=== PATIENT | female | born 1945 | race Caucasian/White ===

== ENCOUNTER 2020-02-28 08:32 | Outpatient (CLI) | payer MEDICARE, SELFPAY ==
--- NOTE | ~2020-02-28 | MM_ITS ---
EXAMINATION: MM screening kika BI w jaqueline HISTORY: Screening TECHNIQUE: Craniocaudal and mediolateral oblique 3-D tomosynthesis images were obtained and synthetic 2-D images were generated. CAD analysis was submitted and interpreted. COMPARISON: Comparison to multiple prior studies sequentially, with oldest reviewed study dated 12/2013. BREAST PARENCHYMAL COMPOSITION: There are scattered areas of fibroglandular density. FINDINGS: There is no evidence of suspicious mass, calcification, or architectural distortion to sugg est malignancy in either breast. There has been no suspicious interval change. IMPRESSION: 1. No mammographic evidence of malignancy. 2. Recommend routine screening mammography in one year. BI-RADS Category 1: Negative Reviewed, dictated and finalized at location A.
== END 2020-02-28 08:33 | disposition home or self-care (01) ==
PROVIDERS: PCP Family Medicine; Visit Provider Family Medicine
DX: Z12.31 Encounter for screening mammogram for malignant neoplasm of breast (principal)
CPT/HCPCS: 77063; 77067

== ENCOUNTER 2021-03-13 07:25 | Outpatient (CLI) | payer MEDICARE, SELFPAY ==
--- NOTE | ~2021-03-13 | MM_ITS ---
EXAMINATION: MM screening kika BI w jaqueline HISTORY: Screening mammogram TECHNIQUE: Craniocaudal and mediolateral oblique 3-D tomosynthesis images were obtained and synthetic 2-D images were generated. CAD analysis was submitted and interpreted. COMPARISON: 02/28/2020, 02/01/2019, 12/15/2017 bilateral digital screening mammogram examinations BREAST PARENCHYMAL COMPOSITION: There are scattered areas of fibroglandular density. FINDINGS: There is a biopsy marker on the right; history of prior bilateral benign breast biopsies. T here is no evidence of suspicious mass, calcification, or architectural distortion to suggest maligna ncy in either breast. There has been no suspicious interval change. IMPRESSION: 1. No mammographic evidence of malignancy. 2. Recommend routine screening mammography in one year. BI-RADS Category 1: Negative Reviewed, dictated and finalized at location A.
== END 2021-03-13 07:26 | disposition home or self-care (01) ==
PROVIDERS: PCP Family Medicine; Visit Provider Family Medicine
DX: Z12.31 Encounter for screening mammogram for malignant neoplasm of breast (principal)
CPT/HCPCS: 77063; 77067

== ENCOUNTER 2021-03-26 15:46 | Outpatient (CLI) | payer MEDICARE, SELFPAY ==
--- NOTE | ~2021-03-26 | US_ITS ---
EXAMINATION: US venous doppler [facility] DATE: 03/26/2021 16:37 INDICATION: Bilateral lower limb edema TECHNIQUE: Cueto scale images without and with compression and Doppler images of the bilateral lower e xtremity veins were obtained. COMPARISON: None FINDINGS: The right common femoral vein, profunda femoral vein, femoral vein, popliteal vein, peroneal trunk, p osterior tibial veins, and greater saphenous vein are patent. The left common femoral vein, profunda femoral vein, femoral vein, popliteal vein, peroneal trunk, po sterior tibial veins, and greater saphenous vein are patent. IMPRESSION: 1. Patent bilateral lower extremity veins. No evidence of deep venous thrombosis. Reviewed, dictated and finalized at location B. IMPRESSION: 1. Patent bilateral lower extremity veins. No evidence of deep venous thrombosi s.
== END 2021-03-26 15:47 | disposition home or self-care (01) ==
LOC: ANHIMG 15:51
PROVIDERS: Visit Provider Hospitalist
DX: M79.89 Other specified soft tissue disorders (principal)
CPT/HCPCS: 93970

== ENCOUNTER 2021-09-02 10:58 | Outpatient (CLI) | payer MEDICARE, SELFPAY ==
--- NOTE | ~2021-09-02 | US_ITS ---
EXAMINATION: US venous doppler LE RT EXAM DATE: 09/02/2021 11:38 INDICATION: Right leg pain and swelling. TECHNIQUE: Multiple grayscale, color flow and Doppler images of the right lower extremity deep venous system were obtained and reviewed. Comparison is made to prior examination from 03/26/2021. FINDINGS: The right common femoral, femoral and profunda veins demonstrate normal color flow, respira tory variation, augmentation and compressibility. Compressibility, color flow confirmed within the r ight popliteal, posterior tibial, peroneal, and greater saphenous veins. IMPRESSION: 1. No right lower extremity deep venous thrombosis. Reviewed, dictated and finalized at location B.
== END 2021-09-02 10:59 | disposition home or self-care (01) ==
LOC: ANHIMG 11:01
PROVIDERS: Visit Provider Internal Medicine
DX: R22.41 Localized swelling, mass and lump, right lower limb (principal)
CPT/HCPCS: 93971

== ENCOUNTER 2021-09-03 13:11 | Outpatient (CLI) | payer MEDICARE, SELFPAY ==
--- NOTE | ~2021-09-03 | XR_ITS ---
EXAM: XR ankle RT min 3V, XR foot RT min 3V HISTORY: ACUTE RT ANKLE PAIN LATERAL SWELLING NO INJURY; right foot pain COMPARISON: None available FINDINGS: Mild osteopenia. No fracture or dislocation. Scattered degenerative changes in the ankle a nd foot joints. Os navicularis. Plantar enthesopathy. Os trigonum. Small volume right ankle joint eff usion. IMPRESSION: No acute osseous finding in the right ankle or foot. Small right ankle joint effusion. Reviewed, dictated and finalized at location K. IMPRESSION: No acute osseous finding in the right ankle or foot. Small right ankle joint ef fusion.
== END 2021-09-03 13:12 | disposition home or self-care (01) ==
LOC: ANHIMG 13:21
PROVIDERS: PCP Internal Medicine; Visit Provider Nurse Practitioner Family
DX: M25.571 Pain in right ankle and joints of right foot (principal); M79.671 Pain in right foot; M25.741 Osteophyte, right hand
CPT/HCPCS: 73610; 73630

== ENCOUNTER 2021-10-16 08:43 | Outpatient (CLI) | payer MEDICARE, SELFPAY ==
--- NOTE | ~2021-10-16 | DEXA_ITS ---
Bone Density Report Name: ELLY BA Age: 76 Sex: Female Ethnicity: White Date of : 1945 Indication: postmenopausal osteoporosis; monitoring treatment; height loss; prior fracture; Referring Provider: COLLIN, ANTHONY Study: Bone densitometry was performed. Exam Date: October 16, 2021 Accession number: [id number] Bone Density: Region BMD T-score Z-score Classification AP Spine(L1-L4) 0.660 -3.5 -1.0 Osteoporosis Femoral Neck (Left) 0.506 -3.1 -0.9 Osteoporosis Total Hip (Left) 0.651 -2.4 -0.5 Osteopenia Femoral Neck (Right) 0.523 -2.9 -0.8 Osteoporosis Total Hip (Right) 0.677 -2.2 -0.3 Osteopenia Total Hip Mean 0.664 -2.3 -0.4 Osteopenia World Health Organization criteria for BMD impression classify patients as: Normal (T-score at or above -1.0), Osteopenia (T-score between -1.0 and -2.5), or Osteoporosis (T-score at or below -2.5). 10-year Fracture Risk: FRAX not reported because: Some T-score for Spine Total or Hip Total or Femoral Neck at or below -2.5 Treated for osteoporosis Previous Exams: Region Exam Age BMD T-score BMD Change BMD Change Date g/cm2 vs Baseline vs Previous AP Spine (L1-L4) 10/16/2021 76 0.660 -3.5 -0.031 (-4.4%) -0.001 (-0.2%) 02/01/2019 73 0.661 -3.5 -0.029 (-4.2%) -0.025 (-3.7%) 01/06/2017 71 0.687 -3.3 -0.004 (-0.6%) -0.004 (-0.6%) 09/14/2013 67 0.690 -3.2 Total Hip(Left) 10/16/2021 76 0.651 -2.4 -0.075 (-10.3% -0.076 (-10.4% 02/01/2019 73 0.726 -1.8 0.001 (0.1%)# -0.010 (-1.3%) 01/06/2017 71 0.736 -1.7 0.010 (1.4%)# 0.010 (1.4%)# 09/14/2013 67 0.726 -1.8 Total Hip(Right) 10/16/2021 76 0.677 -2.2 -0.118 (-14.9% -0.097 (-12.5% 02/01/2019 73 0.774 -1.4 -0.021 (-2.7%) 0.018 (2.4%) 01/06/2017 71 0.756 -1.5 -0.039 (-5.0%) -0.039 (-5.0%) 09/14/2013 67 0.796 -1.2 *Denotes significance at 95% confidence level, LSC for AP Spine = 0.022 g/cm2, LSC for Total Hip = 0.027 g/cm2 # Denotes dissimilar scan types or analysis methods Clinical Information Provided by Patient: Has had a low trauma fracture Is being treated for osteoporosis Patient maximum height was 63 Menopause Age: 49 No regular weight bearing exercise Drinks caffeinated beverages Onset of menses at age 12 Number of children 2 Impression: The patient has established osteoporosis, based on the Total Spine T-score and the existence of a prior fracture. The patient has risk fa
== END 2021-10-16 08:44 | disposition home or self-care (01) ==
PROVIDERS: PCP Internal Medicine; Visit Provider Internal Medicine
DX: Z78.0 Asymptomatic menopausal state (principal); M85.89 Other specified disorders of bone density and structure, multiple sites; M81.0 Age-related osteoporosis without current pathological fracture
CPT/HCPCS: 77080

== ENCOUNTER 2022-11-03 09:20 | Outpatient (CLI) | payer MEDICARE, SELFPAY ==
--- NOTE | ~2022-11-03 | MM_ITS ---
EXAMINATION: MM screening kika BI w jaqueline HISTORY: Screening mammogram TECHNIQUE: Craniocaudal and mediolateral oblique 3-D tomosynthesis images were obtained and synthetic 2-D images were generated. CAD analysis was submitted and interpreted. COMPARISON: 03/13/2021, 02/28/2020, 02/01/2019 bilateral screening mammogram examinations BREAST PARENCHYMAL COMPOSITION: There are scattered areas of fibroglandular density. FINDINGS: There is a biopsy marker on the right. History of bilateral benign breast biopsies. There i s no evidence of suspicious mass, calcification, or architectural distortion to suggest malignancy in either breast. There has been no suspicious interval change. IMPRESSION: 1. No mammographic evidence of malignancy. 2. Recommend routine screening mammography in one year. BI-RADS Category 1: Negative Reviewed, dictated and finalized at location A.
== END 2022-11-03 09:21 | disposition home or self-care (01) ==
PROVIDERS: PCP Internal Medicine; Visit Provider Internal Medicine
DX: Z12.31 Encounter for screening mammogram for malignant neoplasm of breast (principal)
CPT/HCPCS: 77063; 77067

== ENCOUNTER 2024-08-18 16:24 | Emergency (ER) | payer MEDICARE, SELFPAY ==
--- NOTE | ~2024-08-18 | XR_ITS ---
XR wrist RT min 3V 08/18/2024 17:35 Indication: Procedure: 3 views right wrist Comparison: 04/16/2014 Findings: There is a fracture of the radial styloid which is possibly comminuted. There is impaction of the distal aspect of the radius with ventral angulation. There is moderate diffuse soft tissue swe lling of the wrist. 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 Impression: 1: Mildly displaced, possibly comminuted distal radial fracture with ventral angulation. This is near the site of prior fracture seen on 2013 examination. Reviewed, dictated and finalized at location A. Impression: 1: Mildly displaced, possibly comminuted distal radial fracture with ventral an gulation. This is near the site of prior fracture seen on 2013 examination.
--- NOTE | ~2024-08-18 | XR_ITS ---
XR elbow RT min 3V 08/18/2024 17:35 Indication: Right elbow pain after fall Procedure: 3 views right elbow Comparison: No prior studies for comparison. Findings: There is an avulsion fracture from the right humeral lateral epicondyle with associated sof t tissue swelling. Moderate joint effusion. No foreign bodies. Impression: 1: Avulsion fracture right humeral lateral epicondyle with associated soft tissue swelling. Reviewed, dictated and finalized at location A. Impression: 1: Avulsion fracture right humeral lateral epicondyle with associated soft tiss ue swelling.
--- NOTE | ~2024-08-18 | CT_ITS ---
CT diagnostic chest wo con Ordering provider: Kisha Amin PA-C History: 78 years Female with . R rib/breast pain s/p fall . Comparison: None. Technique: CT chest without IV contrast.Radiation reduction technique utilized.The dose-length produc t was 470.25 mGy-cm. FINDINGS: VISUALIZED THORACIC INLET: Normal. MEDIASTINUM: Aorta/coronary arteries: Mild atheromatous disease. Heart/other: The heart is not enlarged. Lymph nodes: No mediastinal or hilar adenopathy. LUNGS: 5.4, 4 and 4 mm nodules seen in the right upper lobe. Possible Granuloma versus nodule seen in the left lower lobe measuring 5 mm. Focal atelectatic changes versus pneumonia seen in the right upper lobe. Dependent atelectatic changes with minimal fibrotic changes in the lung bases. minimal atelectatic changes in the lingula.. No pulmonary masses. No effusions. No pneumothorax. VISUALIZED UPPER ABDOMEN: Status post cholecystectomy. Small sliding hiatus hernia. Otherwise, the vi sualized upper abdomen is normal. MUSCULOSKELETAL: Soft tissues: The superficial soft tissues are normal. Bones: Age appropriate degenerative changes of the spine. No definite rib fractures seen. IMPRESSION: 1. Multiple nodules in the lungs with the largest measuring 5 mm. 6 months follow-up CT is advised. 2. Focal atelectatic changes in the right upper lobe and lingula. Follow-up advised. 3. No definite fractures seen. 4. Sliding hiatus hernia. Reviewed, dictated and finalized at location A. IMPRESSION: 1. Multiple nodules in the lungs with the largest measuring 5 mm. 6 months fol low-up CT is advised. 2. Focal atelectatic changes in the right upper lobe and lingula. Follow-up ad vised. 3. No definite fractures seen. 4. Sliding hiatus hernia.
--- OUTSIDE RECORDS SUMMARY | 2024-08-18 16:26 | XMS_ITS | Clinical Summary ---
Author Organization [facility] Address [address] [place] [address] Care Team Providers Care Sighter Name Role Phone Joe Harman MD Unavailable [phone] Willis Gill MD Primary Care Provider Allergies No known active allergies Medications aspirin EC (ASPIRIN EC) 81 MG tablet Take 1 tablet (81 mg total) by mouth daily. 4 Active sertraline (ZOLOFT) 25 MG tabletIndications :Mild episode of recurrent major depressive disorder Take 0.5 tablets (12.5 mg total) by mouth nightly at bedtime. 90 tablet 1 4 Active rosuvastatin (CRESTOR) 5 MG tabletIndications :TIA (transient ischemic attack),Benign essential hypertension Take 1 tablet (5 mg total) by mouth nightly at bedtime. New dose 90 tablet 1 4 Active omeprazole (PRILOSEC) 40 MG capsuleIndication s:Gastroesophagea l reflux disease without esophagitis Take 1 capsule (40 mg total) by mouth daily as needed. 90 capsule 2 4 Active losartan (COZAAR) 25 MG tabletIndications :Benign essential hypertension Take 1 tablet (25 mg total) by mouth daily. 90 tablet 1 4 Active alendronate (FOSAMAX) 70 MG tabletIndications :Age-related osteoporosis without current pathological fracture Take 1 tablet (70 mg total) by mouth every 7 days. Take the medicine on an empty stomach. It should be taken as soon as you get out of bed in the morning and at least 30 minutes before any food, beverage, or other medicines. Take with about 8oz of water. 12 tablet 1 4 Active oxybutynin XL (DITROPAN-XL) 5 MG 24 hr tabletIndications :Overactive bladder Take 1 tablet (5 mg total) by mouth daily. 90 tablet 4 Active albuterol sulfate HFA 108 (90 Base) MCG/ACT inhalerIndication s:URTI (acute upper respiratory infection) Inhale 2 puffs into the lungs every 6 (six) hours as needed. 18 g 5 Active benzonatate (TESSALON) 200 MG capsuleIndication s:URTI (acute upper respiratory infection) Take 1 capsule (200 mg total) by mouth 3 (three) times daily as needed. 20 capsule 5 07/21/19 25 oseltamivir (TAMIFLU) 75 MG capsuleIndication s:URTI (acute upper respiratory infection),Influe nza A Take 1 capsule (75 mg total) by mouth 2 (two) times daily for 5 days. 10 capsule 5 07/19/19 25 Active Problems Problem Noted Date Diagnosed Date Anemia, unspecified type 09/24/2023 Multiple atypical skin moles 09/24/2023 Mild episode of recurrent major depressive disor farshad 01/09/2022 Osteoporosis 11/03/2021 Osteopenia 11/03/2021 Nonrheumatic tricuspid valve regurgitation 05/21 Primary osteoarthritis of both knees 05/21/2021 TIA (transient ischemic attack) 01/01/2016 Nonrheumatic aortic valve insufficiency 01/01/20 16 Benign essential hypertension Encounters Date Type Department Care Team Description 07/14/2024 2:20 PM ASSISTANT PROFESSOR OF BUSINESS Office Visit [facility] - [address] [place] [address] Willis Gill MD Cough; Congestion; Fatigue; Diarrhea 07/14/2024 Travel from Last 3 Months Immunizations Name Administration Dates Next Due Fluad influenza vaccine, Camilo drivalent (aIIV4), Inactivated, adjuvanted, preservative free, 0.5 mL,IM use 03/09/2017 Fluzone High Dose (IIV, triv alent, 0.5mL) 04/10/2024 Fluzone High Dose - >Age 65 (Prefilled Syringe) 03/12/2023,03/23/2022,03/09/2020,2017,03/26/2015 Influenza Adult (Generic) 03/08/2021 MODERNA COVID-19 (12+) MRNA, LNP-S, PF, 100 MCG/ 0.5 ML DOSE 03/14/2021,08/12/2020,07/11/2020 Pneumococcal (Pneumovax 23) 08/20/2021 Pneumococcal (Prevnar 13) 09/25/2022 Family History Medical History Relation Comments CABG Brother [place] Brother Stent Cardiac Brother PTCA Heart Attack Father Cancer Mother Colon Cancer Mother Stroke Mother Arthritis Sister Cancer Sister breast cancer PTCA Sister Parkinson's Disease Sister Stent Cardiac Sister Relation Status Comments Brother Father Mother Sister Alive Social History Tobacco Use Types Packs/Day Years Used Date Smoking Tobacco: Never Smokeless Tobacco: Never Tobacco Cessation:Counseling Given: Yes Comments:counseled by Dr Gill Alcohol Use Standard Drinks/Week Comments Not Currently 0 (1 standard drink = 0.6 oz pur e alcohol) PHQ-2 Answer Date Recorded Patient Health Questionnaire-2 Score 0 04/10/2024 Comments No Sex and Gender Information Value Date Recorded Sex Assigned at Female 07/14/2024 2:34 PM ASSISTANT PROFESSOR OF BUSINESS Legal Sex Female 10:30 PM CDT Gender Identity Female 09/08/2021 2:46 PM CDT Sexual Orientation Straight 07/14/2024 2: 34 PM ASSISTANT PROFESSOR OF BUSINESS Occupation Industry Job Start Date Job End Date Not on file Not on file Not on file Not on file Last Filed Vital Signs Vital Sign Reading Time Taken Comments Blood Pressure 103/80 07/14/2024 2:35 PM ASSISTANT PROFESSOR OF BUSINESS Pulse 81 07/14/2024 2:35 PM ASSISTANT PROFESSOR OF BUSINESS Temperature 37.6 C (99.6 F) 07/14/2024 2:35 PM ASSISTANT PROFESSOR OF BUSINESS Respiratory Rate 12 07/14/2024 2:35 PM ASSISTANT PROFESSOR OF BUSINESS Oxygen Saturation 94% 07/14/2024 2:35 PM ASSISTANT PROFESSOR OF BUSINESS Inhaled Oxygen Concentration - - Weight 75.7 kg (166 lb 12.8 oz) 07/14/2024 2:35 PM ASSISTANT PROFESSOR OF BUSINESS Height 160 cm (5' 3 ) 07/14/2024 2:35 PM ASSISTANT PROFESSOR OF BUSINESS Body Mass Index 29.55 07/14/2024 2:35 PM ASSISTANT PROFESSOR OF BUSINESS Plan of Treatment Upcoming Encounters Date Type Department Care Team (Late st Contact Info) Description 08/23/2024 2:40 PM CDT Office Visit [facility] - [place] [address] [place] [address] [address] [place] [address] Willis Gill MD [address] [facility] [address] [place], [place] [id number] 10/25/2024 11:00 AM CDT Office Visit [facility], [facility] [address] [place], [place] [id number] Joe Harman MD [facility]. [facility] [address] [place], [place] [id number] Health Maintenance Due Date Last Done Comments DTaP, Tdap and Td Vaccines (1 - Tdap) 10/16/1963 Zoster Vaccines (1 of 2) 1994 Annual Medicare Wellness Visit 2009 RSV Immunization or 60+ Years (1 - 1-dose 75+ series) 10/16/2019 COVID-19 Vaccine ( season) 2024 11/16/2022, 03/14/2021, 08/12/2020, Additional history exists PHQ-2 (Physician [place]) 05/24/2024 04/10/2024 Colorectal Cancer Screening Colonoscopy (10 Years) Discontinued 06/22/2018, 05/03/2013 Dexa Scan (General) Completed 10/16/2021, 9 Hepatitis C Completed 09/25/2022, 08/20/2021 Pneumococcal Vaccine: 65+ Years Completed 09/25/2022, 08/20/2021 Influenza Adult Completed 04/10/2024, 02/22, 03/23/2022, Additional history exists Meningococcal B Vaccine Aged Out No l onger eligible based on patient's age to complete this topic Meningococcal Vaccine Aged Out No jossy maira eligible based on patient's age to complete this topic RSV Immunizations Under 20 Months Aged Out No longer eligible based on patient's age to complete this topic Procedures Procedure Name Priority Date/Time Associated Diagnosis Comments CORONAVIRUS (COVID-19) INFLUENZA A & B ANTIGEN IA PANEL Routine 07/14/2024 URTI (acute upper respiratory infection) HEPATITIS C ANTIBODY Routine 09/25/2022 10:06 AM CDT General medical exam BONE DENSITY/DEXA Routine 10/16/2021 12: 00 AM CDT Postmenopausal COLONOSCOPY GENERIC (SCAN ORDER) 06/22/2018 from Last 3 Months or Most Recently Relevant to Health Maintenance Results * (ABNORMAL) CORONAVIRUS (COVID-19) INFLUENZA A & B ANTIGEN IA PANEL (07/14/2024) [facility] CORONAVIRUS ANTIGEN IA NEGATIVE NEGATIVE [address], [place] INFLUENZA A POSITIVE(A) NEGATIVE MG[address], [place] INFLUENZA B NEGATIVE NEGATIVE [address], [place] Internal Control: VALID VALID [address] [place] NASAL STRUCTURE / Unknown 07/14/2024 us Willis Gill MD MICROBIOLOGY - GENERAL ORDERABLE S Final Result [address], [place] [address] [place] [address], [place] [phone] * HEPATITIS C ANTIBODY (09/25/2022 10:06 AM CDT) Pathologist [facility] HEPATITIS C AB NON-REACTI VE NON-REACT KYLE 09/25/2022 9:[address] [facility] Comment: ANTIBODIES TO HCV NOT DETECTED. DOES NOT EXCLUDE THE POSSIBILITY OF EXPOSURE TO HCV. 09/25/2022 10:0 6 AM CDT us Willis Gill MD LABORATORY Final Result [facility] [address] [place] [address], [place] [phone] [id number] * BONE DENSITY/DEXA (10/16/2021 12:00 AM CDT) Anatomical Region Laterality Modality Bone Bone Density 10/16/2021 Willis Gill MD DEXA Final Result * COLONOSCOPY GENERIC (06/22/2018) 06/22/2018 Narrative 06/22/2018 Ordered by an unspecified provider. Documents Scanned SCANNING Final Result from Last 3 Months or Most Recently Relevant to Health Maintenance Insurance MEDICARE MEDICARE Care Teams Sighter Relationship Specialty Start Date End Date Willis Gill MD [address] [facility] [address] [place] [address] PCP - General INTERNAL MEDICINE 04/03/21 Joe Harman MD [facility]. [address] [address] [place] [employer] Operator CARDIOVASCULAR DISEASE 12/23/15
--- OUTSIDE RECORDS SUMMARY | 2024-08-18 16:26 | XMS_ITS | Encounter Summary ---
Author Organization [facility] Address [address] [place] [address] Care Team Providers Care Group Social Worker Name Role Phone Joe Harman MD Unavailable [phone] Perla Luna MD Primary Care Provider Maria D Dawn NP Primary Care Provider Willis Almonte MD Primary Care Provider [phone] Encounter Details Date Type Department Care Team (Late st Contact Info) Description 09/21/2017 [facility] at [address] [address] Tex Patel MA Social History Tobacco Use Types Packs/Day Years Used Date Smoking Tobacco: Never Smokeless Tobacco: Never Alcohol Use Standard Drinks/Week Comments No 0 (1 standard drink = 0.6 oz pur e alcohol) Comments Unknown Sex and Gender Information Value Date Recorded Sex Assigned at Female 07/14/2024 2:34 PM RAMPMAN Legal Sex Female 10:30 PM CDT Gender Identity Female 09/08/2021 2:46 PM CDT Sexual Orientation Straight 07/14/2024 2: 34 PM RAMPMAN Occupation Industry Job Start Date Job End Date Not on file Not on file Not on file Not on file documented as of this encounter Progress Notes * PEMA Valenzuela - 09/21/2017 2:35 PM CDT PG pt send letter continue current meds documented in this encounter Plan of Treatment Upcoming Encounters Date Type Department Care Team (Late st Contact Info) Description 08/23/2024 2:40 PM CDT Office Visit [facility] Medical Group Multispecialty Care - New Site [address] [facility] [address] [place] [address] Willis Gill MD [address] [facility] [address] [place] [address] 10/25/2024 11:00 AM CDT Office Visit [facility] [address] [facility] [address] [place], [place] [id number] Joe Harman MD Three [facility]. [address] [place], [place] [id number] documented as of this encounter Procedures Procedure Name Priority Date/Time Associated Diagnosis Comments THYROID STIM HORMONE TSH Routine 08/28/2020 CBC (OUTSIDE LAB) Routine 07/25/2020 COMPREHENSIVE METABOLIC PANEL Routine 07/25/2020 LIPID PANEL Routine 07/25/2020 CK (CPK) Routine 07/25/2020 CBC (OUTSIDE LAB) Routine 12/26/2019 COMPREHENSIVE METABOLIC PANEL Routine 12/26/2019 LIPID PANEL Routine 03/01/2019 CBC (OUTSIDE LAB) Routine 08/17/2018 COMPREHENSIVE METABOLIC PANEL Routine 08/17/2018 LIPID PANEL Routine 08/17/2018 THYROID STIM HORMONE TSH Routine 08/17/2018 VITAMIN D, 25 OH Routine 08/17/2018 CK (CPK) Routine 08/17/2018 CBC (OUTSIDE LAB) Routine 03/02/2018 COMPREHENSIVE METABOLIC PANEL Routine 03/02/2018 BASIC METABOLIC PANEL Routine 09/20/2017 LIPID PANEL Routine 09/20/2017 documented in this encounter Results * THYROID STIM HORMONE, TSH (08/28/2020) TSH 1.97 0.40 - 4.50 08/28/2020 us [facility] Final Result * CBC (OUTSIDE LAB) (07/25/2020) WBC 3.9 HGB 14.5 HCT 42.6 PLT 127 07/25/2020 us Doc [facility] Abstract LAB-OUTSIDE/ABSTRACTED Final Result * CK (CPK) (07/25/2020) CPK 50 29 - 143 07/25/2020 us Doc [facility] Final Result * COMPREHENSIVE METABOLIC PANEL (07/25/2020) SODIUM S/P/B 143 POTASSIUM S/P/B 4.3 CO2 30 CHLORIDE S/P/B 107 GLUCOSE 104 mg/dL CALCIUM S/P/B 9.4 BUN 11 CREATININE S/P/B 0.79 0.5 - 1.0 EGFR AFR. AMER. 85 <=90 EGFR NON-AFR. AMER. 73 <=90 ALKALINE PHOSPHATASE S/P/B 118 ALT 18 AST 21 BILIRUBIN TOTAL S/P/B 0.9 ALBUMIN S/P/B 3.8 3.5 - 5.0 TOTAL PROTEIN S/P/B 6.4 GLOBULIN 2.6 07/25/2020 us Doc [facility] Final Result * LIPID PANEL (07/25/2020) CHOLESTEROL 183 HDL 69 TRIGLYCERIDES 60 NON HDL CHOLESTEROL 114 LDL (CALCULATED) 99 07/25/2020 us [employer] [facility] Edited Resul t - Final * CBC (OUTSIDE LAB) (12/26/2019) Pathologist [facility] WBC 3.8 HGB 14.7 HCT 43.3 PLT 139 12/26/2019 [facility]-OUTSIDE/ABSTRACTED Final Result * COMPREHENSIVE METABOLIC PANEL (12/26/2019) Pathologist [facility] SODIUM S/P/B 142 POTASSIUM S/P/B 3.8 CO2 29 CHLORIDE S/P/B 106 GLUCOSE 98 mg/dL CALCIUM S/P/B 9.2 BUN 9 CREATININE S/P/B 0.83 0.5 - 1.0 EGFR AFR. AMER. 80 <=90 EGFR NON-AFR. AMER. 69 <=90 ALKALINE PHOSPHATASE S/P/B 95 ALT 15 AST 20 BILIRUBIN TOTAL S/P/B 1.0 ALBUMIN S/P/B 3.8 3.5 - 5.0 TOTAL PROTEIN S/P/B 6.3 GLOBULIN 2.5 12/26/2019 us Doc [facility] Final Result * LIPID PANEL (03/01/2019) CHOLESTEROL 171 HDL 65 TRIGLYCERIDES 82 NON HDL CHOLESTEROL 106 LDL (CALCULATED) 89 03/01/2019 us Doc [facility] Edited Resul t - Final * CK (CPK) (08/17/2018) CPK 86 08/17/2018 us Doc [facility] Final Result * LIPID PANEL (08/17/2018) Pathologist [facility] CHOLESTEROL 177 HDL 64 TRIGLYCERIDES 89 NON HDL CHOLESTEROL 113 LDL (CALCULATED) 95 08/17/2018 us Doc [facility] Edited Resul t - Final * VITAMIN D, 25 OH (08/17/2018) Pathologist [facility] VITAMIN D 25 HYDROXY S/P/B 30 08/17/2018 us Doc [facility] Final Result * CBC (OUTSIDE LAB) (08/17/2018) [facility] WBC 2.9 HGB 13.1 HCT 38.1 PLT 147 08/17/2018 us Doc [facility] LAB-OUTSIDE/ABSTRACTED Final Result * THYROID STIM HORMONE, TSH (08/17/2018) Pathologist [facility] TSH 2.38 08/17/2018 us Doc [facility] Final Result * COMPREHENSIVE METABOLIC PANEL (08/17/2018) Pathologist [facility] SODIUM S/P/B 141 POTASSIUM S/P/B 4.4 CO2 27 CHLORIDE S/P/B 106 GLUCOSE 104 mg/dL CALCIUM S/P/B 9.3 BUN 13 CREATININE S/P/B 0.97 0.5 - 1.0 EGFR AFR. AMER. 67 <=90 EGFR NON-AFR. AMER. 58 <=90 ALKALINE PHOSPHATASE S/P/B 109 ALT 16 AST 24 BILIRUBIN TOTAL S/P/B 0.7 ALBUMIN S/P/B 3.9 3.5 - 5.0 TOTAL PROTEIN S/P/B 6.3 GLOBULIN 2.4 08/17/2018 us Doc [facility] Edited Resul t - Final * CBC (OUTSIDE LAB) (03/02/2018) WBC 3.1 HGB 13.9 HCT 39.5 PLT 151 03/02/2018 us Doc [facility] LAB-OUTSIDE/ABSTRACTED Final Result * COMPREHENSIVE METABOLIC PANEL (03/02/2018) SODIUM S/P/B 142 POTASSIUM S/P/B 4.1 CO2 27 CHLORIDE S/P/B 109 GLUCOSE 100 mg/dL CALCIUM S/P/B 8.9 BUN 9 CREATININE S/P/B 0.81 0.5 - 1.0 EGFR AFR. AMER. 84 <=90 EGFR NON-AFR. AMER. 72 <=90 ALKALINE PHOSPHATASE S/P/B 107 ALT 18 AST 23 BILIRUBIN TOTAL S/P/B 0.9 ALBUMIN S/P/B 3.8 3.5 - 5.0 TOTAL PROTEIN S/P/B 6.3 GLOBULIN 2.5 03/02/2018 us Doc [facility] Final Result * BASIC METABOLIC PANEL (09/20/2017) SODIUM S/P/B 142 POTASSIUM S/P/B 4.0 CO2 27 CHLORIDE S/P/B 107 GLUCOSE 96 mg/dL CALCIUM S/P/B 9.1 BUN 8 CREATININE S/P/B 0.78 0.5 - 1.0 EGFR AFR. AMER. 88 <=90 EGFR NON-AFR. AMER. 76 <=90 09/20/2017 us Doc [facility] Final Result * LIPID PANEL (09/20/2017) CHOLESTEROL 192 HDL 70 TRIGLYCERIDES 94 NON HDL CHOLESTEROL 122 LDL (CALCULATED) 103 09/20/2017 us Doc [facility] Final Result documented in this encounter Visit Diagnoses Not on filedocumented in this encounter Additional Health Concerns Infection Onset Date Last Indicated Resolved Time COVID-19 Rule Out 07/14/2024 07/14/2024 07/14/2024 3:12 PM RAMPMAN Influenza - Seasonal 07/14/2024 07/14/2024 025 12:32 AM RAMPMAN documented as of this encounter Care Teams Group Social Worker Relationship Specialty Start Date End Date Perla Luna MD Three [facility]. [address] [address] PCP - General FAMILY PRACTICE 07/22/17 01/21/21 Maria D Dawn, ONCOLOGY TECHNICIAN Three [facility]. [address] [address] PCP - General NURSE PRACTITIONER 01/22/21 04/02/21 Willis Gill MD [address] [facility] [address] [place] [address] PCP - General INTERNAL MEDICINE 04/03/21 Joe Harman MD Three [facility]. [address] [address] Poli Nurse Administrator CARDIOVASCULAR DISEASE 12/23/15 documented as of this encounter
--- OUTSIDE RECORDS SUMMARY | 2024-08-18 16:26 | XMS_ITS | Encounter Summary ---
Author Organization [facility] Address [address] [place] [address] Care Team Providers Care Musical Instrument Supervisor Name Role Phone Joe Harman MD Unavailable [phone] Willis Gill MD Primary Care Provider [phone] Encounter Details Date Type Department Care Team (Late st Contact Info) Description 01/22/2022 Academic Earth Message Enc [facility] Medical Group Multispecialty Care - [address] [place] [address] Mychart, [facility] Provider Lidoderm patches Social History Tobacco Use Types Packs/Day Years Used Date Smoking Tobacco: Never Smokeless Tobacco: Never Comments:counseled by Dr Leticia massey Alcohol Use Standard Drinks/Week Comments No 0 (1 standard drink = 0.6 oz pur e alcohol) PHQ-2 Answer Date Recorded PHQ-2 Score - If the patient scores above 3, please move on to questions 3-9 1 01/09/2022 Comments No Sex and Gender Information Value Date Recorded Sex Assigned at Female 07/14/2024 2:34 PM TECHNICAL LEAD Legal Sex Female 10:30 PM CDT Gender Identity Female 09/08/2021 2:46 PM CDT Sexual Orientation Straight 07/14/2024 2: 34 PM TECHNICAL LEAD Occupation Industry Job Start Date Job End Date Not on file Not on file Not on file Not on file COVID-19 Exposure Response Date Recorded In the last 10 days, have yo u been in contact with someone who was confirmed or suspected to have Coronavirus/COVID-19? No / Unsure 01/20/2022 7:30 AM CDT documented as of this encounter Plan of Treatment Upcoming Encounters Date Type Department Care Team (Late st Contact Info) Description 08/23/2024 2:40 PM CDT Office Visit [facility] Medical Group Multispecialty Care - [place] [address] [address] [place] [address] Willis Gill MD [address] [address] 10/25/2024 11:00 AM CDT Office Visit [facility] [address] [facility] [address] [place] [address] Joe Harman MD [facility] [address] [place], [place] [id number] documented as of this encounter Visit Diagnoses Not on filedocumented in this encounter Additional Health Concerns Infection Onset Date Last Indicated Resolved Time COVID-19 Rule Out 07/14/2024 07/14/2024 07/14/2024 3:12 PM TECHNICAL LEAD Influenza - Seasonal 07/14/2024 07/14/2024 025 12:32 AM TECHNICAL LEAD Assessment Noted Time PHQ-9 Depression Total Score: 4 08/21/19 22 9:24 AM CDT documented as of this encounter Care Teams Musical Instrument Supervisor Relationship Specialty Start Date End Date Willis Gill MD [address] [place] [address] PCP - General INTERNAL MEDICINE 04/03/21 Joe Harman MD Three [facility] [address] [place], [place] [address] [place] Production Corrugator CARDIOVASCULAR DISEASE 12/23/15 documented as of this encounter
--- OUTSIDE RECORDS SUMMARY | 2024-08-18 16:26 | XMS_ITS | Encounter Summary ---
Author Organization [facility] Address [address] [place] [address] Care Team Providers Care Dyeing Machine Back Tender Name Role Phone Joe Harman MD Unavailable [phone] Willis Gill MD Primary Care Provider [phone] Encounter Details Date Type Department Care Team (Late st Contact Info) Description 09/04/2021 MyChart Message Enc [facility] Medical Group Multispecialty Care - [address] [place] [address] Maria D Dawn, BLASTING MINER xray Social History Tobacco Use Types Packs/Day Years Used Date Smoking Tobacco: Never Smokeless Tobacco: Never Comments:counseled by Dr Leticia massey Alcohol Use Standard Drinks/Week Comments No 0 (1 standard drink = 0.6 oz pur e alcohol) PHQ-2 Answer Date Recorded PHQ-2 Score - If the patient scores above 3, please move on to questions 3-9 2 08/20/2021 Comments No Sex and Gender Information Value Date Recorded Sex Assigned at Female 07/14/2024 2:34 PM ROUTE SALES SPECIALIST Legal Sex Female 10:30 PM CDT Gender Identity Female 09/08/2021 2:46 PM CDT Sexual Orientation Straight 07/14/2024 2: 34 PM ROUTE SALES SPECIALIST Occupation Industry Job Start Date Job End Date Not on file Not on file Not on file Not on file COVID-19 Exposure Response Date Recorded In the last 10 days, have yo u been in contact with someone who was confirmed or suspected to have Coronavirus/COVID-19? No / Unsure 08/19/2021 10:20 AM CDT documented as of this encounter Plan of Treatment Upcoming Encounters Date Type Department Care Team (Late st Contact Info) Description 08/23/2024 2:40 PM CDT Office Visit [facility] Medical Group Multispecialty Care - [place] [address] [address] [place] [address] Willis Gill MD [address] [address] 10/25/2024 11:00 AM CDT Office Visit [place] [facility] [address] [facility] [address] [place] [address] Joe Harman MD Three [facility] [address] [place], [place] [address] documented as of this encounter Visit Diagnoses Not on filedocumented in this encounter Additional Health Concerns Infection Onset Date Last Indicated Resolved Time COVID-19 Rule Out 07/14/2024 07/14/2024 07/14/2024 3:12 PM ROUTE SALES SPECIALIST Influenza - Seasonal 07/14/2024 07/14/2024 025 12:32 AM ROUTE SALES SPECIALIST Assessment Noted Time PHQ-9 Depression Total Score: 4 08/21/19 22 9:24 AM CDT documented as of this encounter Care Teams Dyeing Machine Back Tender Relationship Specialty [place] [address] [place] [address] PCP - General INTERNAL MEDICINE 04/03/21 Joe Harman MD Three [facility] [address] [place], [place] [address] [place] Special Crimes Investigator CARDIOVASCULAR DISEASE 12/23/15 documented as of this encounter
--- OUTSIDE RECORDS SUMMARY | 2024-08-18 16:26 | XMS_ITS | Encounter Summary ---
Author Organization [facility] Address [address] [place] [address] Care Team Providers Care Metal Plater Name Role Phone Joe Harman MD Unavailable [phone] Willis Gill MD Primary Care Provider [phone] Encounter Details Date Type Department Care Team (Late st Contact Info) Description 02/26/2022 MyChart Message Enc [address] [place] [address] Zoie Lutz, ELEMENTARY SECRETARY Mammogram Social History Tobacco Use Types Packs/Day Years [...] Sex Assigned at Female 07/14/2024 2:34 PM ACCOUNTS SPECIALIST Legal Sex Female 10:30 PM CDT Gender Identity Female 09/08/2021 2:46 PM CDT Sexual Orientation Straight 07/14/2024 2: 34 PM ACCOUNTS SPECIALIST Occupation Industry Job Start Date Job End Date Not on file Not on file Not on file Not on file documented as of this encounter Plan of Treatment Upcoming Encounters Date Type Department Care Team (Late st Contact Info) Description 08/23/2024 2:40 PM CDT [facility] [address] [place] [address] Willis Gill MD [address] [place] [address] [address] 10/25/2024 11:00 AM CDT Office Visit [place] [facility] THREE [facility], [address] [address] Joe Harman MD Three [facility]. [facility] [address] [place] [address] documented as of this encounter Visit Diagnoses Not on filedocumented in this encounter Additional Health Concerns Infection Onset Date Last Indicated Resolved Time COVID-19 Rule Out 07/14/2024 07/14/2024 07/14/2024 3:12 PM ACCOUNTS SPECIALIST Influenza - Seasonal 07/14/2024 07/14/2024 025 12:32 AM ACCOUNTS SPECIALIST Assessment Noted Time PHQ-9 Depression Total Score: 4 08/21/19 22 9:24 AM CDT documented as of this encounter Care Teams Metal Plater Relationship Specialty Start Date End Date Willis Gill MD [address] [place] [address] [address] PCP - General INTERNAL MEDICINE 04/03/21 Joe Harman MD Three [facility]. [address] [address] [place] Data Control Clerk Supervisor CARDIOVASCULAR DISEASE 12/23/15 documented as of this encounter
--- OUTSIDE RECORDS SUMMARY | 2024-08-18 16:26 | XMS_ITS | Encounter Summary ---
Author Organization [facility] Address [address] [place] [address] Care Team Providers Care Special Education Associate Name Role Phone Dez Al MD Primary Care Provider [phone] Joe Harman MD Unavailable [phone] Eleazar Al MD Primary Care Provider [phone] Perla Luna MD Primary Care Provider Maria D Dawn NP Primary Care Provider Willis Almonte MD Primary Care Provider [phone] Encounter Details Date Type Department Care Team (Late st Contact Info) Description 01/02/2016 Abstract [facility] AT [address] [address] Tex Patel [place] Social History Tobacco Use Types Packs/Day Years Used Date Smoking Tobacco: Never Smokeless Tobacco: Never Alcohol Use Standard Drinks/Week Comments No 0 (1 standard drink = 0.6 oz pur e alcohol) Comments Unknown Sex and Gender Information Value Date Recorded Sex Assigned at Female 07/14/2024 2:34 PM HOSPITAL SECRETARY Legal Sex Female 10:30 PM CDT Gender Identity Female 09/08/2021 2:46 PM CDT Sexual Orientation Straight 07/14/2024 2: 34 PM HOSPITAL SECRETARY Occupation Industry Job Start Date Job End Date Retired Not on file Not on file Not on file documented as of this encounter Plan of Treatment Upcoming Encounters Date Type Department Care Team (Late st Contact Info) Description 08/23/2024 2:40 PM CDT Office Visit [facility] Medical [facility] Multispecialty [place] [address] [facility] [address] [place] [address] Willis Gill MD [address] [facility] [address] [place] [address] 10/25/2024 11:00 AM CDT Office Visit [place] [facility] [address] [facility] [address] [place], [place] [id number] Joe Harman MD Three [facility]. [address] [place] [address] documented as of this encounter Procedures Procedure Name Priority Date/Time Associated Diagnosis Comments CBC (OUTSIDE LAB) Routine 11/28/2015 COMPREHENSIVE METABOLIC PANEL Routine 11/28/2015 THYROXINE, TOTAL Routine 11/28/2015 THYROXINE, FREE (FT4) Routine 11/28/2015 THYROID STIM HORMONE TSH Routine 11/28/2015 documented in this encounter Results * CBC (OUTSIDE LAB) (11/28/2015) WBC 3.8 HGB 13.7 HCT 40.3 PLT 161 11/28/2015 us Doc [facility] LAB-OUTSIDE/ABSTRACTED Final Result * THYROXINE, FREE (FT4) (11/28/2015) FREE T4 1.0 11/28/2015 us Doc [facility] Final Result * THYROXINE, TOTAL (11/28/2015) TOTAL T4 9.3 11/28/2015 us Doc [facility] Final Result * THYROID STIM HORMONE, TSH (11/28/2015) TSH 2.88 11/28/2015 us Doc [facility] Final Result * COMPREHENSIVE METABOLIC PANEL (11/28/2015) SODIUM S/P/B 143 POTASSIUM S/P/B 4.0 CO2 26 CHLORIDE S/P/B 107 GLUCOSE 99 CALCIUM S/P/B 9.1 BUN 12 CREATININE S/P/B 0.92 EGFR AFR. AMER. 73 EGFR NON-AFR. AMER. 63 ALKALINE PHOSPHATASE S/P/B 104 ALT 22 AST 20 BILIRUBIN TOTAL S/P/B 0.6 ALBUMIN S/P/B 3.8 3.5 - 5.0 TOTAL PROTEIN S/P/B 6.6 GLOBULIN 2.8 11/28/2015 us Doc [facility] Final Result documented in this encounter Visit Diagnoses Not on filedocumented in this encounter Additional Health Concerns Infection Onset Date Last Indicated Resolved Time COVID-19 Rule Out 07/14/2024 07/14/2024 07/14/2024 3:12 PM HOSPITAL SECRETARY Influenza - Seasonal 07/14/2024 07/14/2024 03 025 12:32 AM HOSPITAL SECRETARY documented as of this encounter Care Teams Special Education Associate Relationship Specialty Start Date End Date Dez Al MD [address] [place] [address] PCP - General FAMILY PRACTICE 12/23/15 09/01/16 Eleazar Al MD [address] [place] [address] PCP - General 09/02/16 01/04/17 Perla Luna MD [address] [place] [address] PCP - General FAMILY PRACTICE 07/22/17 01/21/21 Maria D Dawn NP [address] [facility] [address] PCP - General NURSE PRACTITIONER 01/22/21 04/02/21 Willis Gill MD [address] [facility] [address] [place] [address] PCP - General INTERNAL MEDICINE 04/03/21 Joe Harman MD Three [facility]. [address] [address] [place]i Vinyl Flooring Installer CARDIOVASCULAR DISEASE 12/23/15 documented as of this encounter
--- OUTSIDE RECORDS SUMMARY | 2024-08-18 16:26 | XMS_ITS | Encounter Summary ---
Author Organization [facility] Address [address] [place] [address] Care Team Providers Care Envelope Sealer Name Role Phone Joe Harman MD Unavailable [phone] Willis Gill MD Primary Care Provider [phone] Encounter Details Date Type Department Care Team (Latest Contact Info) Description 10/23/2021 MyChart Message Enc [facility] Medical Group Multispecialty Care - [place] [address] [address] [place] [address] [place] [address] [place] [address] [address] [place] [address] bone scan results Social History Tobacco Use Types Packs/Day Years [...] Sex Assigned at Female 07/14/2024 2:34 PM SECOND HELPER Legal Sex Female 10:30 PM CDT Gender Identity Female 09/08/2021 2:46 PM CDT Sexual Orientation Straight 07/14/2024 2: 34 PM SECOND HELPER Occupation Industry Job Start Date Job End Date Not on file Not on file Not on file Not on file COVID-19 Exposure Response Date Recorded In the last 10 days, have yo u been in contact with someone who was confirmed or suspected to have Coronavirus/COVID-19? No / Unsure 10/26/2021 8:32 AM CDT documented as of this encounter Plan of Treatment Upcoming Encounters Date Type Department Care Team (Late st Contact Info) Description 08/23/2024 2:40 PM CDT Office Visit [facility] Medical Group Multispecialty Care - [place] [address] [address] [place] [address] Willis Gill MD [facility] [address] [address] 10/25/2024 11:00 AM CDT Office Visit [place] [facility] THREE [facility] [address] [place], [place] [phone] Joe Harman MD Three [facility]. [facility] [address] [place], [place] [phone] documented as of this encounter Visit Diagnoses Not on filedocumented in this encounter Additional Health Concerns Infection Onset Date Last Indicated Resolved Time COVID-19 Rule Out 07/14/2024 07/14/2024 07/14/2024 3:12 PM SECOND HELPER Influenza - Seasonal 07/14/2024 07/14/2024 025 12:32 AM SECOND HELPER Assessment Noted Time PHQ-9 Depression Total Score: 4 08/21/19 22 9:24 AM CDT documented as of this encounter Care Teams Envelope Sealer Relationship Specialty Start Date End Date Willis Gill MD [address] [place] [address] PCP - General INTERNAL MEDICINE 04/03/21 Joe Harman MD Three [facility]. [facility] [address] [place], [place] [phone] [place] Case Worker CARDIOVASCULAR DISEASE 12/23/15 documented as of this encounter
--- OUTSIDE RECORDS SUMMARY | 2024-08-18 16:26 | XMS_ITS | Encounter Summary ---
Author Organization [facility] Address [address] [place] [address] Care Team Providers Care Flaker Operator Name Role Phone Joe Harman MD Unavailable [phone] Willis Gill MD Primary Care Provider [phone] Encounter Details Date Type Department Care Team (Late st Contact Info) Description 11/05/2022 MyChart Message Enc [address] [address] [address] [place] [address] [place] [address] [place] [address] 157 [place], [place] [id number] mammogram Social History Tobacco Use Types Packs/Day Years Used Date Smoking Tobacco: Never Smokeless Tobacco: Never Comments:counseled by Dr Leticia massey Alcohol Use Standard Drinks/Week Comments Never 0 (1 standard drink = 0.6 oz pur e alcohol) PHQ-2 Answer Date Recorded Patient Health Questionnaire-2 Score 1 09/25/2022 Comments No Sex and Gender Information Value Date Recorded Sex Assigned at Female 07/14/2024 2:34 PM BUFFING MACHINE TENDER Legal Sex Female 10:30 PM CDT Gender Identity Female 09/08/2021 2:46 PM CDT Sexual Orientation Straight 07/14/2024 2: 34 PM BUFFING MACHINE TENDER Occupation Industry Job Start Date Job End Date Not on file Not on file Not on file Not on file documented as of this encounter Plan of Treatment Upcoming Encounters Date Type Department Care Team (Late st Contact Info) Description 08/23/2024 2:40 PM CDT Office Visit [address] [place] [address] Willis Gill MD [facility] [address] 10/25/2024 11:00 AM CDT Office Visit [facility], [address] [place] [address] Joe Harman MD [facility]. [address] [place] [address] documented as of this encounter Visit Diagnoses Not on filedocumented in this encounter Additional Health Concerns Infection Onset Date Last Indicated Resolved Time COVID-19 Rule Out 07/14/2024 07/14/2024 07/14/2024 3:12 PM BUFFING MACHINE TENDER Influenza - Seasonal 07/14/2024 07/14/2024 025 12:32 AM BUFFING MACHINE TENDER Assessment Noted Time PHQ-9 Depression Total Score: 4 08/21/19 22 9:24 AM CDT documented as of this encounter Care Teams Flaker Operator Relationship Specialty Start Date End Date Willis Gill MD [address] [place] [address] PCP - General INTERNAL MEDICINE 04/03/21 Joe Harman MD [facility]. [address] [place] [address] [place] Photogrammetric Engineer CARDIOVASCULAR DISEASE 12/23/15 documented as of this encounter
--- OUTSIDE RECORDS SUMMARY | 2024-08-18 16:26 | XMS_ITS | Continuity of Care Document ---
Author Organization [facility] Address [address] [facility] [address] [place] [address] Phone Care Team Providers Care Gerentological Physiotherapist Name Role Phone Derrick PT,MPT,ATC, Jalil Unavailable Unavai lable Procedures Procedure Date Therapeutic Activities Therapeutic Exercise Neuromuscular Re-Ed Therapeutic Activities Therapeutic Exercise Neuromuscular Re-Ed Neuromuscular Re-Ed Therapeutic Activities Therapeutic Exercise Therapeutic Activities Therapeutic Exercise Therapeutic Activities Therapeutic Exercise Neuromuscular Re-Ed Doc neg elder mal no plan Doc neg elder mal no plan Therapeutic Activities PT Evaluation Moderate Complexity Therapeutic Activities Neuromuscular Re-Ed Therapeutic Exercise Therapeutic Activities Neuromuscular Re-Ed Therapeutic Exercise Therapeutic Activities Neuromuscular Re-Ed Therapeutic Exercise Therapeutic Activities Neuromuscular Re-Ed Therapeutic Exercise Neuromuscular Re-Ed Therapeutic Activities Therapeutic Exercise PT Re-evaluation Therapeutic Activities Neuromuscular Re-Ed Therapeutic Exercise Therapeutic Activities Neuromuscular Re-Ed Therapeutic Exercise Therapeutic Activities Neuromuscular Re-Ed Therapeutic Exercise Therapeutic Activities Neuromuscular Re-Ed Therapeutic Exercise Therapeutic Activities Neuromuscular Re-Ed Therapeutic Exercise Therapeutic Activities Neuromuscular Re-Ed Therapeutic Exercise Progress Note Therapeutic Exercise Neuromuscular Re-Ed Therapeutic Activities Neuromuscular Re-Ed Therapeutic Exercise Therapeutic Activities Therapeutic Activities Neuromuscular Re-Ed Manual Therapy Therapeutic Activities Neuromuscular Re-Ed Therapeutic Exercise Neuromuscular Re-Ed Therapeutic Activities Therapeutic Exercise Therapeutic Activities Neuromuscular Re-Ed Therapeutic Exercise Therapeutic Activities Neuromuscular Re-Ed Therapeutic Exercise Therapeutic Exercise Therapeutic Activities Neuromuscular Re-Ed Doc neg elder mal no plan PT Evaluation Moderate Complexity Therapeutic Activities Therapeutic Exercise Therapeutic Exercise Therapeutic Activities Neuromuscular Re-Ed Therapeutic Exercise Therapeutic Activities Neuromuscular Re-Ed Therapeutic Exercise Therapeutic Activities Neuromuscular Re-Ed Therapeutic Exercise Therapeutic Activities Neuromuscular Re-Ed Therapeutic Exercise Therapeutic Activities Neuromuscular Re-Ed Therapeutic Activities Neuromuscular Re-Ed PT Evaluation Moderate Complexity Therapeutic Exercise Therapeutic Activities Neuromuscular Re-Ed PT RE-EVALUATION THERAPEUTIC EXERCISES NEUROMUSCULAR RE-ED MANUAL THERAPY FUNC ACTIVITY HOT/COLD PACK ELECTRIC STIMULATION UNATT Carrying, Moving And Handling Objects-Cu rrent Carrying, Moving And Handling Objects-Go al Medications Name Dose Freq Route DOC Feb THERAPEUTIC EXERCISES NEUROMUSCULAR RE-ED MANUAL THERAPY FUNC ACTIVITY Medications Name Dose Freq Route DOC Feb THERAPEUTIC EXERCISES NEUROMUSCULAR RE-ED MANUAL THERAPY FUNC ACTIVITY HOT/COLD PACK ELECTRIC STIMULATION UNATT Medications Name Dose Freq Route DOC Feb THERAPEUTIC EXERCISES NEUROMUSCULAR RE-ED MANUAL THERAPY FUNC ACTIVITY HOT/COLD PACK ELECTRIC STIMULATION UNA Medications Name Dose Freq Route DOC Feb THERAPEUTIC EXERCISES NEUROMUSCULAR RE-ED MANUAL THERAPY FUNC ACTIVITY HOT/COLD PACK ELECTRIC STIMULATION UNA THERAPEUTIC EXERCISES NEUROMUSCULAR RE-ED MANUAL THERAPY FUNC ACTIVITY HOT/COLD PACK ELECTRIC STIMULATION UNA Medications Name Dose Freq Route DOC Feb THERAPEUTIC EXERCISES NEUROMUSCULAR RE-ED MANUAL THERAPY HOT/COLD PACK ELECTRIC STIMULATION UNA Medications Name Dose Freq Route DOC Jan THERAPEUTIC EXERCISES NEUROMUSCULAR RE-ED MANUAL THERAPY HOT/COLD PACK ELECTRIC STIMULATION UNATT Medications Name Dose Freq Route DOC Jan THERAPEUTIC EXERCISES MANUAL THERAPY Medications Name Dose Freq Route DOC Jan PT EVALUATION THERAPEUTIC EXERCISES HOT/COLD PACK ELECTRIC STIMULATION UNATT Carrying, Moving And Handling Objects-Cu rrent Carrying, Moving And Handling Objects-Go al Medications Name Dose Freq Route DOC Jan Pain Assess Positive DOC 2014 BMI Above/Below Normal Parameters NO F/U Plan DOC Future Fall Risk Positive 2+ Falls or 1 Fall w/ Injury RA DOC Scre ened for Fall Risk Plan of Care DOC Functional Outcome Assessmen t documented, deficits identified, treatment plan es Advance Directives Directive Yes / No Effective Date File Name No Information Encounters Encounter Description Practice Location Reason(s) For Visit Diagnoses Date Provider Providers Copied on Encounter [facility] [facility] [address], [place], [place], [id number], tel:[phone] [place] No Information 2 [facility] [place]. Referring Provider: Willis Gill [address] [facility] [address], [place], [address]. tel:[phone] [facility], [place], [place], [address], tel:[phone] [place] No Information 0 2 [facility] [place]. Referring Provider: Willis Gill, [address], [place], [address]. tel:[phone] [facility], [place], [place], [address], tel:[phone] [place] No Information 0 2 [place], [place], [place]. Referring Provider: Willis Gill [address], [place], [address]. tel:[phone] [facility], [place], [place], [address], [place] tel:[phone] [place] No Information Sep-2 2 Derrick Harrisn. , [place], [place]. Referring Provider: Willis Gill [address], [place], [address]. tel:[phone] [facility], [place], [address], [place] tel:[phone] [place] No Information Sep-2 2 Derrick Jimenes. , [place], [place]. Referring Provider: Willis Gill [address], [place], [address]. tel:[phone] [facility], [place], [address], [place] tel:[phone] [place] No Information Sep-1 2 Derrick Jimenes. , [place], [place]. Referring Provider: Willis Gill [address], [place], [address]. tel:[phone] [facility], [place], [address], [place] tel:[phone] [place] No Information Aug-0 2 Derrick Harrisn. , [place], [place]. [facility], [place], [address], [place] tel:[phone] [place] No Information Aug-0 2 Derrick Harrisn. , [place], [place]. [facility], [place], [address], [place] tel:[phone] [place] No Information Aug-0 2 Derrick Harrisn. , [place], [place]. [facility], [place], [address], [place] tel:[phone] [place] No Information 2 Meza Jalil. , [place], [place]. [facility], [place], [address], [place] tel:[phone] [place] No Information 2 Meza Jalil. , [place], [place]. [facility], [place], [address], [place] tel:[phone] [place] No Information 2 Meza Jalil. , [place], [place]. [facility], [place], [address], [place] tel:[phone] [place] No Information 2 Meza Jalil. , [place], [place]. [facility], [place], [address], [place] tel:[phone] [place] No Information 2 Meza Jalil. , [place], [place]. [facility], [place], [address], [place] tel:[phone] [place] No Information 2 Meza Jal[place]. , [place]. [facility], [place], [address], [place] tel:[phone] [place] No Information 2 Meza Jalil. , [place], [place]. [facility], [place], [address], [place] tel:[phone] [place] No Information 2 Meza Jal[place]. , [place], [place]. [facility], [place], [address], [place] tel:[phone] [place] No Information 2 Meza Jalil. , [place], [place]. [facility], [place], [address], [place] tel:[phone] [place] No Information [place]-3 0 2 Meza Jalil. , [place], [place]. [facility], [address], [place], [place], [address], tel:[phone] [place] No Information [place]-2 2 Meza Jalil. , [place], [place]. [facility], [place], [address], tel:[phone] [place] No Information [place]-2 2 Meza Jalil. , [place], [place]. [facility], [place], [address], tel:[phone] [place] No Information [place]-2 2 Meza Jalil. , [place], [place]. [facility], [place], [address], [place] tel:[phone] [place] No Information [place]-1 2 Meza Jalil. , [place], [place]. [facility], [place], [address], [place] tel:[phone] [place] No Information [place]-1 2 Meza Jalil. , [place], [place]. [facility], [place], [address], [place] tel:[phone] [place] No Information [place]-1 2 Meza Jalil. , [place], [place]. [facility], [address], [place], [address], [place] tel:[phone] [place] No Information [place]-1 0 2 Meza Jalil. , [place], [place]. [facility], [place], [address], [place] tel:[phone] [place] Low back pain Apr-2 201 9 Ralph Solano. . Referring Provider: Bob Luna [address], [place], [address]. tel:[phone] [facility], [address] [facility], [place], [address], [place] tel:[phone] [place] Low back pain Apr-2 2-201 9 Makler Luke. . Referring Provider: [address], [place], [address]. tel:[phone] [facility], [place], [address], [place] tel:[phone] [place] Low back pain Apr-1 7-201 9 Makler Luke. . Referring Provider: Bob Luna, [address], [place], [address]. tel:[phone] [place] [address], [address] [address], [place], [place], [address], [place] tel:[phone] [place] Low back pain Apr-1 5-201 9 Makler Luke. . Referring Provider: [address], [place], [address]. tel:[phone] [place] [address] [address] [address], [place], [address], [place] tel:[phone] [place] Low back pain Apr-1 0-201 9 Makler Luke. . Referring Provider: [address], [place], [address]. tel:[phone] [facility] [facility], [place], [address], [place] tel:[phone] [place] Low back pain Apr-0 8-201 9 Makler Luke. . Referring Provider: [address], [place], [address]. tel:[phone] [facility] [facility], [place], [address], [place] tel:[phone] [place] Low back pain Apr-0 3201 9 Ralph Solano. . Referring Provider: Bob Luna, [facility] [facility] [address], [place], [address]. tel:[phone] [facility], [address] [place], [place] [address], [place], [place], [address], [place] tel:[phone] [place] No Information Feb-2 1 5 Andrei Chika. [address] [facility], [address], [place], [place], [facility], [place]. tel:[phone] Referring Provider: Eleazar Jim, [address], [place], [address]. tel:[phone] [place] [address], [address] [place], [place] [address] [address], [place], [place], [address], [place] tel:[phone] [place] No Information 1 5 Andrei Chika. [address] [place] [address], [address], [place], [place], [facility], [place]. tel:[phone] Referring Provider: Eleazar Jim, [address], [place], [address]. tel:[phone], [place], [place], [address], [place] tel:[phone] [place] No Information 0 9201 5 Andrei Chika. [address] [place] [address], [address], [place], [address], [place]. tel:[phone] Referring Provider: Eleazar Jim, [address], [place], [address]. tel:[phone], [place], [place], [address], [place] tel:[phone] [place] No Information 0 7 5 Andrei Chika. [address] [place] [address], [address], [place], [address], . tel:[phone] Referring Provider: Eleazar Jim, [address], [place], [address]. tel:[phone] [place] [address], [address] [facility], [place], [address], [place] tel:[phone] [place] No Information Oct-0 5-201 5 Andrei Chika. [address] [place] [address], [address], [place], [address], [place]. tel: [phone] Referring Provider: Eleazar Jim, [address], [place], [address]. tel:[phone] [place] [address], [address] [facility], [place], [address], [place] tel:[phone] [place] Unsp rotatr-cuff tear/ruptr of left shoulder, not traumaStiffne ss of left shoulder, not elsewhere classifiedPai n in left shoulderPerso nal history of (healed) traumatic fracturePain in right wristStiffnes s of right wrist, not elsewhere classified Oct-0 2-201 5 Andrei Chika. [address] [place] [address], [address], [place], [place], [facility], [place]. tel:[phone] Referring Provider: Eleazar Jim, [address], [place], [address]. [phone] [place] [address], [address] [facility] [address] [place] [address], [id number], [place] tel:[phone] [place] No Information Sep-3 0-201 5 Andrei Chika. [address] [place] [address], [address], [place], [place], [facility], [place]. tel:[phone] Referring Provider: Eleazar Jim, [address], [place], [address]. tel:[phone] [place] [address], [address] [facility] [address], [address], [place] tel:[phone] [place] No Information Sep-2 8-201 5 Andrei Chika. [address] [place] [address], [address], [place], [address], [place]. tel:[phone] Referring Provider: Eleazar Jim, [address], [place], [address]. tel:[phone] [facility] [address] [place], [place] [address], [place], [place], [address], [place] tel:[phone] [place] No Information Sep-2 5 Andrei Chika. [address] [facility], [address], [place], [facility], . tel:[phone] Referring Provider: Dewey [place] [place], [address]. tel:[phone] [facility] [address] [place] [address] [address], [place], [address], [place] tel:[phone] [place] Pain in joint involving handPain in joint involving shoulder region Sep- Andrei Mccartneyie. [address] [facility], [address], [place], [address], . tel:[phone] Referring Provider: [place], [address]. tel:[phone] Family History Family Member Type Diagnosis Age At Onset No Information Payers Payer name Insurance type Covered green party ID Authorjovannya tipurvi(s) Medicare [place] [id number] [facility] [id number] Social History Type Description Quantity Date Captured Comments Sex Female Smoking Status No Information Chief Complaint And Reason For Visit No Information Reason For Referral Reason For Referral No Information History Of Present Illness Encounter Date Complaint History Of Prese nt Illness No Information Functional Status Date Functional Assessmen t No Information Instructions Date Instruction Additional Infor mation Giving encouragement to exercise Related to Overweight Giving encouragement to exercise Related to Overweight Giving encouragement to exercise Related to Overweight Giving encouragement to exercise Related to Overweight Giving encouragement to exercise Related to Overweight Giving encouragement to exercise Related to Overweight Assessments Type Assessment Date No Information Patient Care Teams Name Effective Dates (start - stop) Status Members No Information
--- OUTSIDE RECORDS SUMMARY | 2024-08-18 16:26 | XMS_ITS | Continuity of Care Document ---
Author Organization [facility] Address [address] [place] [address] Phone Care Team Providers Care Barrel Dedenting Machine Operator Name Role Phone Kaushik Ricardo Unavailable Unavailable Advance Directives Directive Yes / No Effective Date File Name No Information Encounters Encounter Description Practice Location Reason(s) For Visit Diagnoses Date Provider Providers Copied on [facility] [address] [place] [address] [address], [place], [place], [address], [place] tel:[phone] [facility] No Information Haleigh Faulkner. [address] [place], [address], [place]. tel:[phone] Family History Family Member Type Diagnosis Age At Onset No Information Payers Payer name Insurance type Covered libertarian ID Authoriza tipurvi(s) [employer] SOI CI [id number] Social History Type Description Quantity Date Captured Comments Sex Female Smoking Status No Information Chief Complaint And Reason For Visit No Information Reason For Referral Reason For Referral No Information History Of Present Illness Encounter Date Complaint History Of Prese nt Illness No Information Functional Status Date Functional Assessmen t No Information Instructions Date Instruction Additional Infor mation No Information Assessments Type Assessment Date No Information Patient Care Teams Name Effective Dates (start - stop) Status Members No Information
--- OUTSIDE RECORDS SUMMARY | 2024-08-18 16:26 | XMS_ITS | Encounter Summary ---
Author Organization [facility] Address [facility] [place] [address] Care Team Providers Care Food Operations Manager Name Role Phone Dez Al MD Primary Care Provider [phone] Joe Harman MD Unavailable [phone] Eleazar Al MD Primary Care Provider [phone] Eleazar Al MD Primary Care Provider [phone] Eleazar Al MD Primary Care Provider [phone] Perla Luna MD Primary Care Provider Maria D Dawn NP Primary Care Provider Willis Almonte MD Primary Care Provider [phone] Encounter Details Date Type Department Care Team (Late st Contact Info) Description 06/26/2015 Abstract [facility] AT [address] [address] Joe Harman MD [address] [address] Social History Tobacco Use Types Packs/Day Years Used Date Smoking Tobacco: Never Alcohol Use Standard Drinks/Week Comments No 0 (1 standard drink = 0.6 oz pur e alcohol) Comments Unknown Sex and Gender Information Value Date Recorded Sex Assigned at Female 07/14/2024 2:34 PM SUPERVISOR ASSEMBLING Legal Sex Female 10:30 PM CDT Gender Identity Female 09/08/2021 2:46 PM CDT Sexual Orientation Straight 07/14/2024 2: 34 PM SUPERVISOR ASSEMBLING documented as of this encounter Plan of Treatment Upcoming Encounters Date Type Department Care Team (Late st Contact Info) Description 08/23/2024 2:40 PM CDT Office Visit [facility] [place] [address] [facility] [address] [place] [address] Willis Gill MD [address] [facility] [address] [place] [address] 10/25/2024 11:00 AM CDT Office Visit [facility] [facility] THREE [facility], [facility] [address] [place], [place] [id number] Joe Harman MD Three [facility]. [facility] [address] [place], [place] [id number] documented as of this encounter Visit Diagnoses Not on filedocumented in this encounter Additional Health Concerns Infection Onset Date Last Indicated Resolved Time COVID-19 Rule Out 07/14/2024 07/14/2024 07/14/2024 3:12 PM SUPERVISOR ASSEMBLING Influenza - Seasonal 07/14/2024 07/14/2024 025 12:32 AM SUPERVISOR ASSEMBLING documented as of this encounter Care Teams Food Operations Manager Relationship Specialty Start Date End Date Dez Al MD [address] [place] [address] PCP - General FAMILY PRACTICE 12/23/15 09/01/16 Eleazar Al MD [address] [place] [address] PCP - General 09/02/16 01/04/17 Eleazar Al MD [address] [place] [address] PCP - General 07/03/15 12/22/15 Eleazar Al MD [address] [place] [place] [address] PCP - General 05/08/13 07/02/15 Perla Luna MD [address] [place] [address] PCP - General FAMILY PRACTICE 07/22/17 01/21/21 Maria D Dawn, BLOCK SAW OPERATOR [address] [place] [address] PCP - General NURSE PRACTITIONER 01/22/21 04/02/21 Willis Gill MD [address] [facility] [address] [place] [address] PCP - General INTERNAL MEDICINE 04/03/21 Joe Harman MD Three [facility]. [address] [place] [address] [place] Survey Operations Director CARDIOVASCULAR DISEASE 12/23/15 documented as of this encounter
--- OUTSIDE RECORDS SUMMARY | 2024-08-18 16:26 | XMS_ITS | Encounter Summary ---
Author Organization [facility] Address [address] [place] [address] Care Team Providers Care Sandwich Artist Name Role Phone Joe Harman MD Unavailable [phone] Willis Gill MD Primary Care Provider [phone] Encounter Details Date Type Department Care Team (Late Contact Info) Description 12/01/2023 [employer] Message Enc [facility] [address] [address] [address] [place] [address] Arielle, [facility] Provider Lab Results Social History Tobacco Use Types Packs/Day Years Used Date Smoking Tobacco: Never Smokeless Tobacco: Never Comments:counseled by Dr Leticia massey Alcohol Use Standard Drinks/Week Comments Never 0 (1 standard drink = 0.6 oz pur e alcohol) PHQ-2 Answer Date Recorded Patient Health Questionnaire-2 Score 1 03/12/2023 Comments No Sex and Gender Information Value Date Recorded Sex Assigned at Female 07/14/2024 2:34 PM PROMOTIONAL MARKETING AGENT Legal Sex Female 10:30 PM CDT Gender Identity Female 09/08/2021 2:46 PM CDT Sexual Orientation Straight 07/14/2024 2: 34 PM PROMOTIONAL MARKETING AGENT Occupation Industry Job Start Date Job End Date Not on file Not on file Not on file Not on file documented as of this encounter Plan of Treatment Upcoming Encounters Date Type Department Care Team (Late Contact Info) Description 08/23/2024 2:40 PM CDT Office Visit [facility] [address] [address] [address] [place] [address] Willis Gill MD [facility] [address] [place] [address] 10/25/2024 11:00 AM CDT Office Visit [facility] THREE [facility], [facility] [address] [place] [address] Joe Harman MD Three [facility]. [facility] [address] [place] [address] documented as of this encounter Visit Diagnoses Not on filedocumented in this encounter Additional Health Concerns Infection Onset Date Last Indicated Resolved Time COVID-19 Rule Out 07/14/2024 07/14/2024 07/14/2024 3:12 PM PROMOTIONAL MARKETING AGENT Influenza - Seasonal 07/14/2024 07/14/2024 025 12:32 AM PROMOTIONAL MARKETING AGENT Assessment Noted Time PHQ-9 Depression Total Score: 2 03/12/20 23 10:33 AM CDT documented as of this encounter Care Teams Sandwich Artist Relationship Specialty Start Date End Date Willis Gill MD [address] [facility] [address] [place] [address] PCP - General INTERNAL MEDICINE 04/03/21 Joe Harman MD Three [facility]. [facility] [address] [place] [address] Warren Pillow Filler CARDIOVASCULAR DISEASE 12/23/15 documented as of this encounter
--- OUTSIDE RECORDS SUMMARY | 2024-08-18 16:26 | XMS_ITS | Encounter Summary ---
Author Organization [facility] Address [address] [place] [address] Care Team Providers Care Blog Writer Name Role Phone Dez Al MD Primary Care Provider [phone] Joe Harman MD Unavailable [phone] Eleazar Al MD Primary Care Provider [phone] Perla Luna MD Primary Care Provider Maria D Dawn NP Primary Care Provider Willis Almonte MD Primary Care Provider [phone] Encounter Details Date Type Department Care Team (Late st Contact Info) Description 07/02/2016 Abstract [facility] AT [address] [address] Tex Patel MA Social History Tobacco Use Types Packs/Day Years Used Date Smoking Tobacco: Never Smokeless Tobacco: Never Alcohol Use Standard Drinks/Week Comments No 0 (1 standard drink = 0.6 oz pur e alcohol) Comments Unknown Sex and Gender Information Value Date Recorded Sex Assigned at Female 07/14/2024 2:34 PM VALIDATION LEADER Legal Sex Female 10:30 PM CDT Gender Identity Female 09/08/2021 2:46 PM CDT Sexual Orientation Straight 07/14/2024 2: 34 PM VALIDATION LEADER Occupation Industry Job Start Date Job End Date Not on file Not on file Not on file Not on file documented as of this encounter Progress Notes * AJDE Valenzuela-KENYON - 02/04/2017 2:29 PM CDT PG pt send letter continue current meds documented in this encounter Plan of Treatment Upcoming Encounters Date Type Department Care Team (Late st Contact Info) Description 08/23/2024 2:40 PM CDT Office Visit [facility] [place] [address] [address] [address] [place] [address] Willis Gill MD [address] [facility] [address] [place] [address] 10/25/2024 11:00 AM CDT Office Visit [facility], [facility] [address] [place], [place] [address] Joe Harman MD Three [facility]. [facility] [address] [place], [place] [id number] documented as of this encounter Procedures Procedure Name Priority Date/Time Associated Diagnosis Comments BASIC METABOLIC PANEL Routine 01/13/2017 LIPID PANEL Routine 01/13/2017 VITAMIN D, 25 OH Routine 01/13/2017 LIPID PANEL Routine 07/01/2016 documented in this encounter Results * VITAMIN D, 25 OH (01/13/2017) VITAMIN D 25 HYDROXY S/P/B 24 01/13/2017 [facility] Final Result * (ABNORMAL) BASIC METABOLIC PANEL (01/13/2017) SODIUM S/P/B 143 BUN 10 CREATININE S/P/B 0.69 0.5 - 1.0 EGFR AFR. AMER. 101(A) <=90 01/13/2017 us [facility] Final Result * LIPID PANEL (01/13/2017) CHOLESTEROL 170 HDL 60 TRIGLYCERIDES 111 NON HDL CHOLESTEROL 110 LDL (CALCULATED) 89 01/13/2017 us [facility] Edited Resul t - Final * LIPID PANEL (07/01/2016) CHOLESTEROL 177 HDL 61 TRIGLYCERIDES 78 NON HDL CHOLESTEROL 116 LDL (CALCULATED) 100 07/01/2016 us Doc [facility] Final Result documented in this encounter Visit Diagnoses Not on filedocumented in this encounter Additional Health Concerns Infection Onset Date Last Indicated Resolved Time COVID-19 Rule Out 07/14/2024 07/14/2024 07/14/2024 3:12 PM VALIDATION LEADER Influenza - Seasonal 07/14/2024 07/14/2024 025 12:32 AM VALIDATION LEADER documented as of this encounter Care Teams Blog Writer Relationship Specialty Start Date End Date Dez Al MD [address] [place] [address] PCP - General FAMILY PRACTICE 12/23/15 09/01/16 Eleazar Al MD [address] [place] [address] PCP - General 09/02/16 01/04/17 Perla Luna MD [address] [place] [address] PCP - General FAMILY PRACTICE 07/22/17 01/21/21 Maria D Dawn NP [address] [place] [address] PCP - General NURSE PRACTITIONER 01/22/21 04/02/21 Willis Gill MD [address] [facility] [address] [place] [address] PCP - General INTERNAL MEDICINE 04/03/21 Joe Harman MD Three [facility]. [address] [address] [place] Professional Digital Marketing CARDIOVASCULAR DISEASE 12/23/15 documented as of this encounter
--- OUTSIDE RECORDS SUMMARY | 2024-08-18 16:27 | XMS_ITS | Clinical Summary ---
Author Organization [facility] Care Team Providers Care Vaccine Customer Representative Name Role Phone Unavailable Primary Care Provider Unavailabl e Social History Tobacco Use Types Packs/Day Years Used Date Smoking Tobacco: Never Assessed Comments Unknown Sex and Gender Information Value Date Recorded Sex Assigned at Not on file Legal Sex Female 2:44 PM ACCOUNT LIAISON Gender Identity Not on file Sexual Orientation Not on file Plan of Treatment Health Maintenance Due Date Last Done Comments DEXA Bone Density 1945 Hepatitis C Virus (HCV) Screening 1945 TdaP Immunization 1945 Pneumococcal Immunization (50+ years) (1 of 1 - PCV) 1994 Zoster Immunization (1 of 2) 1994 Respiratory Syncytial Virus (RSV) Immunization (Adult) (1 - 1-dose 75+ series) 10/16/2019 Influenza Immunization (#1) 01/23/202402/21, 03/23/2018, 03/09/2017, Additional history exists SARS-COV-2 Immunization ( season) 2024 Hepatitis B Immunization Aged Out No longer eligible based on patient's age to complete this topic Meningococcal Immunization (ACWY) Aged Out No longer eligible based on patient's age to complete this topic Rotavirus Immunization Aged Out No lo nger eligible based on patient's age to complete this topic
--- OUTSIDE RECORDS SUMMARY | 2024-08-18 16:27 | XMS_ITS | Clinical Summary ---
Author Organization [facility] [address] Address [address] [place] [id number] Care Team Providers Care Program Scheduler Name Role Phone Willis Gill MD Primary Care Provider [phone] Allergies Active Allergy Reactions Criticality Noted Date Comments Hydrocodone-Acetaminophen Hallucinations Medium 2021 Medications predniSONE (DELTASONE) 10 mg tablet pack prednisone 10 mg tablets in a dose pack Take 1 tab by mouth, 3 times a day for 3 daysTake 1 tab by mouth 2 times a day for 2 daysTake 1 tab by mouth once a day for 1 day Active alendronate (FOSAMAX) 70 mg tablet Take 1 tablet (70 mg total) by mouth once a week 2 Active losartan (COZAAR) 25 mg tablet Take 1 tablet (25 mg total) by mouth daily 3 Active rosuvastatin (CRESTOR) 5 mg tablet Take 1 tablet (5 mg total) by mouth daily 3 Active sertraline (ZOLOFT) 25 mg tablet TAKE 0.5 TABLETS (12.5 MG TOTAL) BY MOUTH NIGHTLY AT BEDTIME. 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 01/09/2022 Osteoporosis 11/03/2021 Nonrheumatic tricuspid valve regurgitation 05/21 Primary osteoarthritis of both knees 05/21/2021 Partial thickness rotator cuff tear 05/09/2019 Radial tunnel syndrome 05/09/2019 Nonrheumatic aortic valve insufficiency 01/01/20 16 TIA (transient ischemic attack) 01/01/2016 Carpal tunnel syndrome 04/17/2015 Closed fracture of radius and ulna 04/17/2015 Surgical History Surgery Date Site/Laterality Comments CATARACT EXTRACTION Bilateral RETINA SURGERY N/A torn retina ( years ago ) left eye KNEE SURGERY N/A BREAST BIOPSY Bilateral Medical History Medical History Date Comments Hx Other Medical Gall bladder Hx Other Medical Breast Blop Hypertension Hypertension Family History Medical History Relation Name Comments Heart disease Father Family history of cardiac disorder - (Added by TW Conv) Cancer Mother Family history of malignant neoplasm - (Added by TW Conv) Heart disease Mother Family history of cardiac disorder - (Added by TW Conv) Stroke Mother Family history of cerebrovascular accident (CVA) - (Added by TW Conv) Cancer Other Family history of Cancer, unknown; Heart disease Other Family history of Heart problems; Relation Name Status Comments Father Mother Other Social History Tobacco Use Types Packs/Day Years Used Date Smoking Tobacco: Never Assessed Tobacco Cessation:Counseling Given: Not Answered Comments Unknown Sex and Gender Information Value Date Recorded Sex Assigned at Not on file Legal Sex Female 8:09 PM SHAREPOINT WEB DEVELOPER Gender Identity Not on file Sexual Orientation Not on file Obstetrics History Last Filed Vital Signs Vital Sign Reading Time Taken Comments Blood Pressure 138/80 12/13/2023 10:46 AM CDT Pulse 84 12/13/2023 10:46 AM CDT Temperature 37 C (98.6 F) 12/13/2023 10:46 AM CDT Respiratory Rate 20 12/13/2023 10:46 AM CDT Oxygen Saturation 94% 12/13/2023 10:46 AM CDT Inhaled Oxygen Concentration - - Weight 77.7 kg (171 lb 4.8 oz) 12/13/2023 10:46 AM CDT Height 160 cm (5' 3 ) 12/13/2023 10:46 AM CDT Body Mass Index 30.34 12/13/2023 10:46 AM CDT Plan of Treatment Health Maintenance Due Date Last Done Comments Depression Screening 1944 Fall Risk Assessment 1944 Hepatitis C Screening 1944 DTaP/Tdap/Td Vaccine (1 - Tdap) 10/16/1955 Hepatitis B Screening 1962 Zoster Vaccine (1 of 2) 1994 Well Visit 65+ 2009 Osteoporosis Screening-Bone Density Scan 10/17/2023 10/16/2021 Covid-19 Vaccine (4 - 2023-2 5 season) 2024 03/14/2021, 08/12/2020, 07/11/2020 Influenza Vaccine (#1) 2024 , 03/09/2020, 03/23/2018, Additional history exists Pneumococcal vaccine 65+ Completed 09/25/2022, 07/24 Insurance MEDICARE MEDICARE [facility] MEDICARE [facility] Care Teams Program Scheduler Relationship Specialty Start Date End Date Willis Gill MD [address] [place] [address] PCP - General Internal Medicine 04/13/23
--- OUTSIDE RECORDS SUMMARY | 2024-08-18 16:27 | XMS_ITS ---
Author Name Claudia Sotoyaya Rajput Address [address] [facility] [address] [place] [address] Phone [phone] Organization [facility] Address [address] [place] [address] Phone [phone] Care Team Providers Care Drum Sander Offbearer Name Role Phone Micah Soto Unavailable Willis Gill Unavailable [phone] Joe Harman Unavailable [phone] Functional Status No Results Mental Status No Results Allergies and Intolerances No Known Allergies Encounters Program Name Primary Diagnosis Admission Date/Time Dis charge Date/Time null WedApr 30 06:00 :00 EST [facility] Wed[facility] 05 20:00:00 EDT 2023May 12 17:00:00 EST 2023 Problems Active Concerns * Pain in right shoulder* Code: * Start Date: WedOctober 06 00:00:00 EDT 2023 * End Date: * Text: * Weakness* Code: * Start Date: WedOctober 06 00:00:00 EDT 2023 * End Date: * Text: * Pain in left shoulder* Code: * Start Date: WedOctober 06 00:00:00 EDT 2023 * End Date: * Text: Resolved Concerns * Problem Lateral epicondylitis, unspecified elbow* Code: * Start Date: WedOctober 06 00:00:00 EDT 2023 * End Date: WedMar 05 00:00:00 EDT 2023 Reason for Referral
--- OUTSIDE RECORDS SUMMARY | 2024-08-18 16:27 | XMS_ITS | Referral Summary ---
Author Organization [facility] [address] Address [address] [place] [address] Care Team Providers Care Crater And Packer Name Role Phone Willis Gill MD Primary Care Provider [phone] Allergies Active Allergy Reactions Criticality Noted Date [...] Closed fracture of radius and ulna 04/17/2015 Social History Tobacco Use Types Packs/Day Years Used Date Smoking Tobacco: Never Assessed Tobacco Cessation:Counseling Given: Not Answered Comments Unknown Sex and Gender Information Value Date Recorded Sex Assigned at Not on file Legal Sex Female 8:09 PM ORDER ENTRY Gender Identity Not on file Sexual Orientation Not on file Last Filed Vital Signs [...] 12/13/2023 10:46 AM CDT Plan of Treatment Not on file Insurance MEDICARE MEDICARE [facility] MEDICARE [facility] Care Teams Crater And Packer Relationship Specialty Start Date End Date Willis Gill MD [address] [place] [address] PCP - General Internal Medicine 04/13/23
[2024-08-18 16:29] VITALS: BP 125/65; PULSE 97; RESP 18; TEMP 36.6; O2SAT 96
--- NOTE | 2024-08-18 17:02 | ED_ITS ---
HPI - Fall General Chief Complaint: Fall <JOHN Batista Last Filed: 08/18/24 17:38> Stated Complaint: upper ext <JOHN Batista Last Filed: 08/18/24 17:38> Time Seen by Provider: 08/18/24 17:08 <Kisha Amin PA-C - Last Filed: 08/18/24 17:38> Focused HPI: Patient is a 78-year-old female who presents the ED status post mechanical fall. Patient reports she was walking outside and tripped over the curb, causing her to fall. Patient attempted to catch herself with her right arm. Complains of pain to her right wrist, right elbow, right chest wall -worse with deep breathing. Sustained small abrasions to R hand/elbow. Tetanus is unknown. Did sustain some superficial abrasions to her right knee, but denies pain. Has been ambulatory since the fall without issue. Drove herself to the ED. Denies head injury or LOC. Denies neck or back pain. Denies SOB. Patient notes she has previously fractured R wrist. GENERAL: Well-appearing, well-nourished, and in no acute distress. HEAD: Normocephalic, atraumatic. CHEST: Clear to auscultation. ?No respiratory distress. Lung sounds are equal bilaterally. HEART: Regular rate and rhythm.? MSK: TTP throughout R lateral distal radius/ulnar region, some tenderness in snuffbox. Swelling present. Mild deformity, though patient has had previous wrist fracture. Abrasion over distal ulna w/o active bleeding. Abrasion to R olecranon, mild focal TTP, no significant swelling. Small abrasion over right anterior knee, no tenderness. Mild tenderness to palpation over right inferior anterior chest wall/right breast. No appreciable ecchymosis. Radial pulses are intact. NEURO: ?Alert and oriented x3. Patient screened in triage and initial orders placed.? ?Additional care and disposition to be based upon?diagnostic testing and treatment. <JOHN Batista Last Filed: 08/18/24 17:38> Source: patient <JOHN Batista Last Filed: 08/18/24 17:38> Mode of arrival: ambulatory <JOHN Batista Last Filed: 08/18/24 17:38> Limitations: no limitations <JOHN Batista Last Filed: 08/18/24 17:38> Related Data Home Medications: Home Medications ?Medication ?Instructions ?Recorded ?Confirmed ?Last Taken ?Type aspirin 81 mg tablet,delayed 81 mg PO DAILY 05/02/19 06/27/24 Unknown History release (Aspir-) losartan 25 mg tablet 25 mg PO DAILY 05/02/19 06/27/24 Unknown History <JOHN Batista Last Filed: 08/18/24 17:38> Allergies/Adverse Reactions: Allergies Allergy/AdvReac Type Severity Reaction Status Date / Time No Known Allergies Allergy Unverified 08/18/24 16:25 <JOHN Batista Last Filed: 08/18/24 17:38> COUNT INCLUDES THE [facility] Past Medical History Medical History: Medical History Tendinitis of both rotator cuffs Impingement syndrome, shoulder, left Cervical spondylosis with radiculopathy Impingement syndrome of shoulder Left shoulder pain Right shoulder pain Lateral epicondylitis Torn meniscus On fpc drug therapy Essential (primary) hypertension Osteoporosis without current pathological fracture GERD without esophagitis Nonrheumatic aortic (valve) insufficiency Vitamin D deficiency Chest skin lesion Chronic low back pain without sciatica Fibroadenoma of breast Hx-TIA (transient ischemic attack) <JOHN Batista Last Filed: 08/18/24 17:38> Surgical History Surgical History: Surgical History History of breast biopsy normal History of cholecystectomy Hx of tonsillectomy age 20 <JOHN Batista Last Filed: 08/18/24 17:38> Family History Family History: Family History Other Family history of coronary artery disease <JOHN Batista Last Filed: 08/18/24 17:38> Social History Social History: Social History Smoking status: Never smoker Second hand tobacco smoke exposure: No Alcohol intake: current Substance use: never Substance use type: does not use <Kisha Amin PA-C - Last Filed: 08/18/24 17:38> Exam Narrative: APPEARANCE: No apparent distress. Head: atraumatic. EYES: EOMI, NOSE: Atraumatic NECK: Trachea midline RESPIRATORY: No increased rate of breathing clear to auscultation CARDIOVASCULAR: RRR, no peripheral edema ABDOMINAL: Non-distended MUSCULOSKELETAl: Focal exam of right wrist shows deformity. There is a superficial skin tear but it is not an open fracture. Cap refills strong hand. Flocculator Operator strength intact. Some pain on active and passive range of motion of the elbow. Tenderness to palpation over the right ribcage NEURO: Alert. Moving 4/4 extremities SKIN:: Warm, dry. Normal color PSYCHIATRIC: Normal affect <Dez Chairez MD - Last Filed: 08/18/24 20:29> Course Vital Signs Vital signs: Vital Signs Temperature 97.9 F 08/18/24 16:29 Pulse Rate 97 08/18/24 16:29 Respiratory Rate 18 08/18/24 16:29 Blood Pressure 125/65 08/18/24 16:29 Pulse Oximetry 96 08/18/24 16:29 Oxygen Delivery Room Air 08/18/24 16:29 Temperature 97.9 F 08/18/24 16:29 Pulse Rate 89 08/18/24 19:37 Respiratory Rate 19 08/18/24 19:37 Blood Pressure 159/81 H 08/18/24 19:37 Pulse Oximetry 99 08/18/24 19:37 Oxygen Delivery Room Air 08/18/24 16:29 <Kisha Amin PA-C - Last Filed: 08/18/24 17:38> Vital Signs Temperature 97.9 F 08/18/24 16:29 Pulse Rate 97 08/18/24 16:29 Respiratory Rate 18 08/18/24 16:29 Blood Pressure 125/65 08/18/24 16:29 Pulse Oximetry 96 08/18/24 16:29 Oxygen Delivery Room Air 08/18/24 16:29 Temperature 97.9 F 08/18/24 16:29 Pulse Rate 89 08/18/24 19:37 Respiratory Rate 19 08/18/24 19:37 Blood Pressure 159/81 H 08/18/24 19:37 Pulse Oximetry 99 08/18/24 19:37 Oxygen Delivery Room Air 08/18/24 16:29 <Dez Chairez MD - Last Filed: 08/18/24 20:29> Procedures Orthopedic Splinting/Casting Injury #1: Splinting/Casting Date: 08/18/24 <Dez Chairez MD - Last Filed: 08/18/24 20:29> Side: right <Dez Chairez MD - Last Filed: 08/18/24 20:29> Upper Extremity Injury Location: wrist <Dez Chairez MD - Last Filed: 08/18/24 20:29> Upper Extremity Immobilizer: volar splint <Dez Chairez MD - Last Filed: 08/18/24 20:29> Splint: customized in ED <Dez Chairez MD - Last Filed: 08/18/24 20:29> Pre-Procedure Neuro Vascular Exam: normal <Dez Chairez MD - Last Filed: 08/18/24 20:29> Post-Procedure Neuro Vascular Exam: normal <Dez Chairez MD - Last Filed: 08/18/24 20:29> MDM - Fall MDM Narrative Medical decision making narrative: MSE by JOSE ALEJANDRO in triage. <Kisha Amin PA-C - Last Filed: 08/18/24 17:38> MSE by JOSE ALEJANDRO in triage. -Course: 78-year-old female presenting after a ground level fall. CT of the chest ordered to evaluate for fractures ribs and there were no definitive fractures visualized. Patient will be treated as a rib contusion with incentive spirometer/pain control. Patient has a fracture the distal radius. Hematoma was performed and I attempted to reduce the wrist but was unsuccessful. She was placed in a splint She elbow x-ray showed a small avulsion fracture the lateral epicondyle. She will be placed in a sling. Patient will follow-up with Dr. Banerjee. -DDX includes but is not limited to: Wrist sprain, wrist fracture, bruised ribs, fractured ribs <Dez Chairez MD - Last Filed: 08/18/24 20:29> Discharge Plan Discharge Clinical Impression: Fracture of wrist, Displaced avulsion fracture of lateral epicondyle of right humerus <Kisha Amin PA-C - Last Filed: 08/18/24 17:38> Patient Disposition: Home, Self-Care <JOHN Batista Last Filed: 08/18/24 17:38> Condition: Stable <JOHN Batista Last Filed: 08/18/24 17:38> Instructions: Antibiotic Form, Elbow Fracture (DC), Wrist Fracture in Adults (ED), Rib Contusion (ED) <Kisha Amin PA-C - Last Filed: 08/18/24 17:38> Additional Instructions: He was seen emergency department after ground level fall. You have a fracture of your wrist and a small avulsion fracture in her elbow. Please call Dr. Banerjee's clinic and schedule appointment as soon as possible. You also have bruises your ribs. Please use incentive spirometer 10 times per hour while awake. Use Motrin and Tylenol for pain oxycodone for breakthrough pain. Use the lidocaine patches as instructed. You develop signs of pneumonia such as fevers, shortness breath, or chest pain please return to the ED re- evaluation. <Kisha Amin PA-C - Last Filed: 08/18/24 17:38> Patient Language: Wallisian <JOHN Batista Last Filed: 08/18/24 17:38> Prescriptions: New ibuprofen 800 mg tablet 800 mg PO TID PRN (Reason: pain) 7 Days Qty: 21 0RF acetaminophen 500 mg tablet 1,000 mg PO TID PRN (Reason: luz) 7 Days Qty: 42 0RF oxycodone 5 mg tablet 5 mg PO Q4H PRN (Reason: pain) Qty: 14 0RF lidocaine 5 % adhesive patch,medicated 1 patch topical DAILY Qty: 4 0RF Rx Instructions: leave on most painful area for up to 12 hrs No Action losartan 25 mg tablet 25 mg PO DAILY aspirin [Aspir-81] 81 mg tablet,delayed release (DR/EC) 81 mg PO DAILY <Kisha Amin PA-C - Last Filed: 08/18/24 17:38> Follow-up/Referrals: Micah Soto MD [Physician] - 2 Days Naate,MD Willis [Primary Care Provider] - <Kisha Amin PA-C - Last Filed: 08/18/24 17:38>
[2024-08-18] MEDS: ACETAMINOPHEN 500 MG TABLET 1000 MG PO (19:26)
[2024-08-18] MEDS: IBUPROFEN 600 MG TABLET PO (19:27)
[2024-08-18 19:37] VITALS: BP 159/81; PULSE 89; RESP 19; O2SAT 99
[2024-08-18] MEDS: TETANUS,DIPHTHERIA,AC PERTUSSIS ADULT (0.5 ML) BOOSTRIX IM (19:47)
--- OUTSIDE RECORDS SUMMARY | 2024-08-18 20:07 | XMS_ITS | Encounter Summary ---
Author Organization [facility] Address [address] [place] [address] Care Team Providers Care Public Records Officer Name Role Phone Joe Harman MD Unavailable [phone] Perla Luna MD Primary Care Provider Maria D Dawn NP Primary Care Provider Willis Almonte MD Primary Care Provider [phone] Encounter Details Date Type Department Care Team (Late st Contact Info) Description 09/21/2017 [facility] at [address] [address] Tex Patel [place] Social History Tobacco Use Types Packs/Day Years Used Date Smoking Tobacco: Never Smokeless Tobacco: Never Alcohol Use Standard Drinks/Week Comments No 0 (1 standard drink = 0.6 oz pur e alcohol) Comments Unknown Sex and Gender Information Value Date Recorded Sex Assigned at Female 07/14/2024 2:34 PM HOT DOG VENDER Legal Sex Female 10:30 PM CDT Gender Identity Female 09/08/2021 2:46 PM CDT Sexual Orientation Straight 07/14/2024 2: 34 PM HOT DOG VENDER Occupation Industry Job Start Date Job End [...] Office Visit [facility] Medical Group Multispecialty Care - [place] [address] [facility] [address] [place] [address] Willis Gill MD [address] [facility] [address] [place] [address] 10/25/2024 11:00 AM CDT Office Visit [facility] THREE [facility] [address] [place], [place] [address] Joe Harman MD Three [facility]. [address] [place], [place] [id number] documented as of this encounter Procedures Procedure [...] CHOLESTEROL 114 LDL (CALCULATED) 99 07/25/2020 us [facility] LABORATORY Edited Resul t - Final * CBC (OUTSIDE LAB) (12/26/2019) Pathologist [facility] WBC 3.8 HGB 14.7 HCT 43.3 PLT 139 12/26/2019 [facility] Abstract LAB-OUTSIDE/ABSTRACTED Final Result * COMPREHENSIVE METABOLIC PANEL (12/26/2019) Pathologist [facility] SODIUM S/P/B 142 POTASSIUM S/P/B 3.8 CO2 [...] Final Result * LIPID PANEL (08/17/2018) Pathologist [facility] CHOLESTEROL 177 HDL 64 TRIGLYCERIDES 89 NON HDL CHOLESTEROL 113 LDL (CALCULATED) 95 08/17/2018 us Doc [facility] Abstract LABORATORY Edited Resul t - Final * VITAMIN D, 25 OH (08/17/2018) Pathologist [facility] VITAMIN D 25 HYDROXY S/P/B 30 08/17/2018 us Doc [facility] LABORATORY Final Result * CBC (OUTSIDE LAB) (08/17/2018) [facility] WBC 2.9 HGB 13.1 HCT 38.1 PLT 147 08/17/2018 us Doc [facility] Abstract LAB-OUTSIDE/ABSTRACTED Final Result * THYROID STIM HORMONE, TSH (08/17/2018) Pathologist [facility] TSH 2.38 08/17/2018 us Doc [facility] Abstract LABORATORY Final Result * COMPREHENSIVE METABOLIC PANEL (08/17/2018) Pathologist [facility] SODIUM S/P/B 141 POTASSIUM S/P/B 4.4 CO2 [...] Rule Out 07/14/2024 07/14/2024 07/14/2024 3:12 PM HOT DOG VENDER Influenza - Seasonal 07/14/2024 07/14/2024 025 12:32 AM HOT DOG VENDER documented as of this encounter Care Teams Public Records Officer Relationship Specialty Start Date End Date Perla Luna MD Three [facility]. [address] [address] PCP - General FAMILY PRACTICE 07/22/17 01/21/21 Maria D Dawn, CONTROL ROOM OPERATOR Three [facility]. [address] [address] PCP - General NURSE PRACTITIONER 01/22/21 04/02/21 Willis Gill MD [address] [facility] [address] [place] [address] PCP - General INTERNAL MEDICINE 04/03/21 Joe Harman MD Three [facility]. [address] [address] Poli Assistant Men'S Soccer Coach CARDIOVASCULAR DISEASE 12/23/15 documented as of this encounter
--- OUTSIDE RECORDS SUMMARY | 2024-08-18 20:07 | XMS_ITS | Encounter Summary ---
Author Organization [facility] Address [address] [place] [address] Care Team Providers Care Bleacher [employer] Name Role Phone Joe Harman MD Unavailable [phone] Willis Gill MD Primary Care Provider [phone] Encounter Details Date Type Department Care Team (Latest Contact Info) Description 10/23/[address] [facility] Medical Group Multispecialty Care - [place] [address] [address] [place] [address] [place] [address] [place] [address] 157 [place] [address] bone scan results Social History [...] Sex Assigned at Female 07/14/2024 2:34 PM INTERIOR DECORATOR PAPERHANGING Legal Sex Female 10:30 PM CDT Gender Identity Female 09/08/2021 2:46 PM CDT Sexual Orientation Straight 07/14/2024 2: 34 PM INTERIOR DECORATOR PAPERHANGING Occupation Industry Job Start Date Job End [...] Description 08/23/2024 2:40 PM CDT Office Visit [facility] Medical Group Multispecialty Care - [place] [address] [address] [place] [address] Willis Gill MD [facility] [address] [address] 10/25/2024 11:00 AM CDT Office Visit [facility] [address] [place], [place] [id number] Joe Harman MD Three [facility]. [facility] [address] [place], [place] [id number] documented as of this encounter Visit Diagnoses Not on filedocumented in this encounter Additional Health Concerns Infection Onset Date Last Indicated Resolved Time COVID-19 Rule Out 07/14/2024 07/14/2024 07/14/2024 3:12 PM INTERIOR DECORATOR PAPERHANGING Influenza - Seasonal 07/14/2024 07/14/2024 025 12:32 AM INTERIOR DECORATOR PAPERHANGING Assessment Noted Time PHQ-9 Depression Total Score: 4 08/21/19 22 9:24 AM CDT documented as of this encounter Care Teams Bleacher [employer] Relationship Specialty Start Date End Date Willis Gill MD [address] [place] [address] PCP - General INTERNAL MEDICINE 04/03/21 Joe Harman MD Three [facility]. [facility] [address] [place], [place] [address] [place] Information Technology Teacher CARDIOVASCULAR DISEASE 12/23/15 documented as of this encounter
--- OUTSIDE RECORDS SUMMARY | 2024-08-18 20:07 | XMS_ITS | Clinical Summary ---
Author Organization [facility] Care Team Providers Care Size Worker Name Role Phone Unavailable Primary Care Provider Unavailabl e Social History Tobacco Use Types Packs/Day Years Used Date Smoking Tobacco: Never Assessed Comments Unknown Sex and Gender Information Value Date Recorded Sex Assigned at Not on file Legal Sex Female 2:44 PM FIELD SAMPLING TECHNICIAN Gender Identity Not on file Sexual Orientation [...]
--- OUTSIDE RECORDS SUMMARY | 2024-08-18 20:07 | XMS_ITS | Continuity of Care Document ---
Author Organization [facility] Address [address] [place] [address] Phone Care Team Providers Care Director Of Quality Control Name Role Phone Kaushik Ricardo Unavailable Unavailable Advance Directives Directive Yes / No Effective Date File Name No Information Encounters Encounter Description Practice Location Reason(s) For Visit Diagnoses Date Provider Providers Copied on [facility]counter [facility], [address] [place] [address] [address], [place], [place], [id number], [place] tel:[phone] [facility] No Information Haleigh Faulkner. [address] [place], [address], [place]. tel:[phone] Family History Family Member Type Diagnosis Age At Onset No Information Payers Payer name Insurance type Covered constitution party ID Authoriza tipurvi(s) [employer] SOI CI [id number] Social History Type Description Quantity Date Captured [...]
--- OUTSIDE RECORDS SUMMARY | 2024-08-18 20:07 | XMS_ITS | Encounter Summary ---
Author Organization [facility] Address [address] [place] [address] Care Team Providers Care Tooth Polisher Name Role Phone Joe Harman MD Unavailable [phone] Willis Gill MD Primary Care Provider [phone] Encounter Details Date Type Department Care Team (Late st Contact Info) Description 01/22/2022 Compositence Message Enc [facility] Medical Group Multispecialty Care - [address] [place] [address] Mychart, [facility] Provider Lidoderm patches Social History Tobacco Use [...] Sex Assigned at Female 07/14/2024 2:34 PM DIRECTOR OF MEDICAL STAFF SERVICES Legal Sex Female 10:30 PM CDT Gender Identity Female 09/08/2021 2:46 PM CDT Sexual Orientation Straight 07/14/2024 2: 34 PM DIRECTOR OF MEDICAL STAFF SERVICES Occupation Industry Job Start Date Job End [...] Description 08/23/2024 2:40 PM CDT Office Visit [facility] Medical Group Multispecialty Care - [place] [address] [address] [place] [address] Willis Gill MD [address] [address] 10/25/2024 11:00 AM CDT Office Visit [facility] [address] [facility] [address], [address] [place] [address] Joe Harman MD [facility] [address] [place], [place] [id number] documented as of this encounter Visit Diagnoses Not on filedocumented in this encounter Additional Health Concerns Infection Onset Date Last Indicated Resolved Time COVID-19 Rule Out 07/14/2024 07/14/2024 07/14/2024 3:12 PM DIRECTOR OF MEDICAL STAFF SERVICES Influenza - Seasonal 07/14/2024 07/14/2024 025 12:32 AM DIRECTOR OF MEDICAL STAFF SERVICES Assessment Noted Time PHQ-9 Depression Total Score: 4 08/21/19 22 9:24 AM CDT documented as of this encounter Care Teams Tooth Polisher Relationship Specialty Start Date End Date Willis Gill MD [address] [place] [address] PCP - General INTERNAL MEDICINE 04/03/21 Joe Harman MD [facility] [address] [place], [place] [address] [place] Biosolids Management Technician CARDIOVASCULAR DISEASE 12/23/15 documented as of this encounter
--- OUTSIDE RECORDS SUMMARY | 2024-08-18 20:07 | XMS_ITS | Encounter Summary ---
Author Organization [facility] Address [address] [place] [address] Care Team Providers Care Mall Manager Name Role Phone Dez Al MD Primary Care Provider [phone] Joe Harman MD Unavailable [phone] Eleazar Al MD Primary Care Provider [phone] Perla Luna MD Primary Care Provider Maria D Dawn NP Primary Care Provider Willis Almonte MD Primary Care Provider [phone] Encounter Details Date Type Department Care Team (Late st Contact Info) Description 01/02/2016 [facility] AT [address] [address] Tex Patel [place] Social History Tobacco Use Types Packs/Day Years Used Date Smoking Tobacco: Never Smokeless Tobacco: Never Alcohol Use Standard Drinks/Week Comments No 0 (1 standard drink = 0.6 oz pur e alcohol) Comments Unknown Sex and Gender Information Value Date Recorded Sex Assigned at Female 07/14/2024 2:34 PM BURLAP MAN Legal Sex Female 10:30 PM CDT Gender Identity Female 09/08/2021 2:46 PM CDT Sexual Orientation Straight 07/14/2024 2: 34 PM BURLAP MAN Occupation Industry Job Start Date Job End Date Retired Not on file Not on file Not on file documented as of this encounter Plan of Treatment Upcoming Encounters Date Type Department Care Team (Late st Contact Info) Description 08/23/2024 2:40 PM CDT Office Visit [facility] Medical [facility] Multispecialty [place] [address] [facility] [address] [place] [address] Willis Gill MD [address] [facility] [address] [place] [address] 10/25/2024 11:00 AM CDT Office Visit [facility] THREE [facility] [address], [address] [place], [place] [id number] Joe Harman MD Three [facility]. [address] [place] [address] documented as of this encounter Procedures Procedure [...] Rule Out 07/14/2024 07/14/2024 07/14/2024 3:12 PM BURLAP MAN Influenza - Seasonal 07/14/2024 07/14/2024 03 025 12:32 AM BURLAP MAN documented as of this encounter Care Teams Mall Manager Relationship Specialty Start Date End Date Dez Al MD [address] [place] [address] PCP - General FAMILY PRACTICE 12/23/15 09/01/16 Eleazar Al MD [address] [place] [address] PCP - General 09/02/16 01/04/17 Perla Luna MD [address] [place] [address] PCP - General FAMILY PRACTICE 07/22/17 01/21/21 Maria D Dawn NP [address] [place] [address] PCP - General NURSE PRACTITIONER 01/22/21 04/02/21 Willis Gill MD [address] [facility] [address] [place] [address] PCP - General INTERNAL MEDICINE 04/03/21 Joe Harman MD Three [facility]. [address] [address] Poli Painter Apprentice CARDIOVASCULAR DISEASE 12/23/15 documented as of this encounter
--- OUTSIDE RECORDS SUMMARY | 2024-08-18 20:07 | XMS_ITS | Encounter Summary ---
Author Organization [facility] Address [address] [place] [address] Care Team Providers Care Shipping And Receiving Specialist Name Role Phone Joe Harman MD Unavailable [phone] Willis Gill MD Primary Care Provider [phone] Encounter Details Date Type Department Care Team (Late st Contact Info) Description 11/05/2022 MyChart Message Enc [place] [address] [address] [place] [address] [place] [address] [place] [address] [address] [place], [place] [id number] mammogram Social History Tobacco Use Types Packs/Day Years Used Date Smoking Tobacco: Never Smokeless Tobacco: Never Comments:counseled by Dr Leticia massey Alcohol Use Standard Drinks/Week Comments Never 0 (1 standard drink = 0.6 oz pur e alcohol) PHQ-2 Answer Date Recorded Patient Health Questionnaire-2 Score 1 09/25/2022 Comments No Sex and Gender Information Value Date Recorded Sex Assigned at Female 07/14/2024 2:34 PM HARDWOOD FALLER Legal Sex Female 10:30 PM CDT Gender Identity Female 09/08/2021 2:46 PM CDT Sexual Orientation Straight 07/14/2024 2: 34 PM HARDWOOD FALLER Occupation Industry Job Start Date Job End Date Not on file Not on file Not on file Not on file documented as of this encounter Plan of Treatment Upcoming Encounters Date Type Department Care Team (Late st Contact Info) Description 08/23/2024 2:40 PM CDT Office Visit [address] [place] [address] Willis Gill MD [facility] [address] [address] 10/25/2024 11:00 AM CDT Office Visit [facility] THREE [facility], [address] [place] [address] Joe Harman MD Three [facility]. [address] [place] [address] documented as of this encounter Visit Diagnoses Not on filedocumented in this encounter Additional Health Concerns Infection Onset Date Last Indicated Resolved Time COVID-19 Rule Out 07/14/2024 07/14/2024 07/14/2024 3:12 PM HARDWOOD FALLER Influenza - Seasonal 07/14/2024 07/14/2024 025 12:32 AM HARDWOOD FALLER Assessment Noted Time PHQ-9 Depression Total Score: 4 08/21/19 22 9:24 AM CDT documented as of this encounter Care Teams Shipping And Receiving Specialist Relationship Specialty Start Date End Date Willis Gill MD [address] [place] [address] PCP - General INTERNAL MEDICINE 04/03/21 Joe Harman MD Three [facility]. [address] [place] [address] [place] Lieutenant Ballistics CARDIOVASCULAR DISEASE 12/23/15 documented as of this encounter
--- OUTSIDE RECORDS SUMMARY | 2024-08-18 20:07 | XMS_ITS | Encounter Summary ---
Author Organization [facility] Address [address] [place] [address] Care Team Providers Care Ldr Nurse Name Role Phone Joe Harman MD Unavailable [phone] Willis Gill MD Primary Care Provider [phone] Encounter Details Date Type Department Care Team (Late Contact Info) Description 12/01/2023 ripplrr inc Message Enc [facility] [place] [address] [address] [place] [address] [place], [facility] Provider Lab Results Social History Tobacco Use [...] Sex Assigned at Female 07/14/2024 2:34 PM HOME TEACHING GRADES 9 THRU 12 TEACHER Legal Sex Female 10:30 PM CDT Gender Identity Female 09/08/2021 2:46 PM CDT Sexual Orientation Straight 07/14/2024 2: 34 PM HOME TEACHING GRADES 9 THRU 12 TEACHER Occupation Industry Job Start Date Job End Date Not on file Not on file Not on file Not on file documented as of this encounter Plan of Treatment Upcoming Encounters Date Type Department Care Team (Late Contact Info) Description 08/23/2024 2:40 PM CDT Office Visit [facility] Multispecialty [facility] [place] [address] [address] [place] [address] Willis Gill MD [facility] [address] [place] [address] 10/25/2024 11:00 AM CDT Office Visit [facility] THREE [facility] [address] [place] [address] Joe Harman MD Three [facility]. [facility] [address] [place] [address] documented as of this encounter Visit Diagnoses Not on filedocumented in this encounter Additional Health Concerns Infection Onset Date Last Indicated Resolved Time COVID-19 Rule Out 07/14/2024 07/14/2024 07/14/2024 3:12 PM HOME TEACHING GRADES 9 THRU 12 TEACHER Influenza - Seasonal 07/14/2024 07/14/2024 025 12:32 AM HOME TEACHING GRADES 9 THRU 12 TEACHER Assessment Noted Time PHQ-9 Depression Total Score: 2 03/12/20 23 10:33 AM CDT documented as of this encounter Care Teams Ldr Nurse Relationship Specialty Start Date End Date Willis Gill MD 1188 [facility] 157 [place] [address] PCP - General INTERNAL MEDICINE 04/03/21 Joe Harman MD Three [facility]. [facility] [address] [place] [address] [place] Housekeeping Department Worker CARDIOVASCULAR DISEASE 12/23/15 documented as of this encounter
--- OUTSIDE RECORDS SUMMARY | 2024-08-18 20:07 | XMS_ITS | Clinical Summary ---
Author Organization [facility] [address] Address [address] [place] [address] Care Team Providers Care Lime Kiln And Recausticizing Operator Name Role Phone Willis Gill MD Primary Care Provider [phone] Allergies Active Allergy Reactions Criticality Noted Date [...] on file Legal Sex Female 8:09 PM PMO PROJECT MANAGER Gender Identity Not on file Sexual Orientation [...] 65+ Completed 09/25/2022, 07/24 Insurance MEDICARE MEDICARE [facility] MEDICARE [facility] Care Teams Lime Kiln And Recausticizing Operator Relationship Specialty Start Date End Date Willis Gill MD [address] [place] [address] PCP - General Internal Medicine 04/13/23
--- OUTSIDE RECORDS SUMMARY | 2024-08-18 20:07 | XMS_ITS | Encounter Summary ---
Author Organization [facility] Address [address] [place] [address] Care Team Providers Care Marine Surveyor Name Role Phone Joe Harman MD Unavailable [phone] Willis Gill MD Primary Care Provider [phone] Encounter Details Date Type Department Care Team (Late st Contact Info) Description 02/26/2022 MyChart Message Enc [address] [place] [address] Zoie Lutz, DISHWASHER BUSSER Mammogram Social History Tobacco Use Types Packs/Day [...] Sex Assigned at Female 07/14/2024 2:34 PM ELECTRIC FORK OPERATOR Legal Sex Female 10:30 PM CDT Gender Identity Female 09/08/2021 2:46 PM CDT Sexual Orientation Straight 07/14/2024 2: 34 PM ELECTRIC FORK OPERATOR Occupation Industry Job Start Date Job End Date Not on file Not on file Not on file Not on file documented as of this encounter Plan of Treatment Upcoming Encounters Date Type Department Care Team (Late st Contact Info) Description 08/23/2024 2:40 PM CDT [facility] [address] [place] [address] Willis Gill MD [address] [address] 10/25/2024 11:00 AM CDT Office Visit [facility] THREE [facility], [address] [address] Joe Harman MD Three [facility]. [facility] [address] [place] [address] documented as of this encounter Visit Diagnoses Not on filedocumented in this encounter Additional Health Concerns Infection Onset Date Last Indicated Resolved Time COVID-19 Rule Out 07/14/2024 07/14/2024 07/14/2024 3:12 PM ELECTRIC FORK OPERATOR Influenza - Seasonal 07/14/2024 07/14/2024 025 12:32 AM ELECTRIC FORK OPERATOR Assessment Noted Time PHQ-9 Depression Total Score: 4 08/21/19 22 9:24 AM CDT documented as of this encounter Care Teams Marine Surveyor Relationship Specialty Start Date End Date Willis Gill MD [address] [address] PCP - General INTERNAL MEDICINE 04/03/21 Joe Harman MD Three [facility]. [address] [address] [place] Burn Out Scarfing Operator CARDIOVASCULAR DISEASE 12/23/15 documented as of this encounter
--- OUTSIDE RECORDS SUMMARY | 2024-08-18 20:07 | XMS_ITS | Encounter Summary ---
Author Organization [facility] Address [address] [place] [address] Care Team Providers Care Steam Blocker Name Role Phone Joe Harman MD Unavailable Willis Gill MD Primary Care Provider [phone] Encounter Details Date Type Department Care Team (Late st Contact Info) Description 09/04/2021 MyChart Message Enc [facility] Medical Group Multispecialty Care - [address] [place] [address] Maria D Dawn, MARKETING ANALYTICS SPECIALIST xray Social History Tobacco Use Types Packs/Day [...] Sex Assigned at Female 07/14/2024 2:34 PM PRODUCT PICKER Legal Sex Female 10:30 PM CDT Gender Identity Female 09/08/2021 2:46 PM CDT Sexual Orientation Straight 07/14/2024 2: 34 PM PRODUCT PICKER Occupation Industry Job Start Date Job End [...] Description 08/23/2024 2:40 PM CDT Office Visit [facility] Medical Group Multispecialty Care - [place] [address] [address] [place] [address] Willis Gill MD [address] [address] 10/25/2024 11:00 AM CDT Office Visit [facility] [address] [facility] [address] [place] [address] Joe Harman MD Three [facility] [address] [place], [place] [address] documented as of this encounter Visit Diagnoses Not on filedocumented in this encounter Additional Health Concerns Infection Onset Date Last Indicated Resolved Time COVID-19 Rule Out 07/14/2024 07/14/2024 07/14/2024 3:12 PM PRODUCT PICKER Influenza - Seasonal 07/14/2024 07/14/2024 025 12:32 AM PRODUCT PICKER Assessment Noted Time PHQ-9 Depression Total Score: 4 08/21/19 22 9:24 AM CDT documented as of this encounter Care Teams Steam Blocker Relationship Specialty [place] [address] [place] [address] PCP - General INTERNAL MEDICINE 04/03/21 Joe Harmna MD Three [facility] [address] [place], [place] [address] [place] Enrollment Nurse CARDIOVASCULAR DISEASE 12/23/15 documented as of this encounter
--- OUTSIDE RECORDS SUMMARY | 2024-08-18 20:07 | XMS_ITS ---
Author Name Claudia Sotoyaya Rajput Address [address] [facility] [address] [place] [address] Phone [phone] Organization [facility] Address [address] [place] [address] Phone [phone] Care Team Providers Care Heavy Threader Name Role Phone Micah Soto Unavailable [phone] Willis Gill Unavailable [phone] Joe Harman Unavailable [phone] Functional Status No Results Mental Status No Results Allergies and Intolerances No Known Allergies Encounters Program Name Primary Diagnosis Admission Date/Time Dis charge Date/Time Rehabilitation [facility] WedOctober 05 20:00:00 EDT 2023May 12 17:00:00 EST 2023 null WedApr 30 06:00 :00 EST 2021 Problems Active Concerns * Pain in right [...]
--- OUTSIDE RECORDS SUMMARY | 2024-08-18 20:07 | XMS_ITS | Continuity of Care Document ---
Author Name Auto Generated, Auto Generated Organization [facility] Support Name Relationship Address Phone Serenity Shanks Emergency Contact 1 [address] [place] [address] Unavailable Serenity Shanks Sister [address] [place] [address] Unavailable Roro Martinez Financial Responsible Libertarian [address] [place] [address] Unavailable Roro Martinez Self [address] [place] [address] Unavailable Whitney Roberts Emergency Contact 2 Unknown Unavail able Summary Purpose Consult/Referral Allergies, Adverse Reactions, Alerts No Known Allergies Medications No Known Medications Conditions/Problems Problem/Diagnosis Awareness of Diagnosis Code (ICD-10) Onset Date (Start Date) Resolution Date (End Date) Status Source Comments LATERAL EPICONDYLITIS, UNSPECIFIED ELBOW M77.10 10/07/19 24 03/05/2024 Resolved Grebing , Dr Micah Rajput PAIN IN RIGHT SHOULDER M25.511 10/07/19 24 Active Grebing , Dr Micah Rajput WEAKNESS R53.1 10/07/19 24 Active [place] , Dr Micah Rajput PAIN IN LEFT SHOULDER M25.512 10/07/19 24 Active [place] , Dr Micah Rajput Procedures No Known Procedures
--- OUTSIDE RECORDS SUMMARY | 2024-08-18 20:07 | XMS_ITS | Encounter Summary ---
Author Organization [facility] Address [address] [place] [address] Care Team Providers Care Clinical Application Consultant Name Role Phone Dez Al MD Primary Care Provider [phone] Joe Harman MD Unavailable [phone] Eleazar Al MD Primary Care Provider [phone] Perla Luna MD Primary Care Provider Maria D Dawn NP Primary Care Provider Willis Almonte MD Primary Care Provider [phone] Encounter Details Date Type Department Care Team (Late st Contact Info) Description 07/02/2016 Abstract [facility] AT [address] [address] Tex Patel [place] Social History Tobacco Use Types Packs/Day Years Used Date Smoking Tobacco: Never Smokeless Tobacco: Never Alcohol Use Standard Drinks/Week Comments No 0 (1 standard drink = 0.6 oz pur e alcohol) Comments Unknown Sex and Gender Information Value Date Recorded Sex Assigned at Female 07/14/2024 2:34 PM ADVANCE SEAL DELIVERY SYSTEM MAINTAINER Legal Sex Female 10:30 PM CDT Gender Identity Female 09/08/2021 2:46 PM CDT Sexual Orientation Straight 07/14/2024 2: 34 PM ADVANCE SEAL DELIVERY SYSTEM MAINTAINER Occupation Industry Job Start Date Job End Date Not on file Not on file Not on file Not on file documented as of this encounter Progress Notes * JAED Valenzuela-KENYON - 02/04/2017 2:29 PM CDT PG pt send letter continue current meds documented in this encounter Plan of Treatment Upcoming Encounters Date Type Department Care Team (Late st Contact Info) Description 08/23/2024 2:40 PM CDT Office Visit [facility] Multispecialty Care - [place] [address] [address] [address] [place] [address] Willis Gill MD [address] [facility] [address] [place] [address] 10/25/2024 11:00 AM CDT Office [facility] [address] [place], [place] [address] Joe Harman MD Three [facility]. [facility] [address] [place], [place] [id number] documented as of this encounter Procedures Procedure [...] Rule Out 07/14/2024 07/14/2024 07/14/2024 3:12 PM ADVANCE SEAL DELIVERY SYSTEM MAINTAINER Influenza - Seasonal 07/14/2024 07/14/2024 025 12:32 AM ADVANCE SEAL DELIVERY SYSTEM MAINTAINER documented as of this encounter Care Teams Clinical Application Consultant Relationship Specialty Start Date End Date Dez Al MD [address] [address] PCP - General FAMILY PRACTICE 12/23/15 09/01/16 Eleazar Al MD [address] [place] [address] PCP - General 09/02/16 01/04/17 Perla Luna MD [address] [place] [address] PCP - General FAMILY PRACTICE 07/22/17 01/21/21 Maria D Dawn NP [address] [place] [address] PCP - General NURSE PRACTITIONER 01/22/21 04/02/21 Willis Gill MD [address] [facility] [address] [place] [address] PCP - General INTERNAL MEDICINE 04/03/21 Joe Harman MD Three [facility]. [address] [address] [place] Csr CARDIOVASCULAR DISEASE 12/23/15 documented as of this encounter
--- OUTSIDE RECORDS SUMMARY | 2024-08-18 20:07 | XMS_ITS | Continuity of Care Document ---
Author Organization [facility] Address [address] [facility] [address] [place] [address] Phone Care Team Providers Care Brim Cutter Name Role Phone Derrick PT,MPT,ATC, Jalil Unavailable Unavai lable Procedures Procedure Date Therapeutic Activities Neuromuscular Re-Ed Therapeutic Exercise Therapeutic Activities Therapeutic Exercise Neuromuscular Re-Ed Neuromuscular Re-Ed Therapeutic Activities Therapeutic Exercise Therapeutic Activities Therapeutic Exercise Therapeutic Activities Therapeutic Exercise Neuromuscular Re-Ed Doc neg elder mal no plan Doc neg elder mal no plan Therapeutic Activities PT Evaluation Moderate Complexity Neuromuscular Re-Ed Therapeutic Activities Therapeutic Exercise Therapeutic Activities Neuromuscular Re-Ed Therapeutic Exercise Therapeutic Activities Neuromuscular Re-Ed Therapeutic Exercise Therapeutic Activities Neuromuscular Re-Ed Therapeutic Exercise Therapeutic Activities Neuromuscular Re-Ed Therapeutic Exercise PT Re-evaluation Neuromuscular Re-Ed Therapeutic Exercise Therapeutic Activities Therapeutic Activities Therapeutic Exercise Neuromuscular Re-Ed Therapeutic Activities Neuromuscular Re-Ed Therapeutic Exercise Therapeutic Activities Neuromuscular Re-Ed Therapeutic Exercise Therapeutic Activities Neuromuscular Re-Ed Therapeutic Exercise Therapeutic Activities Therapeutic Exercise Neuromuscular Re-Ed Progress Note Therapeutic Exercise Therapeutic Activities Neuromuscular Re-Ed Therapeutic Activities Neuromuscular Re-Ed Therapeutic Exercise Therapeutic Activities Neuromuscular Re-Ed Manual Therapy Therapeutic Exercise Neuromuscular Re-Ed Therapeutic Activities Neuromuscular Re-Ed Therapeutic Activities Therapeutic Exercise Therapeutic Activities Neuromuscular Re-Ed Therapeutic Exercise Therapeutic Activities Neuromuscular Re-Ed Therapeutic Exercise Therapeutic Activities Neuromuscular Re-Ed Therapeutic Exercise Doc neg elder mal no plan PT [...] Diagnoses Date Provider Providers Copied on Encounter [facility] [facility] [address], [place], [place], [id number], tel:[phone] [place] No Information 2 [facility] [place]. Referring Provider: Willis Gill [address] [facility] [address], [place], [address]. tel:[phone] [facility], [place], [place], [address], tel:[phone] [place] No Information 0 2 [facility] [place]. Referring Provider: Willis Gill, [address], [place], [address]. tel:[phone] [facility], [place], [place], [address], tel:[phone] [place] No Information 0 2 [place], [place], [place]. Referring Provider: Willis Gill [address], [place], [address]. tel:[phone] [facility], [place], [place], [address], [place] tel:[phone] [place] No Information Sep-2 2 Derrick Harrisn. , [place], [place]. Referring Provider: Willis Gill [address], [place], [address]. tel:[phone] [facility], [place], [place], [address], [place] tel:[phone] [place] No Information Sep-2 2 Derrick Jimenes. , [place], [place]. Referring Provider: Willis Gill [address], [place], [address]. tel:[phone] [facility], [place], [place], [address], [place] tel:[phone] [place] No Information Sep-1 2 Derrick Jimenes. , [place], [place]. Referring Provider: Willis Gill [address], [place], [address]. tel:[phone] [facility], [place], [place], [address], [place] tel:[phone] [place] No Information Aug-0 2 Derrick Harrisn. , [place], [place]. [facility], [place], [place], [address], [place] tel:[phone] [place] No Information Aug-0 2 Derrick Harris[place]. , [place], [place]. [facility], [place], [address], [place] tel:[phone] [place] No Information Aug-0 2 Derrick Harrisn. , [place], [place]. [facility], [place], [place], [address], [place] tel:[phone] [place] No Information 2 Meza Jalil. , [place], [place]. [facility], [place], [place], [address], [place] tel:[phone] [place] No Information 2 Meza Jalil. , [place], [place]. [facility], [place], [address], [place] tel:[phone] [place] No Information 2 Meza Jal[place]. , [place], [place]. [facility], [place], [place], [address], [place] tel:[phone] [place] No Information 2 Meza Jal[place]. , [place], [place]. [facility], [place], [place], [address], [place] tel:[phone] [place] No Information 2 Meza Jal[place]. , [place], [place]. [facility], [place], [address], [place] tel:[phone] [place] No Information 2 Meza Jal[place]. , [place], [place]. [facility], [place], [place], [address], [place] tel:[phone] [place] No Information 2 Meza Jalil. , [place], [place]. [facility], [place], [place], [address], [place] tel:[phone] [place] No Information 2 Meza Jalil. , [place], [place]. [facility], [place], [place], [address], [place] tel:[phone] [place] No Information 2 Meza Jalil. , [place], [place]. [facility], [place], [place], [address], [place] tel:[phone] [place] No Information [place]-3 0 2 Meza Jal[place]. , [place], [place]. [facility], [address], [place], [place], [address], tel:[phone] [place] No Information [place]-2 2 Meza Jal[place]. , [place], [place]. [facility], [place], [place], [address], tel:[phone] [place] No Information [place]-2 2 Meza Jal[place]. , [place], [place]. [facility], [place], [place], [address], tel:[phone] [place] No Information [place]-2 2 Meza Jal[place]. , [place], [place]. [facility], [place], [place], [address], [place] tel:[phone] [place] No Information [place]-1 2 Meza Jal[place]. , [place], [place]. [facility], [place], [place], [address], [place] tel:[phone] [place] No Information [place]-1 2 Meza Jal[place]. , [place], [place]. [facility], [place], [address], [place] tel:[phone] [place] No Information [place]-1 2 Meza Jal[place]. , [place], [place]. [facility], [address], [place], [place], [address], [place] tel:[phone] [place] No Information Isreal-1 0 2 Meza Jal[place]. , [place], [place]. [facility], [place], [place], [address], [place] tel:[phone] [place] Low back pain Apr-2 201 9 Ralph Solano. . Referring Provider: Bob Luna [address], [place], [address]. tel:[phone] [facility], [address] [facility], [place], [place], [address], [place] tel:[phone] [place] Low back pain Apr-2 2-201 9 Makler Luke. . Referring Provider: [address], [place], [address]. tel:[phone] [facility], [place], [place], [address], [place] tel:[phone] [place] Low back pain Apr-1 7-201 9 Makler Luke. . Referring Provider: Bob Luna, [address], [place], [address]. tel:[phone] [place] [address], [address] [address], [place], [place], [address], [place] tel:[phone] [place] Low back pain Apr-1 5-201 9 Makler Luke. . Referring Provider: [address], [place], [address]. tel:[phone] [place] [address] [address], [place], [place], [address], [place] tel:[phone] [place] Low back pain Apr-1 0-201 9 Makler Luke. . Referring Provider: [address], [place], [address]. tel:[phone] [facility] [facility] [address], [place], [place], [address], [place] tel:[phone] [place] Low back pain Apr-0 8-201 9 Makler Luke. . Referring Provider: [address], [place], [address]. tel:[phone] [facility] [facility], [place], [place], [address], [place] tel:[phone] [place] Low back pain Apr-0 3201 9 Ralph Solano. . Referring Provider: Bob Luna, [facility] [facility] [address], [place], [address]. tel:[phone] [facility], [address] [place], [place] [address], [place], [place], [address], [place] tel:[phone] [place] No Information Feb-2 1 5 Andrei Chika. [address] [facility], [address], [place], [place], [facility]. tel:[phone] Referring Provider: Eleazar Jmi, [address], [place], [address]. tel:[phone] [place] [address], [address] [place], [place] [address], [place], [place], [address], [place] tel:[phone] [place] No Information 1 5 Andrei Chika. [address] [place] [address], [address], [place], [place], [facility] [place], [place]. tel:[phone] Referring Provider: Eleazar Jim, [address], [place], [address]. tel:[phone], [place], [place], [address], [place] tel:[phone] [place] No Information 0 9201 5 Andrei Chika. [address] [place] [address], [address], [place], [address], [place]. tel:[phone] Referring Provider: Eleazar Jim, [address], [place], [address]. tel:[phone], [place], [place], [address], [place] tel:[phone] [place] No Information 0 7 5 Andrei Chika. [address] [place] [address], [address], [place], [address], . tel:[phone] Referring Provider: Eleazar Jim, [address], [place], [address]. tel:[phone] [place] [address], [address] [facility] [address], [place], [place], [address], [place] tel:[phone] [place] No Information Oct-0 5-201 5 Andrei Chika. [address] [place] [address], [address], [place], [address], [place]. tel: [phone] Referring Provider: Eleazar Jim, [address], [place], [address]. tel:[phone] [place] [address], [address] [facility] [address], [place], [address], [place] tel:[phone] [place] Unsp rotatr-cuff tear/ruptr of left shoulder, not traumaStiffne ss of left shoulder, not elsewhere classifiedPai n in left shoulderPerso nal history of (healed) traumatic fracturePain in right wristStiffnes s of right wrist, not elsewhere classified Oct-0 2-201 5 Andrei Chika. [address] [place] [address], [address], [place], [place], [facility] [place], [place]. tel:[phone] Referring Provider: Eleazar Jim, [address], [place], [address]. [phone] [place] [address], [address] [facility] [address] [place] [address], [id number], [place] tel:[phone] [place] No Information Sep-3 0-201 5 Andrei Chika. [address] [place] [address], [address], [place], [place], [facility] [place], [place]. tel:[phone] Referring Provider: Eleazar Jim, [address], [place], [address]. tel:[phone] [place] [address], [address] [facility] [address], [place], [address], [place] tel:[phone] [place] No Information Sep-2 8-201 5 Andrei Chika. [address] [place] [address], [address], [place], [address], [place]. tel:[phone] Referring Provider: Eleazar Jim, [address], [place], [address]. tel:[phone] [facility] [address] [place], [place] [address], [place], [place], [address], [place] tel:[phone] [place] No Information Sep-2 5 Andrei Chika. [address] [facility], [address], [place], [facility] [place], . tel:[phone] Referring Provider: Dewey [place] [place], [address]. tel:[phone] 3044 [facility] [address] [place] [address] [address], [place], [address], [place] tel:[phone] [place] Pain in joint involving handPain in joint involving shoulder region Sep- Andrei Mccartneyie. [address] [facility], [address], [place], [address], . tel:[phone] Referring Provider: Sand[place], [address]. tel:[phone] Family History Family Member Type Diagnosis Age At Onset No Information Payers Payer name Insurance type Covered libertarian ID Authorjovannya tipurvi(s) Medicare [place] [id number] [facility] [id number] Social History Type Description Quantity Date Captured [...]
--- OUTSIDE RECORDS SUMMARY | 2024-08-18 20:07 | XMS_ITS | Clinical Summary ---
Author Organization [facility] Address [address] [place] [address] Care Team Providers Care Can Cleaner Name Role Phone Joe Harman MD Unavailable [phone] Willis Gill MD Primary Care Provider [phone] Allergies No known active allergies Medications aspirin [...] Department Care Team Description 07/14/2024 2:20 PM GERENTOLOGICAL PHYSIOTHERAPIST Office Visit [facility] Multispecialty Care - [address] [place] [address] Willis Gill MD Cough; Congestion; Fatigue; Diarrhea [...] History Medical History Relation Comments CABG Brother CT Brother Stent Cardiac Brother PTCA Heart Attack [...] Sex Assigned at Female 07/14/2024 2:34 PM GERENTOLOGICAL PHYSIOTHERAPIST Legal Sex Female 10:30 PM CDT Gender Identity Female 09/08/2021 2:46 PM CDT Sexual Orientation Straight 07/14/2024 2: 34 PM GERENTOLOGICAL PHYSIOTHERAPIST Occupation Industry Job Start Date Job End Date Not on file Not on file Not on file Not on file Last Filed Vital Signs Vital Sign Reading Time Taken Comments Blood Pressure 103/80 07/14/2024 2:35 PM GERENTOLOGICAL PHYSIOTHERAPIST Pulse 81 07/14/2024 2:35 PM GERENTOLOGICAL PHYSIOTHERAPIST Temperature 37.6 C (99.6 F) 07/14/2024 2:35 PM GERENTOLOGICAL PHYSIOTHERAPIST Respiratory Rate 12 07/14/2024 2:35 PM GERENTOLOGICAL PHYSIOTHERAPIST Oxygen Saturation 94% 07/14/2024 2:35 PM GERENTOLOGICAL PHYSIOTHERAPIST Inhaled Oxygen Concentration - - Weight 75.7 kg (166 lb 12.8 oz) 07/14/2024 2:35 PM GERENTOLOGICAL PHYSIOTHERAPIST Height 160 cm (5' 3 ) 07/14/2024 2:35 PM GERENTOLOGICAL PHYSIOTHERAPIST Body Mass Index 29.55 07/14/2024 2:35 PM GERENTOLOGICAL PHYSIOTHERAPIST Plan of Treatment Upcoming Encounters Date Type Department Care Team (Late st Contact Info) Description 08/23/2024 2:40 PM CDT Office Visit [facility] Multispecialty [place] - [place] [address] [place] [address] [address] [place] [address] Willis Gill MD [address] [facility] [address] [place], [place] [address] 10/25/2024 11:00 AM CDT Office Visit [facility] THREE [facility], [facility] [address] [place], [place] [id number] Joe Harman MD Three [facility]. [facility] [address] [place], [place] [id number] Health Maintenance Due Date Last Done Comments DTaP, Tdap and Td Vaccines (1 - Tdap) 10/16/1963 Zoster Vaccines (1 of 2) 1994 Annual Medicare Wellness Visit 2009 RSV Immunization or 60+ Years (1 - 1-dose 75+ series) 10/16/2019 COVID-19 Vaccine ( season) 2024 11/16/2022, 03/14/2021, 08/12/2020, Additional history exists PHQ-2 (Physician [place]) 05/24/2024 04/10/2024 Colorectal Cancer Screening Colonoscopy (10 [...] A & B ANTIGEN IA PANEL (07/14/2024) [facility] CORONAVIRUS ANTIGEN IA NEGATIVE NEGATIVE [id number], [place] INFLUENZA A POSITIVE(A) NEGATIVE MG-[id number], [place] INFLUENZA B NEGATIVE NEGATIVE MG-[address], [place] Internal Control: VALID VALID MG-[address], [place] NASAL STRUCTURE / Unknown 07/14/2024 us Willis Gill MD MICROBIOLOGY - GENERAL ORDERABLE S Final Result [id number], [place] [address] [place] [address], [place] [phone] * HEPATITIS C ANTIBODY (09/25/2022 10:06 AM CDT) Pathologist [facility] HEPATITIS C AB NON-REACTI VE NON-REACT KYLE 09/25/2022 9:27 PM CDT [facility] Comment: ANTIBODIES TO HCV NOT DETECTED. DOES NOT EXCLUDE THE POSSIBILITY OF EXPOSURE TO HCV. 09/25/2022 10:0 6 AM CDT us Willis Gill MD LABORATORY Final Result [facility] [address] [place] [address], [place] [phone] [id number] * BONE DENSITY/DEXA (10/16/2021 12:00 AM CDT) Anatomical Region Laterality Modality Bone Bone Density 10/16/2021 Willis Gill MD DEXA Final Result * COLONOSCOPY GENERIC (06/22/2018) 06/22/2018 Narrative 06/22/2018 Ordered by an unspecified provider. Documents Scanned SCANNING Final Result from Last 3 Months or Most Recently Relevant to Health Maintenance Insurance MEDICARE MEDICARE Care Teams Can Cleaner Relationship Specialty Start Date End Date Willis Gill MD [address] [facility] [address] [place] [address] PCP - General INTERNAL MEDICINE 04/03/21 Joe Harman MD [facility]. [address] [address] [place] Lacrosse Coach CARDIOVASCULAR DISEASE 12/23/15
--- OUTSIDE RECORDS SUMMARY | 2024-08-18 20:07 | XMS_ITS | Referral Summary ---
Author Organization [facility] [place] [place] [address] [place] Address [address] [place] [address] Care Team Providers Care Substance Abuse Clinician Name Role Phone Willis Gill MD Primary Care Provider [phone] Allergies Active Allergy Reactions Criticality Noted Date [...] on file Legal Sex Female 8:09 PM CHAIRPERSON ANESTHESIOLOGY Gender Identity Not on file Sexual Orientation [...] Treatment Not on file Insurance MEDICARE MEDICARE [facility] MEDICARE [facility] Care Teams Substance Abuse Clinician Relationship Specialty Start Date End Date Willis Gill MD [address] [place] [address] PCP - General Internal Medicine 04/13/23
--- OUTSIDE RECORDS SUMMARY | 2024-08-18 20:07 | XMS_ITS | Encounter Summary ---
Author Organization [facility] Address [facility] [place] [address] Care Team Providers Care Plant Wrapper Name Role Phone Dez Al MD Primary Care Provider [phone] Joe Harman MD Unavailable [phone] Eleazar Al MD Primary Care Provider [phone] Eleazar Al MD Primary Care Provider [phone] Eleazar Al MD Primary Care Provider [phone] Perla Luna MD Primary Care Provider Maria D Dawn NP Primary Care Provider Willis Almonte MD Primary Care Provider [phone] Encounter Details Date Type Department Care Team (Late st Contact Info) Description 06/26/2015 [facility] [address] [address] Joe Harman MD [address] [address] Social History Tobacco Use Types Packs/Day Years Used Date Smoking Tobacco: Never Alcohol Use Standard Drinks/Week Comments No 0 (1 standard drink = 0.6 oz pur e alcohol) Comments Unknown Sex and Gender Information Value Date Recorded Sex Assigned at Female 07/14/2024 2:34 PM MANAGER IMMUNOLOGY Legal Sex Female 10:30 PM CDT Gender Identity Female 09/08/2021 2:46 PM CDT Sexual Orientation Straight 07/14/2024 2: 34 PM MANAGER IMMUNOLOGY documented as of this encounter Plan of Treatment Upcoming Encounters Date Type Department Care Team (Late st Contact Info) Description 08/23/2024 2:40 PM CDT Office Visit [facility] Multispecialty Care - [place] [address] [facility] [address] [place] [address] Willis Gill MD [address] [facility] [address] [place] [address] 10/25/2024 11:00 AM CDT Office Visit [facility], [facility] [address] [place], [place] [id number] Joe Harman MD [facility]. [facility] [address] [place], [place] [id number] documented as of this encounter Visit Diagnoses Not on filedocumented in this encounter Additional Health Concerns Infection Onset Date Last Indicated Resolved Time COVID-19 Rule Out 07/14/2024 07/14/2024 07/14/2024 3:12 PM MANAGER IMMUNOLOGY Influenza - Seasonal 07/14/2024 07/14/2024 025 12:32 AM MANAGER IMMUNOLOGY documented as of this encounter Care Teams Plant Wrapper Relationship Specialty Start Date End Date Dez Al MD [address] [place] [address] PCP - General FAMILY PRACTICE 12/23/15 09/01/16 Eleazar Al MD [address] [place] [address] PCP - General 09/02/16 01/04/17 Eleazar Al MD [address] [place] [address] PCP - General 07/03/15 12/22/15 Eleazar Al MD [address] [place] [address] PCP - General 05/08/13 07/02/15 Perla Luna MD [address] [place] [address] PCP - General FAMILY PRACTICE 07/22/17 01/21/21 Maria D Dawn, DESKTOP ADMINISTRATOR [address] [place] [address] PCP - General NURSE PRACTITIONER 01/22/21 04/02/21 Willis Gill MD [address] [facility] [address] [place] [address] PCP - General INTERNAL MEDICINE 04/03/21 Joe Harman MD [facility]. [address] [place] [address] Ashton Gauger Chief CARDIOVASCULAR DISEASE 12/23/15 documented as of this encounter
[2024-08-18] MEDS: LIDOCAINE 5% PATCH 1 PATCH TRANSDERM (20:14)
[2024-08-18 20:57] VITALS: BP 143/83; PULSE 83; RESP 14; O2SAT 98
== END 2024-08-18 21:00 | disposition home or self-care (01) ==
PROVIDERS: Emergency Provider Emergency Medicine; PCP Internal Medicine
DX: S42.431A Displaced fracture (avulsion) of lateral epicondyle of right humerus, initial encounter for closed fracture (principal); S52.511A Displaced fracture of right radial styloid process, initial encounter for closed fracture; Z23 Encounter for immunization; I10 Essential (primary) hypertension; I35.1 Nonrheumatic aortic (valve) insufficiency; E55.9 Vitamin D deficiency, unspecified; M81.0 Age-related osteoporosis without current pathological fracture; K21.9 Gastro-esophageal reflux disease without esophagitis; Z86.73 Personal history of transient ischemic attack (TIA), and cerebral infarction without residual deficits; Z90.49 Acquired absence of other specified parts of digestive tract; Z79.82 Long term (current) use of aspirin; Z79.899 Other long term (current) drug therapy; W10.1XXA Fall (on)(from) sidewalk curb, initial encounter
CPT/HCPCS: 29125; 71250; 73080; 73110; 90471; 90715; 99284; A4565; A9270

== ENCOUNTER 2024-08-26 10:53 | Outpatient (CLI) | payer MEDICARE, SELFPAY ==
--- NOTE | ~2024-08-26 | DEXA_ITS ---
Bone Density Report Name: ELLY BA Age: 78 Sex: Female Ethnicity: White Date of : 1945 Indication: postmenopausal osteoporosis; monitoring treatment; height loss; Referring Provider: COLLIN, ANTHONY Study: Bone densitometry was performed. Exam Date: August 26, 2024 Accession number: [id number] Bone Density: Region BMD T-score Z-score Classification AP Spine(L1-L4) 0.676 -3.4 -0.7 Osteoporosis Femoral Neck (Left) 0.509 -3.1 -0.8 Osteoporosis Total Hip (Left) 0.718 -1.8 0.2 Osteopenia Femoral Neck (Right) 0.495 -3.2 -0.9 Osteoporosis Total Hip (Right) 0.705 -1.9 0.1 Osteopenia Total Hip Mean 0.711 -1.9 0.2 Osteopenia World Health Organization criteria for BMD impression classify patients as: Normal (T-score at or above -1.0), Osteopenia (T-score between -1.0 and -2.5), or Osteoporosis (T-score at or below -2.5). 10-year Fracture Risk: FRAX not reported because: Some T-score for Spine Total or Hip Total or Femoral Neck at or below -2.5 Treated for osteoporosis Previous Exams: Region Exam Age BMD T-score BMD Change BMD Change Date g/cm2 vs Baseline vs Previous AP Spine (L1-L4) 08/26/2024 78 0.676 -3.4 -0.014 (-2.1%) 0.016 (2.5%) 10/16/2021 76 0.660 -3.5 -0.031 (-4.4%) -0.001 (-0.2%) 02/01/2019 73 0.661 -3.5 -0.029 (-4.2%) -0.025 (-3.7%) 01/06/2017 71 0.687 -3.3 -0.004 (-0.6%) -0.004 (-0.6%) 09/14/2013 67 0.690 -3.2 Total Hip(Left) 08/26/2024 78 0.718 -1.8 -0.007 (-1.0%) 0.068 (10.4%)* 10/16/2021 76 0.651 -2.4 -0.075 (-10.3% -0.076 (-10.4% 02/01/2019 73 0.726 -1.8 0.001 (0.1%)# -0.010 (-1.3%) 01/06/2017 71 0.736 -1.7 0.010 (1.4%)# 0.010 (1.4%)# 09/14/2013 67 0.726 -1.8 Total Hip(Right) 08/26/2024 78 0.705 -1.9 -0.091 (-11.4% 0.027 (4.1%)* 10/16/2021 76 0.677 -2.2 -0.118 (-14.9% -0.097 (-12.5% 02/01/2019 73 0.774 -1.4 -0.021 (-2.7%) 0.018 (2.4%) 01/06/2017 71 0.756 -1.5 -0.039 (-5.0%) -0.039 (-5.0%) 09/14/2013 67 0.796 -1.2 *Denotes significance at 95% confidence level, LSC for AP Spine = 0.022 g/cm2, LSC for Total Hip = 0.027 g/cm2 # Denotes dissimilar scan types or analysis methods Clinical Information Provided by Patient: Is being treated for osteoporosis Has used the following medications: Fosamax (i.e. alendronate), Vitamin D, Calcium Patient maximum height was 63 Menopause Age: 49 No regular weight bearing exercise Drinks caffeinated beverages Onset of menses at age 11 Number of children 2 Impression: The patient has osteoporosis, based on the Total Spine T-score. No significant bone loss was observed. Discussion: PATIENT UNDER TREATMENT WITH NO SIGNIFICANT BMD LOSS SINCE LAST EXAM. In an untreated patient, BMD typically declines with age. A lack of decline or gain is usually a sign that treatment is efficacious and fracture risk is reduced. It is important to ask patients whether they are taking their medications and to encourage continued and appropriate compliance with their osteoporosis therapies to reduce fracture risk. It is also important to review their risk factors and encourage appropriate calcium and vitamin D intakes, exercise, fall prevention and other lifestyle measures. Follow-Up: Consider a repeat BMD and Vertebral Fracture Assessment (VFA) exam in 2 years or sooner if medically necessary, to reassess this patient's status. Reported by: DOM on 08/26/2024 11:36:00 AM. Reviewed, dictated and finalized at meghan DENNIS
--- NOTE | ~2024-08-26 | MM_ITS ---
EXAMINATION: MM screening kika BI w jaqueline HISTORY: Screening TECHNIQUE: Craniocaudal and mediolateral oblique 3-D tomosynthesis images were obtained and synthetic 2-D images were generated. CAD analysis was submitted and interpreted. COMPARISON: Comparison to multiple prior studies sequentially, with oldest reviewed study dated 12/09. BREAST PARENCHYMAL COMPOSITION: Not dense: There are scattered areas of fibroglandular density. FINDINGS: There is no evidence of suspicious mass, calcification, or architectural distortion to sugg est malignancy in either breast. There has been no suspicious interval change. IMPRESSION: 1. No mammographic evidence of malignancy. 2. Recommend routine screening mammography in one year. BI-RADS Category 1: Negative Reviewed, dictated and finalized at location A.
--- OUTSIDE RECORDS SUMMARY | 2024-08-26 10:57 | XMS_ITS | Encounter Summary ---
Author Organization [facility] Address [address] [place] [address] Care Team Providers Care Youth Advocate Name Role Phone Dez Al MD Primary Care Provider [phone] Joe Harman MD Unavailable [phone] Eleazar Al MD Primary Care Provider [phone] Perla Luna MD Primary Care Provider Maria D Dawn NP Primary Care Provider Willis Almonte MD Primary Care Provider [phone] Encounter Details Date Type Department Care Team (Late st Contact Info) Description 01/02/2016 Abstract [facility] AT [address] [address] Tex Patel [place] Social History Tobacco Use Types Packs/Day Years Used Date Smoking Tobacco: Never Smokeless Tobacco: Never Alcohol Use Standard Drinks/Week Comments No 0 (1 standard drink = 0.6 oz pur e alcohol) Comments Unknown Sex and Gender Information Value Date Recorded Sex Assigned at Female 07/14/2024 2:34 PM HOGSHEAD WRECKER Legal Sex Female 10:30 PM CDT Gender Identity Female 09/08/2021 2:46 PM CDT Sexual Orientation Straight 07/14/2024 2: 34 PM HOGSHEAD WRECKER Occupation Industry Job Start Date Job End Date Retired Not on file Not on file Not on file documented as of this encounter Plan of Treatment Upcoming Encounters Date Type Department Care Team (Late st Contact Info) Description 10/25/2024 11:00 AM CDT [facility] [address] [place] [address] Joe Harman MD Three [facility]. [facility] [address] [place] [address] 01/31/2025 2:40 PM CDT Office Visit [facility] Medical Group Multispecialty Care - [place] [address] [facility] [address] [place] [address] Willis Gill MD [address] [facility] [address] [place] [address] documented as of this encounter Procedures Procedure [...] Rule Out 07/14/2024 07/14/2024 07/14/2024 3:12 PM HOGSHEAD WRECKER Influenza - Seasonal 07/14/2024 07/14/2024 03 025 12:32 AM HOGSHEAD WRECKER documented as of this encounter Care Teams Youth Advocate Relationship Specialty Start Date End Date Dez Al MD [address] [place] [address] PCP - General FAMILY PRACTICE 12/23/15 09/01/16 Eleazar Al MD [address] [place] [address] PCP - General 09/02/16 01/04/17 Perla Luna MD [address] [place] [address] PCP - General FAMILY PRACTICE 07/22/17 01/21/21 Maria D Dawn NP [address] [facility] [address] PCP - General NURSE PRACTITIONER 01/22/21 04/02/21 Willis Gill MD [address] [facility] [address] [place] [address] PCP - General INTERNAL MEDICINE 04/03/21 Joe Harman MD Three [facility]. [address] [address] Poli Check Examiner CARDIOVASCULAR DISEASE 12/23/15 documented as of this encounter
--- OUTSIDE RECORDS SUMMARY | 2024-08-26 10:57 | XMS_ITS | Encounter Summary ---
Author Organization [facility] Address [address] [place] [address] Care Team Providers Care Mud Temperer Name Role Phone Dez Al MD Primary Care Provider [phone] Joe Harman MD Unavailable [phone] Eleazar Al MD Primary Care Provider [phone] Perla Luna MD Primary Care Provider Maria D Dawn NP Primary Care Provider Willis Almonte MD Primary Care Provider [phone] Encounter Details Date Type Department Care Team (Late st Contact Info) Description 07/02/2016 Abstract [facility] AT [address] [address] Tex Patel [place] Social History Tobacco Use Types Packs/Day Years Used Date Smoking Tobacco: Never Smokeless Tobacco: Never Alcohol Use Standard Drinks/Week Comments No 0 (1 standard drink = 0.6 oz pur e alcohol) Comments Unknown Sex and Gender Information Value Date Recorded Sex Assigned at Female 07/14/2024 2:34 PM SUPERVISOR SHOP Legal Sex Female 10:30 PM CDT Gender Identity Female 09/08/2021 2:46 PM CDT Sexual Orientation Straight 07/14/2024 2: 34 PM SUPERVISOR SHOP Occupation Industry Job Start Date Job End Date Not on file Not on file Not on file Not on file documented as of this encounter Progress Notes * JADE Valenzuela-KENYON - 02/04/2017 2:29 PM CDT PG pt send letter continue current meds documented in this encounter Plan of Treatment Upcoming Encounters Date Type Department Care Team (Late st Contact Info) Description 10/25/2024 11:00 AM CDT Office Visit [facility] [address] [place] [address] Joe Harmna MD Three [facility]. [facility] [address] [place] [address] 01/31/2025 2:40 PM CDT Office Visit [facility] Multispecialty Care - [place] [address] [address] [place], [place] [id number] Willis Gill MD [address] [facility] [address] [place], [place] [id number] documented as of this encounter Procedures Procedure [...] Out 07/14/2024 07/14/2024 07/14/2024 3:12 PM SUPERVISOR SHOP Influenza - Seasonal 07/14/2024 07/14/2024 025 12:32 AM SUPERVISOR SHOP documented as of this encounter Care Teams Mud Temperer Relationship Specialty Start Date End Date Dez Al MD [address] [address] PCP - General FAMILY PRACTICE 12/23/15 09/01/16 Eleazar Al MD [address] [place] [address] PCP - General 09/02/16 01/04/17 Perla Luna MD [address] [place] [address] PCP - General FAMILY PRACTICE 07/22/17 01/21/21 Maria D Dawn NP [address] [place] [address] PCP - General NURSE PRACTITIONER 01/22/21 04/02/21 Willis Gill MD [address] [facility] [address] [place] [address] PCP - General INTERNAL MEDICINE 04/03/21 Joe Harman MD Three [facility]. [address] [address] [place] Press Breaker CARDIOVASCULAR DISEASE 12/23/15 documented as of this encounter
--- OUTSIDE RECORDS SUMMARY | 2024-08-26 10:57 | XMS_ITS | Clinical Summary ---
Author Organization [facility] Address [address] [place] [address] Care Team Providers Care Errand Runner Name Role Phone Joe Harman MD Unavailable [phone] Willis Gill MD Primary Care Provider [phone] Allergies No known active allergies Medications aspirin EC (ASPIRIN EC) 81 MG tablet Take 1 tablet (81 mg total) by mouth daily. 4 Active alendronate (FOSAMAX) 70 MG tabletIndication s:Age-related osteoporosis without current pathological fracture Take 1 tablet (70 mg total) by mouth every 7 days. Take the medicine on an empty stomach. It should be taken as soon as you get out of bed in the morning and at least 30 minutes before any food, beverage, or other medicines. Take with about 8oz of water. 12 tablet 1 4 Active oxyCODONE immediate release (ROXICODONE) 5 MG immediate release tablet Take 1 tablet (5 mg total) by mouth every 4 (four) hours as needed. FOR PAIN 5 Active ibuprofen (MOTRIN) 800 MG tablet TAKE 1 TABLET BY MOUTH THREE TIMES A DAY NEEDED FOR PAIN FOR 7 DAYS 5 Active losartan (COZAAR) 25 MG tabletIndication s:Benign essential hypertension Take 1 tablet (25 mg total) by mouth daily. 90 tablet 1 5 Active omeprazole (PRILOSEC) 40 MG capsuleIndicatio ns:Gastroesophag eal reflux disease without esophagitis Take 1 capsule (40 mg total) by mouth daily as needed. 90 capsule 2 5 Active oxybutynin XL (DITROPAN-XL) 5 MG 24 hr tabletIndication s:Overactive bladder Take 1 tablet (5 mg total) by mouth daily. 90 tablet 1 5 Active rosuvastatin (CRESTOR) 5 MG tabletIndication s:Benign essential hypertension,TIA (transient ischemic attack) Take 1 tablet (5 mg total) by mouth nightly at bedtime. New dose 90 tablet 1 5 Active sertraline (ZOLOFT) 25 MG tabletIndication s:Mild episode of recurrent major depressive disorder Take 0.5 tablets (12.5 mg total) by mouth nightly at bedtime. 90 tablet 1 5 Active vitamin D3 (CHOLECALCIFEROL ) 75 mcg Tab tabletIndication s:Vitamin D deficiency Take 1 tablet (75 mcg total) by mouth daily. 5 Active sertraline (ZOLOFT) 25 MG tabletIndication s:Mild episode of recurrent major depressive disorder Take 0.5 tablets (12.5 mg total) by mouth nightly at bedtime. 90 tablet 1 4 08/24/19 25 Discontinu ed(Reorder ) rosuvastatin (CRESTOR) 5 MG tabletIndication s:TIA (transient ischemic attack),Benign essential hypertension Take 1 tablet (5 mg total) by mouth nightly at bedtime. New dose 90 tablet 1 4 08/24/19 25 Discontinu ed(Reorder ) omeprazole (PRILOSEC) 40 MG capsuleIndicatio ns:Gastroesophag eal reflux disease without esophagitis Take 1 capsule (40 mg total) by mouth daily as needed. 90 capsule 2 4 08/24/19 25 Discontinu ed(Reorder ) losartan (COZAAR) 25 MG tabletIndication s:Benign essential hypertension Take 1 tablet (25 mg total) by mouth daily. 90 tablet 1 4 08/24/19 25 Discontinu ed(Reorder ) oxybutynin XL (DITROPAN-XL) 5 MG 24 hr tabletIndication s:Overactive bladder Take 1 tablet (5 mg total) by mouth daily. 90 tablet 4 08/24/19 25 Discontinu ed(Reorder ) albuterol sulfate HFA 108 (90 Base) MCG/ACT inhalerIndicatio ns:URTI (acute upper respiratory infection) Inhale 2 puffs into the lungs every 6 (six) hours as needed. 18 g 5 08/24/19 25 Discontinu ed(Other- Please enter comment in Notes field) Active Problems Problem Noted Date Diagnosed Date Anemia, unspecified type 09/24/2023 Multiple atypical skin moles 09/24/2023 Mild episode of recurrent major depressive disor farshad 01/09/2022 Osteoporosis 11/03/2021 Osteopenia 11/03/2021 Nonrheumatic tricuspid valve regurgitation 05/21 Primary osteoarthritis of both knees 05/21/2021 TIA (transient ischemic attack) 01/01/2016 Nonrheumatic aortic valve insufficiency 01/01/20 16 Benign essential hypertension Encounters Date Type Department Care Team Description 08/23/2024 2:40 PM CDT Office Visit [place] [address] [address] [place] [address] Willis Gill MD Follow Up (Chronic medical issues); Osteoporosis; Arthritis (Both knees); Hypertension; Depression; Fall Major 08/23/2024 Telephone [place] [address] [place] [address] Willis Gill MD Appointment Request 08/23/2024 Travel 08/18/2024 Scan HEALTH INFO SRVCS Scanned, Doc Med Group Image (SCAN) 07/14/2024 2:20 PM SCHEDULER MAINTENANCE Office Visit [place] [address] [address] [address] [place] [address] Willis Gill MD Cough; Congestion; Fatigue; Diarrhea [...] (Pneumovax 23) 08/20/2021 Pneumococcal (Prevnar 13) 09/25/2022 Tdap (Generic) 08/18/2024 Family History Medical History Relation Comments CABG Brother [place] Brother Stent Cardiac Brother PTCA Heart Attack [...] Date Recorded Patient Health Questionnaire-2 Score 0 08/23/2024 Comments No Sex and Gender Information Value Date Recorded Sex Assigned at Female 07/14/2024 2:34 PM SCHEDULER MAINTENANCE Legal Sex Female 10:30 PM CDT Gender Identity Female 09/08/2021 2:46 PM CDT Sexual Orientation Straight 07/14/2024 2: 34 PM SCHEDULER MAINTENANCE Occupation Industry Job Start Date Job End Date Not on file Not on file Not on file Not on file Last Filed Vital Signs Vital Sign Reading Time Taken Comments Blood Pressure 136/71 08/23/2024 2:36 PM CDT Pulse 74 08/23/2024 2:36 PM CDT Temperature 35.7 C (96.2 F) 08/23/2024 2:36 PM CDT Respiratory Rate 16 08/23/2024 2:36 PM CDT Oxygen Saturation 97% 08/23/2024 2:36 PM CDT Inhaled Oxygen Concentration - - Weight 78.3 kg (172 lb 9.6 oz) 08/23/2024 2:36 P M CDT Height 160 cm (5' 3 ) 08/23/2024 2:36 PM CDT Body Mass Index 30.57 08/23/2024 2:36 PM CDT Plan of Treatment Upcoming Encounters Date Type Department Care Team (Late st Contact Info) Description 10/25/2024 11:00 AM CDT Office Visit [facility] [address] [facility], [facility] [place] [address] [place] [address] Joe Harman MD Three [facility]. [facility] [place] [address] [place] [address] 01/31/2025 2:40 PM CDT Office Visit [facility] Medical Group Multispecialty Care - [place] [address] [facility] [address] [place], [place] [id number] Willis Gill MD [address] [facility] [address] [place], [place] [id number] Health Maintenance Due Date Last Done Comments Zoster Vaccines (1 of 2) 1994 Annual Medicare Wellness Visit 2009 RSV Immunization or 60+ Years (1 - 1-dose 75+ series) 10/16/2019 COVID-19 Vaccine ( season) 2024 11/16/2022, 03/14/2021, 08/12/2020, Additional history exists DTaP, Tdap and Td Vaccines (2 - Td or Tdap) 08/18/2034 08/18/2024 Colorectal Cancer Screening Colonoscopy (10 Years) Discontinued 06/22/2018, 05/03/2013 Dexa Scan (General) Completed 10/16/2021, 9 Hepatitis C Completed 09/25/2022, 08/20/2021 Pneumococcal Vaccine: 65+ Years Completed 09/25/2022, 08/20/2021 PHQ-2 (Physician [place]) Completed 08/23/2024 Meningococcal B Vaccine Aged Out No l onger eligible based on patient's age to complete this topic Meningococcal Vaccine Aged Out No jossy maira eligible based on patient's age to complete this topic RSV Immunizations Under 20 Months Aged Out No longer eligible based on patient's age to complete this topic Procedures Procedure Name Priority Date/Time Associated Diagnosis Comments CBC W/DIFF AUTOMATED Routine 08/23/2024 3:25 PM CDT Drug therapy COMPREHENSIVE METABOLIC PANEL Routine 08/23/2024 3:25 PM CDT Drug therapy TSH W/REFLEX Routine 08/23/2024 3:25 PM CDT Drug therapy IRON SAT PANEL (IRON,IBC,%SAT) Routine 08/23/2024 3:25 PM CDT Drug therapy Abnormal finding of blood chemistry, unspecified FERRITIN Routine 08/23/2024 3:25 PM CDT Drug therapy Abnormal finding of blood chemistry, unspecified VITAMIN B-12 Routine 08/23/2024 3:25 PM CDT Drug therapy VITAMIN D, 25 OH Routine 08/23/2024 3:25 PM CDT Drug therapy Vitamin D deficiency COLLECTION VENOUS BLOOD VENIPUNCTURE Routine 08/23/2024 3:19 PM CDT Drug therapy CT GENERIC 08/18/2024 IMAGE GENERIC 08/18/2024 IMAGE GENERIC 08/18/2024 CORONAVIRUS (COVID-19) INFLUENZA A & B ANTIGEN IA PANEL Routine 07/14/2024 URTI (acute upper respiratory infection) HEPATITIS C ANTIBODY Routine 09/25/2022 10:06 AM CDT General medical exam BONE DENSITY/DEXA Routine 10/16/2021 12: 00 AM CDT Postmenopausal COLONOSCOPY GENERIC (SCAN ORDER) 06/22/2018 from Last 3 Months or Most Recently Relevant to Health Maintenance Results * TSH W/REFLEX (08/23/2024 3:25 PM CDT) TSH 1.748 0.358 - 3.740 uIU/ML 08/24/2024 1:01 PM CDT [facility] 08/23/2024 3:25 PM CDT us Willis Gill MD LABORATORY Final Result Performing Organization Address City/[facility]/ZIP Co de Phone Number [facility] [address] [place] [address], [place] [phone] * IRON SAT PANEL (IRON,IBC,%SAT) (08/23/2024 3:25 PM CDT) Pathologist [facility] IRON 103 50 - 170 MCG/DL 08/24/2024 1:01 PM CDT [facility] IRON BINDING CAPACITY 256 250 - 450 MCG/DL 08/24/2024 1:01 PM CDT [facility] IRON SATURATION 40 % 1:01 PM CDT [facility] Comment:REFERENCE RANGE NOT ESTABLISHED 08/23/2024 3:25 PM CDT us Willis Gill MD LABORATORY Final Result Performing Organization Address [facility] Co de Phone Number [address] [address], [place] [phone] * VITAMIN B-12 (08/23/2024 3:25 PM CDT) [facility] VITAMIN B12 S/P/B 986 193 - 986 PG/ML 08/24/2024 1:01 PM CDT [facility] 08/23/2024 3:25 PM CDT us Willis Gill MD LABORATORY Final Result Performing Organization Address City/[facility]/ZIP Co de Phone Number [facility] [address] [place] [address], [place] [phone] * (ABNORMAL) COMPREHENSIVE METABOLIC PANEL (08/23/2024 3:25 PM CDT) SODIUM S/P/B 142 136 - 145 MMOL/L 08/24/2024 1:01 PM T [facility] POTASSIUM S/P/B 3.7 3.5 - 5.1 MMOL/L 08/24/2024 1:01 PM CDT [facility] CHLORIDE S/P/B 107 98 - 107 MMOL/L 08/24/2024 1:01 PM CDT [facility] CO2 28.9 21 - 32 MMOL/L 08/24/2024 1:01 PM CDT [facility] GLUCOSE 92 70 - 99 MG/DL 08/24/2024 1:01 PM T [facility] BUN 9 7 - 18 MG/DL 08/24/2024 1:01 PM T [facility] CREATININE S/P/B 0.77 0.55 - 1.02 MG/DL 08/24/2024 1:01 PM T [facility] CALCIUM S/P/B 8.7 8.4 - 10.5 MG/DL 08/24/2024 1:01 PM T [facility] BILIRUBIN TOTAL S/P/B 1.1(H) 0.2 - 1.0 MG/DL 08/24/2024 1:01 [facility] S/P/B 121 55 - 142 U/L 08/24/2024 1:01 PM CDT [facility] AST 34 15 - 37 U/L 08/24/2024 1:01 PM CDT [facility] ALT 37 14 - 59 U/L 08/24/2024 1:01 PM CDT [facility] TOTAL PROTEIN S/P/B 6.3(L) 6.4 - 8.2 G/DL 08/24/2024 1:01 PM T [facility] ALBUMIN S/P/B 3.3(L) 3.4 - 5.0 G/DL 08/24/2024 1:01 PM CDT [facility] ANION GAP 6.1 5 - 15 MMOL/L 08/24/2024 1:01 PM CDT [facility] Comment:REFERENCE RANGE NOT ESTABLISHED OSMOLALITY (CALC) 292 MOSM/KG 025 1:01 PM CDT [facility] Comment:REFERENCE RANGE NOT ESTABLISHED GFR ESTIMATE 78(L) >90 ML/MIN/1. 73 M2 08/24/2024 1:01 PM CDT [facility] GFR NOTES GFR REFERENCE S: 08/24/2024 1:01 PM CDT [facility] Comment: THE ESTIMATED GFR IS CALCULATED USING THE 2020 CKD-EPI EQUATION. THE FOLLOWING CATEGORIES FOR GRADING RENAL FUNCTION ARE RECOMMENDED BY THE INTERNATIONAL SOCIETY OF NEPHROLOGY (KDIGO 2012 CLINICAL PRACTICE GUIDELINE). G1,NORMAL OR HIGH: >89 ml/min/1.73 m2 G2,MILDLY DECREASED: 60-89 ml/min/1.73 m2 G3A,MILDLY TO MODERATELY DECREASED: 45-59 ml/min/1.73 m2 G3B,MODERATELY TO SEVERELY DECREASED: 30-44 ml/min/1.73 m2 G4,SEVERELY DECREASED: 15-29 ml/min/1.73 m2 G5,KIDNEY FAILURE: <15 ml/min/1.73 m2 08/23/2024 3:25 PM CDT Willis Gill MD LABORATORY Final Result [facility] [address] [place] [address], * (ABNORMAL) CBC W/DIFF AUTOMATED (08/23/2024 3:25 PM CDT) WBC 3.46(L) 4.00 - 10.80 x10'3/uL 08/23/2024 7:54 PM CDT [facility] RBC 3.69(L) 4.10 - 5.40 x10'6/uL 08/23/2024 7:54 PM CDT [facility] HGB 12.4 12.0 - 16.0 G/DL 08/23/2024 7:54 PM CDT [facility] HCT 36.7 36.0 - 47.0 % 08/23/2024 7:54 PM CDT [facility] MCV 99.5 78.0 - 100.0 FL 08/23/2024 7:54 PM CDT [facility] MCH 33.6(H) 27.0 - 31.0 PG 08/23/2024 7:54 PM CDT [facility] MCHC 33.8 33.0 - 36.0 G/DL 08/23/2024 7:54 PM CDT [facility] RDW 13.5 11.5 - 14.5 % 08/23/2024 7:54 PM CDT [facility] PLT 100(L) 150 - 350 x10'3/uL 08/23/2024 7:54 PM CDT [facility] MPV 11.4(H) 7.4 - 10.4 FL 08/23/2024 7:54 PM CDT [facility] DIFFERENTIAL TYPE AUTOMATED DIFFERENTIAL 08/23/2024 7:54 PM CDT [facility] NEUTROPHILS % 59.5 % 08/23/2024 7:54 PM CDT [facility] LYMPHOCYTES % 30.6 % 08/23/2024 7:54 PM CDT [facility] MONOCYTES % 8.4 % 08/23/2024 7:54 PM CDT [facility] EOSINOPHILS % 1.2 % 08/23/2024 7:54 PM CDT [facility] BASOPHILS % 0.3 % 08/23/2024 7:54 PM CDT [facility] IMMATURE GRANS % 0.0 % 08/23/2024 7:54 PM CDT [facility] ABS. NEUTROPHILS 2.06 1.60 - 8.30 x10'3/uL 08/23/2024 7:54 PM CDT [facility] ABS. LYMPHOCYTES 1.06 0.80 - 4.70 x10'3/uL 08/23/2024 7:54 PM CDT [facility] ABS. MONOCYTES 0.29 0.00 - 1.50 x10'3/uL 08/23/2024 7:54 PM CDT [facility] ABS. EOSINOPHILS 0.04 0.00 - 0.40 x10'3/uL 08/23/2024 7:54 PM CDT [facility] ABS. BASOPHILS 0.01 0.00 - 0.20 x10'3/uL 08/23/2024 7:54 PM CDT [facility] ABS. IMMATURE GRANULOCYTES 0.00 0.00 - 0.03 x10'3/uL 08/23/2024 7:54 PM CDT [facility] 08/23/2024 3:25 PM CDT us Willis Gill MD LABORATORY Final Result Performing Organization Address City/[facility]/ZIP Co de Phone Number [address] [phone], * VITAMIN D 25 OH (08/23/2024 3:25 PM CDT) Pathologist [facility] VITAMIN D 25 HYDROXY TOTAL S/P/B 55.1 30 - 100 NG/ML 08/24/2024 1:01 PM CDT [facility] Comment: DEFICIENT <20 INSUFFICIENT 20-30 SUFFICIENT 30-100 08/23/2024 3:25 PM CDT us Willis Gill MD LABORATORY Final Result [facility] [address] [place] [address], [place] [phone] * FERRITIN (08/23/2024 3:25 PM CDT) Pathologist [facility] FERRITIN 130.0 8 - 252 NG/ML 08/24/2024 1:01 PM CDT [facility] 08/23/2024 3:25 PM CDT Willis Gill MD LABORATORY Final Result [facility] [address] [place] [address], [place] [phone] * CT GENERIC (08/18/2024) Anatomical Region Laterality Modality Other 08/18/2024 [facility] Scanned SCANNING Final Resu lt * IMAGE GENERIC (08/18/2024) Only the most recent of2 resultswithin the time period is included. Anatomical Region Laterality Modality Other 08/18/2024 [facility] Scanned SCANNING Final Resu lt * (ABNORMAL) CORONAVIRUS (COVID-19) INFLUENZA A & B ANTIGEN IA PANEL (07/14/2024) Pathologist [facility] CORONAVIRUS ANTIGEN IA NEGATIVE NEGATIVE [address], [place] INFLUENZA A POSITIVE(A) NEGATIVE [address], [place] INFLUENZA B NEGATIVE NEGATIVE [address] [place] Internal Control: VALID VALID [address] [place] NASAL STRUCTURE / Unknown 07/14/2024 Willis Gill MD MICROBIOLOGY - GENERAL ORDERABLE S Final Result [address], [place] [address] [place] [address], [place] [phone] * HEPATITIS C ANTIBODY (09/25/2022 10:06 AM CDT) HEPATITIS C AB NON-REACTI VE NON-REACT KYLE 09/25/2022 9:27 PM CDT [facility] Comment: ANTIBODIES TO HCV NOT DETECTED. DOES NOT EXCLUDE THE POSSIBILITY OF EXPOSURE TO HCV. 09/25/2022 10:0 6 AM CDT Willis Gill MD LABORATORY Final Result [facility] [address] [place] [address], [place] [phone] [id number] * BONE DENSITY/DEXA (10/16/2021 12:00 AM CDT) Anatomical Region Laterality Modality Bone Bone Density 10/16/2021 us Willis Gill MD DEXA Final Result * COLONOSCOPY GENERIC (06/22/2018) 06/22/2018 Narrative 06/22/2018 Ordered by an unspecified provider. us Documents Scanned SCANNING Final Result from Last 3 Months or Most Recently Relevant to Health Maintenance Insurance MEDICARE MEDICARE [facility] Care Teams Errand Runner Relationship Specialty Start Date End Date Willis Gill MD [address] [facility] [address] [place] [address] PCP - General INTERNAL MEDICINE 04/03/21 Joe Harman MD [facility]. [address] [place] [address] Andrews Trap Puller CARDIOVASCULAR DISEASE 12/23/15
--- OUTSIDE RECORDS SUMMARY | 2024-08-26 10:57 | XMS_ITS | Encounter Summary ---
Author Organization [facility] Address [facility] [place] [address] Care Team Providers Care Fingerprinter Name Role Phone Dez Al MD Primary Care Provider [phone] Joe Harman MD Unavailable [phone] Eleazar Al MD Primary Care Provider [phone] Eleazar Al MD Primary Care Provider [phone] Eleazar Al MD Primary Care Provider [phone] Perla Luna MD Primary Care Provider Maria D Dawn NP Primary Care Provider Willis Almonte MD Primary Care Provider [phone] Encounter Details Date Type Department Care Team (Late st Contact Info) Description 06/26/2015 [facility] [address] [address] Joe Harman MD [address] [address] Social History Tobacco Use Types Packs/Day Years Used Date Smoking Tobacco: Never Alcohol Use Standard Drinks/Week Comments No 0 (1 standard drink = 0.6 oz pur e alcohol) Comments Unknown Sex and Gender Information Value Date Recorded Sex Assigned at Female 07/14/2024 2:34 PM MAINS AND SERVICE SUPERVISOR Legal Sex Female 10:30 PM CDT Gender Identity Female 09/08/2021 2:46 PM CDT Sexual Orientation Straight 07/14/2024 2: 34 PM MAINS AND SERVICE SUPERVISOR documented as of this encounter Plan of Treatment Upcoming Encounters Date Type Department Care Team (Late st Contact Info) Description 10/25/2024 11:00 AM CDT Office Visit [facility] [address] [facility] [address] [place] [address] Joe Harman MD Three [facility]. [facility] [address] [place], [place] [id number] 01/31/2025 2:40 PM CDT Office Visit [facility] Medical Group Multispecialty Care - [place] [address] [facility] [address] [place], [place] [id number] Willis Gill MD [address] [facility] [address] [place] [address] documented as of this encounter Visit Diagnoses Not on filedocumented in this encounter Additional Health Concerns Infection Onset Date Last Indicated Resolved Time COVID-19 Rule Out 07/14/2024 07/14/2024 07/14/2024 3:12 PM MAINS AND SERVICE SUPERVISOR Influenza - Seasonal 07/14/2024 07/14/2024 025 12:32 AM MAINS AND SERVICE SUPERVISOR documented as of this encounter Care Teams Fingerprinter Relationship Specialty Start Date End Date Dez Al MD [address] [place] [address] PCP - General FAMILY PRACTICE 12/23/15 09/01/16 Eleazar Al MD [address] [place] [address] PCP - General 09/02/16 01/04/17 Eleazar Al MD [address] [place] [address] PCP - General 07/03/15 12/22/15 Eleazar Al MD [address] [place] [address] PCP - General 05/08/13 07/02/15 Perla Luna MD [address] [place] [address] PCP - General FAMILY PRACTICE 07/22/17 01/21/21 Maria D Dawn, PATCH WASHER [address] [place] [address] PCP - General NURSE PRACTITIONER 01/22/21 04/02/21 Willis Gill MD [address] [facility] [address] [place] [address] PCP - General INTERNAL MEDICINE 04/03/21 Joe Harman MD Three [facility]. [address] [place] [address] [place] Food Photographer CARDIOVASCULAR DISEASE 12/23/15 documented as of this encounter
--- OUTSIDE RECORDS SUMMARY | 2024-08-26 10:57 | XMS_ITS | Encounter Summary ---
Author Organization [facility] Address [address] [place] [address] Care Team Providers Care Fell Cutter Name Role Phone Joe Harman MD Unavailable [phone] Willis Gill MD Primary Care Provider [phone] Encounter Details Date Type Department Care Team (Late st Contact Info) Description 09/04/2021 MyChart Message Enc [facility] Medical Group Multispecialty Care - [address] [place] [address] Maria D Dawn, COMPRESSOR HOUSE OPERATOR xray Social History Tobacco Use Types Packs/Day [...] Sex Assigned at Female 07/14/2024 2:34 PM ELECTRONIC SCALE SUBASSEMBLER Legal Sex Female 10:30 PM CDT Gender Identity Female 09/08/2021 2:46 PM CDT Sexual Orientation Straight 07/14/2024 2: 34 PM ELECTRONIC SCALE SUBASSEMBLER Occupation Industry Job Start Date Job End [...] Description 10/25/2024 11:00 AM CDT Office Visit [facility] [address] [facility] [place] [address] [place] [address] Joe [facility] MD [address] [facility] [address] [place] [address] 01/31/2025 2:40 PM CDT Office Visit [facility] Medical Group Multispecialty Care - [place] [address] [place] [address] [address] [place] [address] Willis Gill MD [address] [facility] [address] [place] [address] documented as of this encounter Visit Diagnoses Not on filedocumented in this encounter Additional Health Concerns Infection Onset Date Last Indicated Resolved Time COVID-19 Rule Out 07/14/2024 07/14/2024 07/14/2024 3:12 PM ELECTRONIC SCALE SUBASSEMBLER Influenza - Seasonal 07/14/2024 07/14/2024 025 12:32 AM ELECTRONIC SCALE SUBASSEMBLER Assessment Noted Time PHQ-9 Depression Total Score: 4 08/21/19 22 9:24 AM CDT documented as of this encounter Care Teams Fell Cutter Relationship Specialty [place] [address] [place] [address] [address] [place] [address] PCP - General INTERNAL MEDICINE 04/03/21 Joe Harman MD Three [facility]. [address] [place] [address] [place] Iron Launder Operator CARDIOVASCULAR DISEASE 12/23/15 documented as of this encounter
--- OUTSIDE RECORDS SUMMARY | 2024-08-26 10:57 | XMS_ITS | Encounter Summary ---
Author Organization [facility] Address [address] [place] [address] Care Team Providers Care Order Entry Specialist Name Role Phone Joe Harman MD Unavailable Willis Gill MD Primary Care Provider [phone] Encounter Details Date Type Department Care Team (Late st Contact Info) Description 11/05/2022 MyChart Message Enc [facility] Multispecialty Care - [address] [address] [address] [place] [address] Willis Gill MD [address] [place] [address] [address] [place], [place] [id number] mammogram Social History Tobacco Use Types Packs/Day Years Used Date Smoking Tobacco: Never Smokeless Tobacco: Never Comments:counseled by Dr Leticia massey Alcohol Use Standard Drinks/Week Comments Never 0 (1 standard drink = 0.6 oz pur e alcohol) PHQ-2 Answer Date Recorded Patient Health Questionnaire-2 Score 1 09/25/2022 Comments No Sex and Gender Information Value Date Recorded Sex Assigned at Female 07/14/2024 2:34 PM DIGITAL CONTENT MARKETING MANAGER Legal Sex Female 10:30 PM CDT Gender Identity Female 09/08/2021 2:46 PM CDT Sexual Orientation Straight 07/14/2024 2: 34 PM DIGITAL CONTENT MARKETING MANAGER Occupation Industry Job Start Date Job End Date Not on file Not on file Not on file Not on file documented as of this encounter Plan of Treatment Upcoming Encounters Date Type Department Care Team (Late st Contact Info) Description 10/25/2024 11:00 AM CDT Office Visit [facility] [address], [facility] [address] [place] [address] Joe Harman MD Three [facility]. [facility] [address] [place] [address] 01/31/2025 2:40 PM CDT Office Visit [facility] Multispecialty Care - [address] [address] [address] [place] [address] Willis Gill MD [address] [place] [address] documented as of this encounter Visit Diagnoses Not on filedocumented in this encounter Additional Health Concerns Infection Onset Date Last Indicated Resolved Time COVID-19 Rule Out 07/14/2024 07/14/2024 07/14/2024 3:12 PM DIGITAL CONTENT MARKETING MANAGER Influenza - Seasonal 07/14/2024 07/14/2024 025 12:32 AM DIGITAL CONTENT MARKETING MANAGER Assessment Noted Time PHQ-9 Depression Total Score: 4 08/21/19 22 9:24 AM CDT documented as of this encounter Care Teams Order Entry Specialist Relationship Specialty Start Date End Date Willis Gill MD [address] [place] [address] PCP - General INTERNAL MEDICINE 04/03/21 Joe Harman MD Three [facility]. [facility] [address] [place] [address] Poli Cook Candy CARDIOVASCULAR DISEASE 12/23/15 documented as of this encounter
--- OUTSIDE RECORDS SUMMARY | 2024-08-26 10:57 | XMS_ITS | Encounter Summary ---
Author Organization [facility] Address [address] [place] [address] Care Team Providers Care Trials Manager Name Role Phone Joe Harman MD Unavailable [phone] Willis Gill MD Primary Care Provider [phone] Reason for Visit * Reason Comments Image (SCAN) Encounter Details Date Type Department Care Team (Latest Contact Info) Description 08/18/2024 Scan HEALTH INFO [facility] Scanned, Doc Med Group Image (SCAN) Social History Tobacco Use Types Packs/Day Years Used Date Smoking Tobacco: Never Smokeless Tobacco: Never Comments:counseled by Dr Leticia massey Alcohol Use Standard Drinks/Week Comments Not Currently 0 (1 standard drink = 0.6 oz pur e alcohol) PHQ-2 Answer Date Recorded Patient Health Questionnaire-2 Score 0 04/10/2024 Comments No Sex and Gender Information Value Date Recorded Sex Assigned at Female 07/14/2024 2:34 PM TOOL REPAIR TECHNICIAN Legal Sex Female 10:30 PM CDT Gender Identity Female 09/08/2021 2:46 PM CDT Sexual Orientation Straight 07/14/2024 2: 34 PM TOOL REPAIR TECHNICIAN Occupation Industry Job Start Date Job End Date Not on file Not on file Not on file Not on file documented as of this encounter Plan of Treatment Upcoming Encounters Date Type Department Care Team (Late st Contact Info) Description 10/25/2024 11:00 AM CDT [facility] [address] [place], [place] [id number] Joe Harman MD [facility]. [facility] [address] [place], [place] [address] 01/31/2025 2:40 PM CDT Office Visit [facility] Medical Group Multispecialty Care - [address] [address] [address] [place] [address] Willis Gill MD [address] [address] documented as of this encounter Procedures Procedure Name Priority Date/Time Associated Diagnosis Comments CT GENERIC 08/18/2024 IMAGE GENERIC 08/18/2024 IMAGE GENERIC 08/18/2024 documented in this encounter Results * IMAGE GENERIC (08/18/2024) Anatomical Region Laterality Modality Other 08/18/2024 [facility] [employer] [facility] Scanned SCANNING Final Resu lt * CT GENERIC (08/18/2024) Anatomical Region Laterality Modality Other 08/18/2024 us [employer] [facility] Scanned SCANNING Final Resu lt * IMAGE GENERIC (08/18/2024) Anatomical Region Laterality Modality Other 08/18/2024 [employer] [facility] Scanned SCANNING Final Resu lt documented in this encounter Visit Diagnoses Not on filedocumented in this encounter Additional Health Concerns Assessment Noted Time PHQ-9 Depression Total Score: 1 04/10/20 24 9:35 AM TOOL REPAIR TECHNICIAN documented as of this encounter Care Teams Trials Manager Relationship Specialty Start Date End Date Willis Gill MD [address] [place] [address] PCP - General INTERNAL MEDICINE 04/03/21 Joe Harman MD [address] [address] Poli Doffer CARDIOVASCULAR DISEASE 12/23/15 documented as of this encounter
--- OUTSIDE RECORDS SUMMARY | 2024-08-26 10:57 | XMS_ITS | Encounter Summary ---
Author Organization [facility] Address [address] [place] [address] Care Team Providers Care Buggy Loader Name Role Phone Joe Harman MD Unavailable [phone] Perla Luna MD Primary Care Provider Maria D Dawn NP Primary Care Provider Willis Almonte MD Primary Care Provider [phone] Encounter Details Date Type Department Care Team (Late st Contact Info) Description 09/21/2017 [facility] at [address] [address] Tex Patel MA Social History Tobacco Use Types Packs/Day Years Used Date Smoking Tobacco: Never Smokeless Tobacco: Never Alcohol Use Standard Drinks/Week Comments No 0 (1 standard drink = 0.6 oz pur e alcohol) Comments Unknown Sex and Gender Information Value Date Recorded Sex Assigned at Female 07/14/2024 2:34 PM BLOOD SPLATTER ANALYST Legal Sex Female 10:30 PM CDT Gender Identity Female 09/08/2021 2:46 PM CDT Sexual Orientation Straight 07/14/2024 2: 34 PM BLOOD SPLATTER ANALYST Occupation Industry Job Start Date Job End [...] 10/25/2024 11:00 AM CDT Office Visit [facility] [address] [facility] [address], [place] [address] [place] [address] Joe Harman MD Three [facility]. [place] [address] [place] [address] 01/31/2025 2:40 PM CDT Office Visit [facility] Multispecialty Care - [place] [address] [address] [address] [place], [place] [address] Willis Gill MD [address] [facility] [address] [place] [address] documented as of this encounter Procedures Procedure [...] CHOLESTEROL 114 LDL (CALCULATED) 99 07/25/2020 us [employer] [facility]ORAT[facility] Edited Resul t - Final * CBC (OUTSIDE LAB) (12/26/2019) Pathologist [facility] WBC 3.8 HGB 14.7 HCT 43.3 PLT 139 12/26/2019 [employer] [facility]-OUTSIDE/ABSTRACTED Final Result * COMPREHENSIVE [...] Final Result * CBC (OUTSIDE LAB) (08/17/2018) [facility] WBC 2.9 HGB 13.1 HCT 38.1 PLT [...] Rule Out 07/14/2024 07/14/2024 07/14/2024 3:12 PM BLOOD SPLATTER ANALYST Influenza - Seasonal 07/14/2024 07/14/2024 025 12:32 AM BLOOD SPLATTER ANALYST documented as of this encounter Care Teams Buggy Loader Relationship Specialty Start Date End Date Perla Luna MD Three [facility]. [address] [address] PCP - General FAMILY PRACTICE 07/22/17 01/21/21 Maria D Dawn, MEDICINE AND HEALTH SERVICE MANAGER Three [facility]. [address] [address] PCP - General NURSE PRACTITIONER 01/22/21 04/02/21 Willis Gill MD [address] [facility] [address] [place] [address] PCP - General INTERNAL MEDICINE 04/03/21 Joe Harman MD Three [facility]. [address] [address] Poli Car Chaser CARDIOVASCULAR DISEASE 12/23/15 documented as of this encounter
--- OUTSIDE RECORDS SUMMARY | 2024-08-26 10:57 | XMS_ITS ---
Author Name Claudia Sotoyaya Rajput Address [address] [facility] [address] [place] [address] Phone [phone] Organization [facility] Address [address] [place] [address] Phone [phone] Care Team Providers Care Policy Loan Calculator Name Role Phone Micah Soto Unavailable Willis Gill Unavailable [phone] Joe Harman Unavailable [phone] Functional Status No Results Mental Status No [...]
--- OUTSIDE RECORDS SUMMARY | 2024-08-26 10:57 | XMS_ITS | Encounter Summary ---
Author Organization [facility] Address [address] [place] [address] Care Team Providers Care Grinding Mill Operator Name Role Phone Joe Harman MD Unavailable [phone] Willis Gill MD Primary Care Provider [phone] Encounter Details Date Type Department Care Team (Late st Contact Info) Description 01/22/2022 [employer] Message Enc [facility] Medical Group Multispecialty Care - [address] [place] [address] Mychart, [facility] Provider Lidoderm patches Social History Tobacco Use [...] Sex Assigned at Female 07/14/2024 2:34 PM SPONGE FISHERMAN Legal Sex Female 10:30 PM CDT Gender Identity Female 09/08/2021 2:46 PM CDT Sexual Orientation Straight 07/14/2024 2: 34 PM SPONGE FISHERMAN Occupation Industry Job Start Date Job End [...] Description 10/25/2024 11:00 AM CDT Office Visit [facility] [address] [place] [address] Joe Harman MD Three [facility]. [place] [place] [address] 01/31/2025 2:40 PM CDT Office Visit [facility] Medical Group Multispecialty Care - [address] [address] [address] [place] [address] Willis Gill MD [facility] [address] [place] [address] documented as of this encounter Visit Diagnoses Not on filedocumented in this encounter Additional Health Concerns Infection Onset Date Last Indicated Resolved Time COVID-19 Rule Out 07/14/2024 07/14/2024 07/14/2024 3:12 PM SPONGE FISHERMAN Influenza - Seasonal 07/14/2024 07/14/2024 025 12:32 AM SPONGE FISHERMAN Assessment Noted Time PHQ-9 Depression Total Score: 4 08/21/19 22 9:24 AM CDT documented as of this encounter Care Teams Grinding Mill Operator Relationship Specialty Start Date End Date Willis Gill MD [address] [place] [address] 157 [place] [address] PCP - General INTERNAL MEDICINE 04/03/21 Joe Harman MD Three [facility]. [facility] [address] [place] [address] [place] Senior Counsel Commercial CARDIOVASCULAR DISEASE 12/23/15 documented as of this encounter
--- OUTSIDE RECORDS SUMMARY | 2024-08-26 10:57 | XMS_ITS | Encounter Summary ---
Author Organization [facility] Address [address] [place] [address] Care Team Providers Care Sewer System Supervisor Name Role Phone Joe Harman MD Unavailable [phone] Willis Gill MD Primary Care Provider [phone] Encounter Details Date Type Department Care Team (Late st Contact Info) Description 12/01/2023 [employer] Message Enc [facility] Medical Group Multispecialty Care - [address] [place], [place] [address] Experifunt, [facility] Provider Lab Results Social History Tobacco Use [...] Assigned at Female 07/14/2024 2:34 PM MANAGER ADMINISTRATION Legal Sex Female 10:30 PM CDT Gender Identity Female 09/08/2021 2:46 PM CDT Sexual Orientation Straight 07/14/2024 2: 34 PM MANAGER ADMINISTRATION Occupation Industry Job Start Date Job End Date Not on file Not on file Not on file Not on file documented as of this encounter Plan of Treatment Upcoming Encounters Date Type Department Care Team (Late Contact Info) Description 10/25/2024 11:00 AM CDT [facility] [address] [address] [facility] [address] [place] [address] 01/31/2025 2:40 PM CDT Office Visit [facility] Medical Group Multispecialty Care - [address] [address] [address] [place] [address] Willis Gill MD [address] [place] [address] documented as of this encounter Visit Diagnoses Not on filedocumented in this encounter Additional Health Concerns Infection Onset Date Last Indicated Resolved Time COVID-19 Rule Out 07/14/2024 07/14/2024 07/14/2024 3:12 PM MANAGER ADMINISTRATION Influenza - Seasonal 07/14/2024 07/14/2024 025 12:32 AM MANAGER ADMINISTRATION Assessment Noted Time PHQ-9 Depression Total Score: 2 03/12/20 23 10:33 AM CDT documented as of this encounter Care Teams Sewer System Supervisor Relationship Specialty Start Date End Date Willis Gill MD [address] [place] [address] PCP - General INTERNAL MEDICINE 04/03/21 Joe Harman MD Three [facility]. [facility] [address] [place] [address] Poli Dispatcher Motor Vehicle CARDIOVASCULAR DISEASE 12/23/15 documented as of this encounter
--- OUTSIDE RECORDS SUMMARY | 2024-08-26 10:57 | XMS_ITS | Encounter Summary ---
Author Organization [facility] Address [address] [place] [address] Care Team Providers Care Fabrication And Layout Craftsman Name Role Phone Joe Harman MD Unavailable [phone] Willis Gill MD Primary Care Provider [phone] Encounter Details Date Type Department Care Team (Late st Contact Info) Description 02/26/2022 [employer] Message Enc [facility] Medical Group Multispecialty Care - [address] [place] [address] Zoie Lutz, MOLD DESIGN ENGINEER Mammogram Social History Tobacco Use Types Packs/Day [...] Sex Assigned at Female 07/14/2024 2:34 PM OVEREDGER Legal Sex Female 10:30 PM CDT Gender Identity Female 09/08/2021 2:46 PM CDT Sexual Orientation Straight 07/14/2024 2: 34 PM OVEREDGER Occupation Industry Job Start Date Job End Date Not on file Not on file Not on file Not on file documented as of this encounter Plan of Treatment Upcoming Encounters Date Type Department Care Team (Late st Contact Info) Description 10/25/2024 11:00 AM CDT [facility] [address] [address] Joe Harman MD Three [facility]. [facility] [address] [place] [address] 01/31/2025 2:40 PM CDT Office Visit [facility] Medical Group Multispecialty Care - [address] [address] [address] [place] [address] Willis Gill MD [address] [place] [address] documented as of this encounter Visit Diagnoses Not on filedocumented in this encounter Additional Health Concerns Infection Onset Date Last Indicated Resolved Time COVID-19 Rule Out 07/14/2024 07/14/2024 07/14/2024 3:12 PM OVEREDGER Influenza - Seasonal 07/14/2024 07/14/2024 025 12:32 AM OVEREDGER Assessment Noted Time PHQ-9 Depression Total Score: 4 08/21/19 22 9:24 AM CDT documented as of this encounter Care Teams Fabrication And Layout Craftsman Relationship Specialty Start Date End Date Willis Gill MD [address] [place] [address] PCP - General INTERNAL MEDICINE 04/03/21 Joe Harman MD Three [facility]. [facility] [address] [place] [address] Kenner Inspector Plumbing CARDIOVASCULAR DISEASE 12/23/15 documented as of this encounter
--- OUTSIDE RECORDS SUMMARY | 2024-08-26 10:57 | XMS_ITS | Encounter Summary ---
Author Organization [facility] Address [address] [place] [address] Care Team Providers Care Self Pay Representative Name Role Phone Joe Harman MD Unavailable [phone] Willis Gill MD Primary Care Provider [phone] Encounter Details Date Type Department Care Team (Latest Contact Info) Description 10/23/2021 MyChart Message Enc [facility] Medical Group Multispecialty Care - [address] [address] [address] [place] [address] [place] [address] [place] [address] 157 [place] [address] bone scan results Social History [...] Sex Assigned at Female 07/14/2024 2:34 PM LIMNOLOGIST Legal Sex Female 10:30 PM CDT Gender Identity Female 09/08/2021 2:46 PM CDT Sexual Orientation Straight 07/14/2024 2: 34 PM LIMNOLOGIST Occupation Industry Job Start Date Job End [...] Description 10/25/2024 11:00 AM CDT Office Visit [facility] THREE [facility] [address] [place] [address] Joe Harman MD Three [facility]. [facility] [address] [place] [address] 01/31/2025 2:40 PM CDT Office Visit [facility] Medical Group Multispecialty Care - [address] [address] [address] [place] [address] Willis Gill MD [address] [place] [address] documented as of this encounter Visit Diagnoses Not on filedocumented in this encounter Additional Health Concerns Infection Onset Date Last Indicated Resolved Time COVID-19 Rule Out 07/14/2024 07/14/2024 07/14/2024 3:12 PM LIMNOLOGIST Influenza - Seasonal 07/14/2024 07/14/2024 025 12:32 AM LIMNOLOGIST Assessment Noted Time PHQ-9 Depression Total Score: 4 08/21/19 22 9:24 AM CDT documented as of this encounter Care Teams Self Pay Representative Relationship Specialty Start Date End Date Willis Gill MD [address] [place] [address] PCP - General INTERNAL MEDICINE 04/03/21 Joe Harman MD Three [facility]. [facility] [address] [place] [address] [place] Pest Controller CARDIOVASCULAR DISEASE 12/23/15 documented as of this encounter
--- OUTSIDE RECORDS SUMMARY | 2024-08-26 10:57 | XMS_ITS | Continuity of Care Document ---
Author Organization [facility] Address [address] [place] [address] Phone Care Team Providers Care Card Stripper Name Role Phone Kaushik Ricardo Unavailable Unavailable Advance Directives Directive Yes / No Effective Date File Name No Information Encounters Encounter Description Practice Location Reason(s) For Visit Diagnoses Date Provider Providers [facility] on [facility] [address] [place] [address] [address], [place], [place], [id number], [place] tel:[phone] [facility] No Information Haleigh Faulkner. [address] [place], [address], [place]. tel:[phone] Family History Family Member Type Diagnosis Age At Onset No Information Payers Payer name Insurance type Covered constitution party ID Authoriza tipurvi(s) [employer] SOI CI [id number] Social History Type Description Quantity Date Captured [...]
--- OUTSIDE RECORDS SUMMARY | 2024-08-26 10:58 | XMS_ITS | Referral Summary ---
Author Organization [facility] [address] Address [address] [place] [address] Care Team Providers Care Employment Officer Name Role Phone Willis Gill MD Primary Care Provider [phone] Allergies Active Allergy Reactions Criticality Noted Date [...] on file Legal Sex Female 8:09 PM EQUIPMENT SERVICE TECHNICIAN Gender Identity Not on file Sexual [...] Treatment Not on file Insurance MEDICARE MEDICARE [facility] MEDICARE [facility] Care Teams Employment Officer Relationship Specialty Start Date End Date Willis Gill MD [address] [place] [address] PCP - General Internal Medicine 04/13/23
--- OUTSIDE RECORDS SUMMARY | 2024-08-26 10:58 | XMS_ITS | Continuity of Care Document ---
Author Organization [employer] [place] Address [address] [place] [address] Phone Care Team Providers Care Cardiovascular Tech Name Role Phone Derrick PT,MPT,ATC, Jalil Unavailable Unavai lable Procedures Procedure Date Therapeutic Activities Neuromuscular Re-Ed Therapeutic Exercise Therapeutic Activities Neuromuscular Re-Ed Therapeutic Exercise Therapeutic Activities Neuromuscular Re-Ed Therapeutic Exercise Therapeutic Activities Therapeutic Exercise Therapeutic Activities Neuromuscular Re-Ed Therapeutic Exercise Doc neg elder mal no plan Doc [...] Re-Ed Therapeutic Exercise Progress Note Therapeutic Exercise Therapeutic Activities Neuromuscular Re-Ed Therapeutic Activities Therapeutic Exercise Neuromuscular Re-Ed Therapeutic Activities Neuromuscular Re-Ed Manual Therapy Therapeutic Exercise Neuromuscular Re-Ed Therapeutic Activities Therapeutic Activities Neuromuscular Re-Ed Therapeutic Exercise Therapeutic Activities Neuromuscular Re-Ed Therapeutic Exercise Therapeutic Activities Neuromuscular Re-Ed Therapeutic Exercise Neuromuscular Re-Ed Therapeutic Activities Therapeutic Exercise Doc neg elder mal no [...] Diagnoses Date Provider Providers Copied on Encounter [facility] [facility] [address], [place], [place], [id number], tel:[phone] [place] No Information 2 [facility] [place] Referring Provider: Willis Gill [address], [place], [address]. tel:[phone] [facility], [place], [place], [address], tel:[phone] [place] No Information 0 2 [facility] [place] Referring Provider: Willis Gill, [address], [place], [address]. tel:[phone] [facility], [place], [place], [id number], tel:[phone] [place] No Information 0 2 [place], [place], [place]. Referring Provider: Willis Gill [address], [place], [address]. tel:[phone] [facility], [place], [place], [address], [place] tel:[phone] [place] No Information Sep-2 2 Derrick Harrisn. , [place], [place]. Referring Provider: Willis Gill [address], [place], [address]. tel:[phone] [facility], [place], [place], [address], [place] tel:[phone] [place] No Information Sep-2 2 Derrick Jimenes. , [place], [place]. Referring Provider: Willis Gill [address], [place], [address]. tel:[phone] [facility], [place], [place], [address], [place] tel:[phone] [place] No Information Sep-1 2 Derrick Jimenes. , [place], [place]. Referring Provider: Willis Gill [address], [place], [address]. tel:[phone] [facility], [place], [place], [address], [place] tel:[phone] [place] No Information Aug-0 2 Derrick Harrisn. , [place], [place]. [facility], [place], [place], [address], [place] tel:[phone] [place] No Information Aug-0 2 Derrick Harrisn. , [place], [place]. [facility], [place], [place], [address], [place] tel:[phone] [place] No Information Aug-0 2 Derrick Harrisn. , [place], [place]. [facility], [place], [place], [address], [place] tel:[phone] [place] No Information 2 Meza Jalil. , [place], [place]. [facility], [place], [place], [address], [place] tel:[phone] [place] No Information 2 Meza Jalil. , [place], [place]. [facility], [place], [place], [address], [place] tel:[phone] [place] No Information 2 Meza Jalil. , [place], [place]. [facility], [place], [place], [address], [place] tel:[phone] [place] No Information 2 Meza Jalil. , [place], [place]. [facility], [place], [place], [address], [place] tel:[phone] [place] No Information 2 Meza Jalil. , [place], [place]. [facility], [place], [place], [address], [place] tel:[phone] [place] No Information 2 Meza Jalil. , [place], [place]. [facility], [place], [place], [address], [place] tel:[phone] [place] No Information 2 Meza Jalil. , [place], [place]. [facility], [place], [place], [address], [place] tel:[phone] [place] No Information 2 Meza Jalil. , [place], [place]. [facility], [place], [place], [address], [place] tel:[phone] [place] No Information 2 Meza Jalil. , [place], [place]. [facility], [place], [place], [address], [place] tel:[phone] [place] No Information [place]-3 0 2 Meza Jalil. , [place], [place]. [facility], [address], [place], [place], [address], tel:[phone] [place] No Information [place]-2 2 Meza Jalil. , [place], [place]. [facility], [place], [place], [address], tel:[phone] [place] No Information [place]-2 2 Meza Jalil. , [place], [place]. [facility], [place], [place], [address], tel:[phone] [place] No Information [place]-2 2 Meza Jalil. , [place], [place]. [facility], [place], [place], [address], [place] tel:[phone] [place] No Information [place]-1 2 Meza Jalil. , [place], [place]. [facility], [place], [place], [address], [place] tel:[phone] [place] No Information [place]-1 2 Meza Jalil. , [place], [place]. [facility], [place], [place], [address], [place] tel:[phone] [place] No Information [place]-1 2 Meza Jalil. , [place], [place]. [facility], [address], [place], [place], [address], [place] tel:[phone] [place] No Information [place]-1 0 2 Meza Jalil. , [place], [place]. [facility], [place], [place], [address], [place] tel:[phone] [place] Low back pain Apr-2 201 9 Ralph Solano. . Referring Provider: Bob Luna [address], [place], [address]. tel:[phone] [facility], [address] [facility], [place], [place], [address], [place] tel:[phone] [place] Low back pain Apr-2 2-201 9 Makler Luke. . Referring Provider: [address], [place], [address]. tel:[phone] [facility], [place], [place], [address], [place] tel:[phone] [place] Low back pain Apr-1 7-201 9 Makler Luke. . Referring Provider: oBb Luna, [address], [place], [address]. tel:[phone] [place] [address], [address] [address], [place], [place], [address], [place] tel:[phone] [place] Low back pain Apr-1 5-201 9 Makler Luke. . Referring Provider: [address], [place], [address]. tel:[phone] [place] [address] [address] [address], [place], [place], [address], [place] tel:[phone] [place] Low back pain Apr-1 0-201 9 Makler Luke. . Referring Provider: [address], [place], [address]. tel:[phone] [facility] [facility], [place], [place], [address], [place] tel:[phone] [place] Low back pain Apr-0 8-201 9 Makler Luke. . Referring Provider: [address], [place], [address]. tel:[phone] [facility] [facility], [place], [place], [address], [place] tel:[phone] [place] Low back pain Apr-0 3201 9 Ralph Solano. . Referring Provider: Bob Luna, [facility] [facility] [address], [place], [address]. tel:[phone] [facility], [address] [place], [place] [address], [place], [place], [address], [place] tel:[phone] [place] No Information Feb-2 1 5 Andrei Chika. [address] [facility], [address], [place], [place], [facility], [place]. tel:[phone] Referring Provider: Eleazar Jim, [address], [place], [address]. tel:[phone] [place] [address], [address] [place], [place] [address], [place], [place], [address], [place] tel:[phone] [place] No Information 1 5 Andrei Cihka. [address] [place] [address], [address], [place], [place], [facility], [place]. tel:[phone] Referring Provider: Eleazar Jim, [address], [place], [address]. tel:[phone], [place], [place], [address], [place] tel:[phone] [place] No Information 0 9201 5 Andrei Chika. [address] [place] [address], [address], [place], [address], [place]. tel:[phone] Referring Provider: Eleazar Jim, [address], [place], [address]. tel:[phone], [place], [place], [address], [place] tel:[phone] [place] No Information 0 7 5 Andrei Chika. [address] [place] [address], [address], [place], [address], . tel:[phone] Referring Provider: Eleazar Jim, [address], [place], [address]. tel:[phone] [place] [address], [address] [facility] [address], [place], [place], [address], [place] tel:[phone] [place] No Information Oct-0 5-201 5 Andrei Chika. [address] [place] [address], [address], [place], [address], [place]. tel: [phone] Referring Provider: Eleazar Jim, [address], [place], [address]. tel:[phone] [place] [address], [address] [facility] [address], [place], [place], [address], [place] tel:[phone] [place] Unsp rotatr-cuff tear/ruptr of left shoulder, not traumaStiffne ss of left shoulder, not elsewhere classifiedPai n in left shoulderPerso nal history of (healed) traumatic fracturePain in right wristStiffnes s of right wrist, not elsewhere classified Oct-0 2-201 5 Andrei Chika. [address] [place] [address], [address], [place], [place], [facility], [place]. tel:[phone] Referring Provider: Eleazar Jim, [address], [place], [address]. tel:[phone] [place] [address], [address] [facility] [address] [place] [address], [id number], [place] tel:[phone] [place] No Information Sep-3 0-201 5 Andrei Chika. [address] [place] [address], [address], [place], [place], [facility], [place]. tel:[phone] Referring Provider: Eleazar Jim, [address], [place], [address]. tel:[phone] [place] [address], [address] [facility] [address], [place], [address], [place] tel:[phone] [place] No Information Sep-2 8-201 5 Andrei Chika. [address] [place] [address], [address], [place], [address], [place]. tel:[phone] Referring Provider: Eleazar Jim, [address], [place], [address]. tel:[phone] [facility] [address] [place], [place] [address], [place], [place], [address], [place] tel:[phone] [place] No Information Sep-2 5 Andrei Chika. [address] [facility], [address], [place], [facility], . tel:[phone] Referring Provider: Dewey [place] [place], [address]. tel:[phone] [facility] [address] [place] [address] [address], [place], [place], [address], [place] tel:[phone] [place] Pain in joint involving handPain in joint involving shoulder region Sep- Andrei Mccartneyie. [address] [facility], [address], [place], [address], . tel:[phone] Referring Provider: [place], [address]. tel:[phone] Family History Family Member Type Diagnosis Age At Onset No Information Payers Payer name Insurance type Covered constitution party ID Authorjovannya tipurvi(s) Medicare [place] [id number] [facility] [id number] Social History Type Description Quantity Date Captured [...]
--- OUTSIDE RECORDS SUMMARY | 2024-08-26 10:58 | XMS_ITS | Clinical Summary ---
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
--- OUTSIDE RECORDS SUMMARY | 2024-08-26 10:58 | XMS_ITS | Clinical Summary ---
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
== END 2024-08-26 10:54 | disposition home or self-care (01) ==
PROVIDERS: PCP Internal Medicine; Visit Provider Internal Medicine
DX: Z12.31 Encounter for screening mammogram for malignant neoplasm of breast (principal); Z78.0 Asymptomatic menopausal state; M81.0 Age-related osteoporosis without current pathological fracture; M85.852 Other specified disorders of bone density and structure, left thigh; M85.851 Other specified disorders of bone density and structure, right thigh
CPT/HCPCS: 77063; 77067; 77080

== ENCOUNTER 2025-03-15 08:09 | Outpatient (CLI) | payer MEDICARE, SELFPAY ==
--- NOTE | ~2025-03-15 | US_ITS ---
ULTRASOUND ABDOMEN LIMITED (RIGHT UPPER QUADRANT) Clinical History: thrombocytopenia Comparison: None Technique: Right upper quadrant sonography Findings: Liver: Normal size. Normal echotexture. No intrahepatic biliary ductal dilatation. Normal hepatopedal flow main portal vein. Common Duct: Normal caliber. 4 mm. Gallbladder: Removed. Pancreas: Obscured by bowel gas. Spleen: Enlarged. 12.8 cm length IMPRESSION: 1. Spleen enlarged. 2. No acute findings. Reviewed, dictated and finalized at location R.
== END 2025-03-15 08:10 | disposition home or self-care (01) ==
PROVIDERS: PCP Internal Medicine Hematology & Oncology; Visit Provider Internal Medicine Hematology & Oncology
DX: D69.6 Thrombocytopenia, unspecified (principal); D64.9 Anemia, unspecified
CPT/HCPCS: 76705